=== PATIENT | female | born 1945 | race Caucasian/White ===

== ENCOUNTER → 2016-04-22 | Outpatient (CLI) | payer MEDICARE, OTHER ==
[~2016-04-22] MED LIST: ATR20T PO; BIOT25006 PO; FISH1CAP15 PO; LACT1CAP66 PO; LOSA100T7 PO; LVT.05T PO; NIAC250T17 PO; PNT40TEC PO; SERT100T PO
--- OUTSIDE RECORDS SUMMARY | 2016-04-22 11:01 | XMS REPORT | Continuity of Care Document ---
Author Author [facility] Organization [facility] Address Unknown Phone Unavailable Allergies Active Description Code Type Severity Reaction Onset Reported/Identified Relationship to Patient Clinical Status Yes Sulfa (Sulfonamide Antibiotics) [id number] Drug Allergy Unknown N/A 06/06/2008 Medications Problems Date Dx Coded Attending Type Code Diagnosis Diagnosed By 02/08/2013 MICHOACANO HARRINGTON PEARL TECHNICIAN Ot 327.23 OBSTRUCTIVE SLEEP APNEA (ADULT) ( PEDIATR 05/28/2013 JEIMY KINSEY FACC, MAYA FACP CCDS Ot 244.9 HYPOTHYROIDISM NOS 05/28/2013 JEIMY KINSEY FACC, MAYA FACP CCDS Ot 272.4 HYPERLIPIDEMIA NEC/NOS 05/28/2013 JEIMY KINSEY FACC, ALI FACP CCDS Ot 401.9 HYPERTENSION NOS 05/28/2013 JEIMY KINSEY FACC, ALI FACP CCDS Ot 780.57 UNSPECIFIED SLEEP APNEA 05/28/2013 JEIMY KINSEY FACC, MAYA FACP CCDS Ot 780.79 OTH MALAISE FATIGUE 05/28/2013 JEIMY KINSEY FACC, MAYA FACP CCDS Ot 785.1 PALPITATIONS 05/28/2013 JEIMY KINSEY FACC, MAYA FACP CCDS Ot 786.09 RESPIRATORY ABNORM NEC 05/28/2013 JEIMY KINSEY FACC, MAYA FACP CCDS Ot 786.59 CHEST PAIN NEC 05/28/2013 JEIMY KINSEY FACC, MAYA FACP CCDS Ot V58.69 OTH MED,LT,CURRENT USE 11/14/2014 Ot V76.12 11/14/2014 Ot 729.81 11/14/2014 Ot 396.8 11/14/2014 Ot 397.0 11/14/2014 Ot 429.3 11/14/2014 Ot 786.09 11/14/2014 Ot V17.49 11/14/2014 Ot 786.09 11/14/2014 Ot 786.50 11/14/2014 Ot V58.66 11/14/2014 Ot V58.69 11/14/2014 Ot V76.12 11/14/2014 Ot 786.09 11/14/2014 REYNALDO KINSEY, MAICO Chicas Ot 793.89 11/14/2014 REYNALDO KINSEY, MAICO Chicas Ot V76.12 12/08/2014 MAICO JACOBS MD Ot V76.12 01/21/2015 CHARLEY BERG DO Ot G47.33 01/21/2015 CHARLEY BERG DO Ot R06.09 07/18/2015 Ot 729.81 SWELLING OF LIMB 07/18/2015 Ot 396.8 MITR/AORTIC MULT INVOLV 07/18/2015 Ot 397.0 TRICUSPID VALVE DISEASE 07/18/2015 Ot 429.3 CARDIOMEGALY 07/18/2015 Ot 786.09 RESPIRATORY ABNORM NEC 07/18/2015 Ot V17.49 FAMILY HISTORY OF OTHER CARDIOVASCULAR D 07/18/2015 Ot 786.09 RESPIRATORY ABNORM NEC 07/18/2015 Ot 786.50 CHEST PAIN NOS 07/18/2015 Ot V58.66 LONG-TERM (CURRENT) USE OF ASPIRIN 07/18/2015 Ot V58.69 OTH MED,LT,CURRENT USE 07/18/2015 Ot V76.12 OTH SCREEN MAMMO-MALIGN NEOPLASM OF WOLF 07/18/2015 Ot 786.09 RESPIRATORY ABNORM NEC 07/18/2015 REYNALDO KINSEY, MAICO Chicas Ot 793.89 OTH (ABN) FINDINGS ON RADIOLOGICAL EXAMI 07/18/2015 REYNALDO KINSEY, MAICO Chicas Ot V76.12 OTH SCREEN MAMMO-MALIGN NEOPLASM OF WOLF 07/18/2015 MAICO JACOBS MD Ot V76.12 OTH SCREEN MAMMO-MALIGN NEOPLASM OF WOLF 07/18/2015 CHARLEY BERG DO Ot G47.33 OBSTRUCTIVE SLEEP APNEA (ADULT) (PEDIATR 07/18/2015 CHARLEY BERG DO Ot R06.09 OTHER FORMS OF DYSPNEA 07/21/2015 KAMAR REYNA APRN Ot M19.012 PRIMARY OSTEOARTHRITIS, LEFT SHOULDER 07/21/2015 KAMAR REYNA APRN Ot M25.512 PAIN IN LEFT SHOULDER 07/28/2015 KAMAR REYNA APRN Ot M25.512 PAIN IN LEFT SHOULDER 07/28/2015 KAMAR REYNA APRN Ot M54.9 DORSALGIA, UNSPECIFIED 08/11/2015 AXEL, KAMAR M BANKING OFFICER Ot M19.012 PRIMARY OSTEOARTHRITIS, LEFT SHOULDER 08/11/2015 KAMAR REYNA Bharat BANKING OFFICER Ot M25.512 PAIN IN LEFT SHOULDER 08/14/2015 ISAAC REYNAARA Nicholson BANKING OFFICER Ot M19.012 PRIMARY OSTEOARTHRITIS, LEFT SHOULDER 08/14/2015 ISAAC REYNAARA Nicholson BANKING OFFICER Ot M25.512 PAIN IN LEFT SHOULDER 01/12/2016 KAMAR REYNA BANKING OFFICER Ot Z12.31 ENCNTR SCREEN MAMMOGRAM FOR MALIGNANT NE 01/12/2016 KAMAR REYNA BANKING OFFICER Ot Z12.31 ENCNTR SCREEN MAMMOGRAM FOR MALIGNANT NE 01/13/2016 KAMAR REYNA BANKING OFFICER Ot Z12.31 ENCNTR SCREEN MAMMOGRAM FOR MALIGNANT NE 01/13/2016 KAMAR REYNA BANKING OFFICER Ot Z12.31 ENCNTR SCREEN MAMMOGRAM FOR MALIGNANT NE 02/03/2016 KAMAR REYNA APRN Ot Z12.31 ENCNTR SCREEN MAMMOGRAM FOR MALIGNANT NE Procedures Results Encounters ACCT No. Visit Date/Time Discharge Status Pt. Type Provider Facility Loc./Unit Complaint [id number] 12/29/2014 13:55:00 2014 23:59:59 CLS Outpatient CHARLEY BERG DO [facility] RT [id number] 11/14/2014 13:13:00 2014 23:59:59 CLS Outpatient MAICO JACOBS MD [facility] RAD [id number] 05/28/2013 06:59:00 2013 14:00:00 DIS Outpatient JEIMY KINSEY FACCMAYA FACP CCDS [facility] CATH [id number] 04/25/2013 09:40:00 2013 23:59:59 CLS Outpatient MAICO JACOBS MD [facility] RAD [id number] 02/07/2013 20:55:00 2012 07:10:00 DIS Outpatient MICHOACANO HARRINGTON PEARL TECHNICIAN [facility] SLEEP [id number] 01/12/2016 09:28:00 ACT Outpatient KAMAR REYNA APRN [facility] RAD SCREENING [id number] 07/24/2015 15:05:00 ACT Outpatient KAMAR REYNA APRN [facility] RAD [id number] 07/18/2015 08:24:00 ACT Outpatient KAMAR REYNA APRN [facility] RAD [id number] 11/14/2014 13:12:00 Document Registration [id number] 11/14/2014 13:12:00 Document Registration [id number] 11/14/2014 13:12:00 Document Registration [id number] 11/14/2014 13:12:00 Document Registration [id number] 08/05/2010 08:52:00 Document Registration [id number] 08/10/2009 09:15:00 Document Registration
--- NOTE | 2016-04-22 11:23 | Diagnostic Imaging Report ---
PA and lateral views of the chest. INDICATION: Cough. COMPARISON: 12/29/2014. FINDINGS: There is cardiomegaly with no pulmonary edema. The lungs are hyperinflated. No focal consolidation. No effusion or pneumothorax. The mediastinum and bambi appear unremarkable. IMPRESSION: Cardiomegaly. COPD. Dictated by: Dictated on workstation # [id number]
== END ==
LOC: RAD 10:57
PROVIDERS: ATTEND Nurse Practitioner Family
DX: J45.909 Unspecified asthma, uncomplicated (principal)
CPT/HCPCS: 71020

== ENCOUNTER → 2016-05-18 | Outpatient (CLI) | payer MEDICARE, OTHER ==
[2016-05-18 14:46] LABS: BASOPHILS % (AUTO) 0 % (0-10); EOSINOPHILS # (AUTO) 0.1 10^3/uL (0.0-0.3); EOSINOPHILS % (AUTO) 3 % (0-10); LYMPHOCYTES # (AUTO) 1.2 X 10^3 (1.0-4.0); LYMPHOCYTES % (AUTO) 25 % (12-44); MEAN CORPUSCULAR HEMOGLOBIN 33 PG (25-34); MEAN CORPUSCULAR HGB CONC 34 G/DL (32-36); MEAN CORPUSCULAR VOLUME 97 FL (80-99); MEAN PLATELET VOLUME 10.1 FL (7.4-10.4); MONOCYTES # (AUTO) 0.4 X 10^3 (0.0-1.0); MONOCYTES % (AUTO) 8 % (0-12); NEUTROPHILS # (AUTO) 3.1 X 10^3 (1.8-7.8); NEUTROPHILS % (AUTO) 64 % (42-75); PLATELET COUNT 254 10^3/uL (130-400); RED BLOOD COUNT 4.24 10^6/uL (4.35-5.85); RED CELL DISTRIBUTION WIDTH 13.5 % (10.0-14.5); WHITE BLOOD COUNT 4.9 10^3/uL (4.3-11.0)
[2016-05-18 15:01] LABS: LYMPHOCYTES % (MANUAL) 20 %; NEUTROPHILS % (MANUAL) 64 %
[2016-05-18 15:02] LABS: EOSINOPHILS % (MANUAL) 2 %; REACTIVE LYMPHOCYTES 5 %; STOMATOCYTES SLIGHT
[2016-05-19 02:33] LABS: IGE DETAIL 10.8 IU/mL
[2016-05-19 07:46] LABS: INT IGE See Footnote
[2016-05-19 08:59] LABS: ELM TREE <0.35 kU/L (<0.35); ELM TREE CL CLASS 0; OAK TREE <0.35 kU/L (<0.35); OAK TREE CL CLASS 0; PECAN TR CL CLASS 0
[2016-05-19 09:00] LABS: BERMUDA CL CLASS 0; BERMUDA GRASS RAST <0.35 kU/L (<0.35); CAT DANDER CL CLASS 0; CAT DANDER RAST <0.35 kU/L (<0.35); DOG DANDER CL CLASS 0; DOG DANDER RAST <0.35 kU/L (<0.35); JOHNSON GR CL CLASS 0; JOHNSON GRASS RAST <0.35 kU/L (<0.35); KENT BLUE CL CLASS 0; KENTUCKY BLUE GRASS RAST <0.35 kU/L (<0.35); MARSH ELDER RAST <0.35 kU/L (<0.35); RAGWEED CL CLASS 0; RAGWEED RAST <0.35 kU/L (<0.35); ROUGH MARSH CL CLASS 0
[2016-05-19 09:01] LABS: ALLERGEN INTERP SEE FOOTNOTE; ALT TEN CL CLASS 0; CLADOSPORIUM CL CLASS 0; CLADOSPORIUM MOLD RAST <0.35 kU/L (<0.35); DUST MITE CL CLASS 0; DUST MITE RAST <0.35 kU/L (<0.35)
== END ==
LOC: LAB 13:53
PROVIDERS: ATTEND Nurse Practitioner Family
DX: J45.909 Unspecified asthma, uncomplicated (principal); R06.09 Other forms of dyspnea; G47.33 Obstructive sleep apnea (adult) (pediatric); Z87.891 Personal history of nicotine dependence
CPT/HCPCS: 36415; 82785; 85007; 85027; 86003

== ENCOUNTER → 2017-01-16 | Outpatient (CLI) | payer MEDICARE, OTHER | LOC: CARD 10:16 | PROVIDERS: ATTEND Nurse Practitioner Family | DX: I65.23 Occlusion and stenosis of bilateral carotid arteries (principal); I10 Essential (primary) hypertension; E78.4 Other hyperlipidemia; I34.0 Nonrheumatic mitral (valve) insufficiency; G47.33 Obstructive sleep apnea (adult) (pediatric) | CPT/HCPCS: 93306 ==

== ENCOUNTER → 2017-02-27 | Outpatient (CLI) | payer MEDICARE, OTHER ==
--- NOTE | 2017-02-27 13:35 | Diagnostic Imaging Report ---
INDICATION: Screening. The current study was also evaluated with a Computer Aided Detection (CAD) system. Comparison made with prior examination from 01/12/2016, 11/14/2014, 04/25/13 and 12/28/10. FINDINGS: There are scattered fibroglandular densities bilaterally. There are a few benign type calcifications. There is no dominant mass, spiculated lesion or suspicious calcification identified. Skin, nipples and axilla are unremarkable. IMPRESSION: Category 2 benign. ACR BI-RADS Category 2: Benign findings. Result letter will be mailed to the patient. Note: At least 10% of breast cancer is not imaged by mammography. Dictated by: Dictated on workstation # [id number]
== END ==
LOC: RAD 10:01
PROVIDERS: ATTEND Nurse Practitioner Family
DX: Z12.31 Encounter for screening mammogram for malignant neoplasm of breast (principal)
CPT/HCPCS: 77067

== ENCOUNTER 2017-11-16 05:36 | Outpatient (CLI) | payer MEDICARE, OTHER ==
[~2017-11-16] VITALS: Ht 162.6 cm; Wt 90.7 kg
[2017-11-16] MEDS ORDERED: LEVO75TA6 PO (09:43)
[2017-11-16] MEDS ORDERED: MULT-985 PO (09:43)
[2017-11-16] MEDS ORDERED: MELO7.5T46 PO (09:43)
[2017-11-16] MEDS ORDERED: MONT10TA24 PO (09:43)
[2017-11-16] MEDS ORDERED: ASCO500T5 PO (09:43)
[2017-11-16] MEDS ORDERED: GABA-488 PO (09:43)
[2017-11-16] MEDS ORDERED: ATOR20TA66 PO (09:43)
[2017-11-16] MEDS ORDERED: PANT40TA3 PO (09:43)
[2017-11-16] MEDS ORDERED: LOSA100T8 PO (09:43)
[2017-11-16] MEDS ORDERED: LACT1CAP74 PO (09:43)
[2017-11-16] MEDS ORDERED: SERT100T8 PO (09:43)
[2017-11-17] MEDS ORDERED: HYOS0.1283 SL (11:21)
== END 2017-11-16 09:47 | disposition home or self-care (01) ==
LOC: PREOP 05:36
PROVIDERS: ATTEND Internal Medicine
DX: Z01.818 Encounter for other preprocedural examination (principal)

== ENCOUNTER 2017-11-17 07:56 | Day surgery (SDC) | payer MEDICARE, OTHER ==
--- NOTE | 2017-11-16 19:47 | HISTORY AND PHYSICAL ---
DATE OF SERVICE: COLONOSCOPY HISTORY AND PHYSICAL HISTORY OF PRESENT ILLNESS: The patient is a 72-year-old white female referred by Dr. Sahu for screening colonoscopy. She also reports symptomatic reflux sounding symptoms despite 40 mg of pantoprazole daily, so she will be undergoing diagnostic EGD on 11/17. I last performed colonoscopy on her 10 years ago, at which time no evidence for neoplasia was identified. She does report about a month history of intermittent diarrhea following unknown antibiotic use for an abscessed tooth, thus she underwent root canal and has been off of antibiotics for the past several weeks. She reports 1 to 2 loose stools without evidence for blood and no chills, fever or tenesmus. She has no associated abdominal cramping and is better, but still reports postprandial stool urgency with occasional fecal incontinence. She is still passing a fair amount of gas, much more so than baseline. She denies any associated dysphagia, melena or bright red blood per rectum, but does have significant epigastric and lower precordial burning, worse in the evening. It does not wake her up from sleep. She reports no known past history of EGD evaluation. FAMILY HISTORY: She is not aware of any family history for GI tract malignancy including colon cancer. Father and mother both had history of hypertension. Father also had coronary artery disease, in 70s. SOCIAL HISTORY: She reports no significant past drinking and no smoking history. PAST SURGICAL HISTORY: He has had bilateral cataract extraction, right total knee replacement in March of this year and right hammertoe release. She has had several hand surgeries. PAST MEDICAL HISTORY: Significant for thyroid replacement, depression, reflux, hypertension, hyperlipidemia with no known history of coronary artery disease. She underwent cardiac catheterization in 2013, which revealed no significant disease. Ejection fraction was estimated at 60%. She also has obstructive sleep apnea. Her diarrhea has been significant enough that she has had several episodes of fecal incontinence, the last occurring about 2 weeks ago. There is associated urgency with this. PHYSICAL EXAMINATION: GENERAL: Reveals a pleasant white female who did not appear to be in acute distress. VITAL SIGNS: Weight was up 9 pounds from 10 years ago. Blood pressure 109/80, heart rate 72 and regular. HEENT: Unremarkable. Sclerae nonicteric. NECK: Revealed no JVD, adenopathy or bruits. CHEST: Clear to auscultation. CARDIOVASCULAR: Reveals a regular rate and rhythm without murmur, S3 or S4. ABDOMEN: Soft, supple without mass, organomegaly or tenderness. Bowel sounds are positive. No distention is noted. No bruits are appreciated. EXTREMITIES: Reveal no cyanosis, clubbing or edema. ASSESSMENT AND PLAN: The patient is set up for screening colonoscopy on 11/17 as well as diagnostic EGD for evaluation of reflux symptoms that are refractory to PPI therapy and no reported past history of EGD evaluation. I thank you for the referral of this pleasant lady. Job ID: [id number] DocumentID: [id number] Dictated Date: 11/15/2017 17:08:41 Auto Bench Mechanic Date: 11/15/2017 17:42:36 Dictated By: ELIO NOEL MD [facility]
[~2017-11-17] VITALS: Ht 162.6 cm; Wt 90.7 kg
[~2017-11-17 07:56] MED LIST changes: +ASCO500T5 PO; +ATOR20TA66 PO; +GABA-488 PO; +LACT1CAP74 PO; +LEVO75TA6 PO; +LOSA100T8 PO; +MELO7.5T46 PO; +MONT10TA24 PO; +MULT-985 PO; +PANT40TA3 PO; +SERT100T8 PO
--- OUTSIDE RECORDS SUMMARY | 2017-11-17 08:01 | XMS REPORT | CCD ---
Author Author Michaela Sahu Organization Michaela Sahu MD, [facility] Address [address] [place] [address] Phone Care Team Providers Care Swatch Cutter Name Role Phone PP Unavailable CCM Unavailable Summary Purpose Interface Exchange Insurance Providers Payer name Policy type / Coverage type Covered republican ID Effective Begin Date Effective End Date WPS Medicare Part B [id number] Unknown [employer] [id number] Unknown Family history Mother Diagnosis Age At Onset Arthritis Unknown Osteoporosis Unknown Hypertension Unknown Hyperlipidemia Unknown Father Diagnosis Age At Onset Arthritis Unknown Alcoholism Unknown Hypertension Unknown Anemia Unknown Brother Diagnosis Age At Onset Skin cancer Unknown Arthritis Unknown Hypertension Unknown Hyperlipidemia Unknown Sister Diagnosis Age At Onset Arthritis Unknown Diabetes Unknown Depression Unknown Hyperlipidemia Unknown Breast cancer Unknown Hypertension Unknown Anemia Unknown Osteoporosis Unknown Social History Social History Element Codes Description Effective Dates Number of children Unknown 0 04/23/2013 Living arrangements Unknown House 04/23/[address]: 0721843 Former smoker 04/23/2013 Number of years using tobacco Unknown 20 quit 1998 1 1/2 pack daily 04/23/[address]: 311282 Currently drinks alcohol 10-15 DRINKS WEEKLY 04/23/2013 Has the patient ever used illegal drugs? Unknown Has never used illegal drugs 04/23/2013 Allergies, Adverse Reactions, Alerts Substance Reaction Codes Entered Date Inactivated Date Status Grasses rash, cough Unknown 04/22/2013 No Inactive Date Active Mold cough, rash Unknown 04/22/2013 No Inactive Date Active SULFA (SULFONAMIDES) emesis Unknown 04/22/2013 No Inactive Date Active Past Medical History Illness Codes Condition Status Onset Date Resolved Date Localized edema ICD-9 : 782.3 ICD-10: R60.0 Active 02/09/2017 Unknown Rash and other nonspecific skin eruption ICD-9: 782.1 ICD-10: R21 Active 02/09/2017 Unknown Encounter for screening mammogram for malignant neoplasm of breast ICD-9: V76.12 ICD-10: Z12.31 Active 01/07/2016 Unknown Diseases of lips ICD-9 : 528.5 ICD-10: K13.0 Active 12/03/2015 Unknown Pain in left arm ICD-9 : 729.5 ICD-10: M79.602 Active 07/20/2015 Unknown Pain in left shoulder ICD-9: 719.41 ICD-10: M25.512 Active 07/20/2015 Unknown Pain in thoracic spine ICD-9: 724.1 ICD-10: M54.6 Active 07/20/2015 Unknown Dyspnea ICD-9: 786.09 Active 10/27/2014 Unknown Screening for malignant neoplasm of breast ICD-9: V76.10 Active 10/27/2014 Unknown Smoking history ICD-9 : V15.82 Active 10/27/2014 Unknown Osteoarthritis Unknown Active 06/23/2014 Unknown Osteoarthritis ICD-9: 715.90 Active 06/22/2014 Unknown Shoulder pain ICD-9: 719.41 Active 06/22/2014 Unknown Hyperlipidemia Unknown Active 04/21/2014 Unknown HYPERLIPIDEMIA ICD-9: 272.4 Active 04/21/2014 Unknown Pain, dental ICD-9: 525.9 Active 12/23/2013 Unknown Sinusitis ICD-9: 473.9 Active 12/23/2013 Unknown ESSENTIAL HYPERTENSION ICD-9: 401.9 Active 12/02/2013 Unknown HYPOTHYROIDISM ICD-9: 244.9 Active 12/02/2013 Unknown Asthma Unknown Active 08/01/2013 Unknown Asthma, allergic ICD-9 : 493.90 Active 08/01/2013 Unknown Depression Unknown Active 04/23/2013 Unknown Hypertension Unknown Active 04/23/2013 Unknown Hypothryroidism Unknown Active 04/23/2013 Unknown AA (alcohol abuse) ICD -9: 305.00 Active 04/23/2013 Unknown Dietary counseling ICD -9: V65.3 Active 04/23/2013 Unknown EDEMA ICD-9: 782.3 Active 04/23/2013 Unknown OBESITY ICD-9: 278.00 Active 04/23/2013 Unknown Pes planus ICD-9: 734 Active 04/23/2013 Unknown Psoriasis ICD-9: 696.1 Active 04/23/2013 Unknown Problems Condition Codes Effective Dates Condition Status Localized edema ICD-9 : 782.3 ICD-10: R60.0 02/09/2017 Active Rash and other nonspecific skin eruption ICD-9: 782.1 ICD-10: R21 02/09/2017 Active Encounter for screening mammogram for malignant neoplasm of breast ICD-9: V76.12 ICD-10: Z12.31 01/07/2016 Active Diseases of lips ICD-9 : 528.5 ICD-10: K13.0 12/03/2015 Active Pain in left arm ICD-9 : 729.5 ICD-10: M79.602 07/20/2015 Active Pain in left shoulder ICD-9: 719.41 ICD-10: M25.512 07/20/2015 Active Pain in thoracic spine ICD-9: 724.1 ICD-10: M54.6 07/20/2015 Active Dyspnea ICD-9: 786.09 10/27/2014 Active Screening for malignant neoplasm of breast ICD-9: V76.10 10/27/2014 Active Smoking history ICD-9 : V15.82 10/27/2014 Active Osteoarthritis Unknown 06/23/2014 Active Osteoarthritis ICD-9: 715.90 06/22/2014 Active Shoulder pain ICD-9: 719.41 06/22/2014 Active Hyperlipidemia Unknown 04/21/2014 Active HYPERLIPIDEMIA ICD-9: 272.4 04/21/2014 Active Pain, dental ICD-9: 525.9 12/23/2013 Active Sinusitis ICD-9: 473.9 12/23/2013 Active ESSENTIAL HYPERTENSION ICD-9: 401.9 12/02/2013 Active HYPOTHYROIDISM ICD-9: 244.9 12/02/2013 Active Asthma Unknown 08/01/2013 Active Asthma, allergic ICD-9 : 493.90 08/01/2013 Active Depression Unknown 04/23/2013 Active Hypertension Unknown 04/23/2013 Active Hypothryroidism Unknown 04/23/2013 Active AA (alcohol abuse) ICD -9: 305.00 04/23/2013 Active Dietary counseling ICD -9: V65.3 04/23/2013 Active EDEMA ICD-9: 782.3 04/23/2013 Active OBESITY ICD-9: 278.00 04/23/2013 Active Pes planus ICD-9: 734 04/23/2013 Active Psoriasis ICD-9: 696.1 04/23/2013 Active Medications Medication Codes Instructions Start Date Stop Date Status Fill Instructions betamethasone dipropionate 0.05 % topical cream RxNorm: 581464 1 Application TOP BID 02/09/2017 No Stop Date Active doxycycline hyclate 100 mg capsule RxNorm: 8873125 1 Capsule(s) PO BID 02/09/2017 02/18/2017 Inactive Lasix 20 mg tablet RxNorm: 411203 1 Tablet(s) PO daily 201602/08/2017 Inactive potassium chloride ER 10 mEq tablet,extended release RxNorm: 286803 1 Tablet(s) PO daily take while on the lasix 02/09/2017 02/11/2017 Inactive betamethasone dipropionate 0.05 % topical cream RxNorm: 280090 1 Application TOP BID 02/09/2017 02/08/2017 Inactive potassium chloride ER 10 mEq tablet,extended release RxNorm: 773222 1 Tablet(s) PO daily take while on the lasix 02/09/2017 02/08/2017 Inactive doxycycline hyclate 100 mg capsule RxNorm: 9247338 1 Capsule(s) PO BID 02/09/2017 02/08/2017 Inactive Lasix 20 mg tablet RxNorm: 993247 1 Tablet(s) PO daily 201602/11/2017 Inactive losartan 100 mg tablet RxNorm: 714734 TAKE 1 TABLET EVERY DAY 09/28/2016 09/22/2017 Active sertraline 100 mg tablet RxNorm: 349766 TAKE 1 TABLET EVERY DAY 09/28/2016 09/22/2017 Active pantoprazole 40 mg tablet,delayed release RxNorm: 795680 TAKE 1 TABLET EVERY DAY 09/28/2016 09/22/2017 Active Synthroid 75 mcg tablet RxNorm: 524857 TAKE 1 TABLET EVERY DAY 04/25/2016 04/19/2017 Active pantoprazole 40 mg tablet,delayed release RxNorm: 262556 TAKE 1 TABLET EVERY DAY 12/14/2015 09/27/2016 Inactive sertraline 100 mg tablet RxNorm: 788039 TAKE 1 TABLET EVERY DAY 12/14/2015 09/27/2016 Inactive losartan 100 mg tablet RxNorm: 820640 TAKE 1 TABLET EVERY DAY 12/14/2015 09/27/2016 Inactive Voltaren 1 % topical gel RxNorm: 486137 1 TOP BID 07/21/2015 No Stop Date Active naproxen 500 mg tablet RxNorm: 127249 1 Tablet(s) PO BID 201508/03/2015 Inactive Pennsaid 20 mg/gram/actuation (2 %) topical soln in metered -dose pump RxNorm: 4393343 1 Application TOP BID as needed for pain 07/17/2015 08/15/2015 Inactive cyclobenzaprine 5 mg tablet RxNorm: 058177 1 Tablet(s) PO TID as needed muscle spasms 07/17/2015 07/26/2015 Inactive sertraline 100 mg tablet RxNorm: 449446 1 TABLET(S) PO DAILY 12/13/2015 Inactive sertraline 100 mg tablet RxNorm: 717709 Tablet(s) 1 TABLET(S) PO DAILY 04/08/2015 12/13/2015 Inactive Synthroid 75 mcg tablet RxNorm: 654210 Tablet(s) 1 TABLET(S) PO DAILY 04/08/2015 10/04/2015 Inactive [SAVINGS FOR UNINSURED PATIENTS -- BIN:[id number], PCN: ASPROD1, Group: [id number], ID# [id number], Process claim through [employer], for questions: [phone]. THIS IS NOT INSURANCE.] losartan 100 mg tablet RxNorm: 403733 1 Tablet(s) PO daily 10/04/2015 Inactive Singulair 10 mg tablet RxNorm: 712084 1 TABLET(S) PO DAILY 07/31/2015 Inactive Synthroid 75 mcg tablet RxNorm: 709416 1 TABLET(S) PO DAILY 04/07/2015 Inactive [SAVINGS FOR UNINSURED PATIENTS -- BIN:900133, PCN: ASPROD1, Group: [id number] , ID# [id number], Process claim through [employer], for questions: . THIS IS NOT INSURANCE.] albuterol sulfate HFA 90 mcg/actuation aerosol inhaler RxNorm: 4641443 1 Puff(s) INH QID as needed dyspnea 10/28/201402/24 Inactive Singulair 10 mg tablet RxNorm: 329605 1 Tablet(s) PO daily 09/201402/01/2015 Inactive sertraline 100 mg tablet RxNorm: 696015 1 TABLET(S) PO DAILY 04/07/2015 Inactive losartan 100 mg tablet RxNorm: 929481 1 Tablet(s) PO daily 04/07/2015 Inactive pantoprazole 40 mg tablet,delayed release RxNorm: 771461 1 Tablet(s) PO daily 08/04/2014 07/29/2015 Inactive Zorvolex 35 mg capsule RxNorm: 5133030 1 Capsule(s) PO TID as needed for pain 06/23/2014 07/16/2014 Inactive [SAVINGS FOR NON-COVERED DRUGS -- BIN:411243, PCN: ASPROD1, Group: XXXXX, ID# [id number], Questions: . THIS IS NOT INSURANCE.] clindamycin 300 mg capsule RxNorm: 662235 1 Capsule(s) PO TID 12/23/2013 12/29/2013 Inactive [SAVINGS FOR UNINSURED PATIENTS -- BIN:270399, PCN: ASPROD1, Group: [id number], ID# [id number], Process claim through [employer], for questions: [phone]. THIS IS NOT INSURANCE.] Synthroid 75 mcg tablet RxNorm: 811425 1 Tablet(s) PO daily 04/201312/17/2014 Inactive [SAVINGS FOR UNINSURED PATIENTS -- BIN:809053, PCN: ASPROD1, Group: [id number] , ID# [id number], Process claim through [employer], for questions: . THIS IS NOT INSURANCE.] Nasonex 50 mcg/actuation [place] RxNorm: 107002 1 [place] NASAL BID 08/01/2013 02/26/2014 Inactive Synthroid 50 mcg tablet RxNorm: 897665 1 Tablet(s) PO daily 01/201412/22/2013 Inactive sertraline 100 mg tablet RxNorm: 218409 1 Tablet(s) PO daily 06/20/2014 Inactive Synthroid 50 mcg tablet RxNorm: 263760 1 Tablet(s) PO daily 08/201307/31/2013 Inactive losartan 100 mg tablet RxNorm: 011393 1 Tablet(s) PO daily 08/201306/20/2014 Inactive pantoprazole 40 mg tablet,delayed release RxNorm: 395377 1 Tablet(s) PO daily 06/26/2013 06/20/2014 Inactive levothyroxine 50 mcg tablet RxNorm: 384993 1 Tablet(s) PO daily 06/05/2013 06/25/2013 Inactive clobetasol 0.05 % topical cream RxNorm: 003847 1 Application TOP PRN 04/23/2013 No Stop Date Active put on pt profile, she will call to dash levothyroxine 50 mcg tablet RxNorm: 388562 1 Tablet(s) PO daily 04/23/2013 06/04/2013 Inactive Fish Oil 1,000 mg capsule RxNorm: 2 Capsule(s) PO BID No Start Date Active has 2000 mg take one bid niacin 500 mg tablet RxNorm: 560811 1 Tablet(s) PO QHS No Start Date Active Tylenol 325 mg tablet RxNorm: 313119 Tablet(s) PO BID No Start Date Active atorvastatin 20 mg tablet RxNorm: 659520 1 Tablet(s) PO QHS No Start Date Active losartan 100 mg tablet RxNorm: 589599 1 Tablet(s) PO daily No Start Date 06/25/2013 Inactive levothyroxine 50 mcg tablet RxNorm: 505000 oral No Start Date 04/22/2013 Inactive pantoprazole 40 mg tablet,delayed release RxNorm: 367523 1 Tablet(s) PO daily No Start Date 06/25/2013 Inactive clobetasol 0.05 % topical cream RxNorm: 787069 1 Application TOP PRN No Start Date 04/22/2013 Inactive sertraline 100 mg tablet RxNorm: 000928 1 Tablet(s) PO daily No Start Date 06/25/2013 Inactive Medication Administered No Medication Administered data Immunizations Vaccine Codes Date Status Influenza CVX: 141 01/09/2017 completed Pneumococcal CVX: 133 04/14/2016 completed Influenza CVX: 141 12/03/2012 completed Assessments Condition Codes Effective Dates Localized edema ICD-10: R60.0 ICD-9: 782.3 02/09/2017 Rash and other nonspecific skin eruption ICD-10: R21 ICD-9: 782.1 02/09/2017 Encounter for screening mammogram for malignant neoplasm of breast ICD-10: Z12.31 ICD-9: V76.12 01/08/2016 Diseases of lips ICD-10: K13.0 ICD-9: 528.5 12/04/2015 Pain in left arm ICD-10: M79.602 ICD-9: 729.5 07/21/2015 Pain in left shoulder ICD-10: M25.512 ICD-9: 719.41 07/21/2015 Pain in thoracic spine ICD-10: M54.6 ICD-9: 724.1 07/21/2015 Screening for malignant neoplasm of breast ICD-9: V76.10 10/28/2014 Dyspnea ICD-9: 786.09 10/28/2014 Smoking history ICD-9: V15.82 10/28/2014 ESSENTIAL HYPERTENSION ICD-9: 401.9 10/28 Shoulder pain ICD-9: 719.41 06/23/2014 Osteoarthritis ICD-9: 715.90 06/23/2014 HYPOTHYROIDISM ICD-9: 244.9 04/21/2014 HYPERLIPIDEMIA ICD-9: 272.4 04/21/2014 Sinusitis ICD-9: 473.9 12/23/2013 HYPOPOTASSEMIA ICD-9: 276.8 12/23/2013 Pain, dental ICD-9: 525.9 12/23/2013 Asthma, allergic ICD-9: 493.90 2013 OBESITY ICD-9: 278.00 04/23/2013 Pes planus ICD-9: 734 04/23/2013 Psoriasis ICD-9: 696.1 04/23/2013 Dietary counseling ICD-9: V65.3 2013 AA (alcohol abuse) ICD-9: 305.00 2013 EDEMA ICD-9: 782.3 04/23/2013 Reason For Visit Reason For Visit Effective Dates Notes rash 02/09/2017 oral pain 12/04/2015 shoulder pain 07/21/2015 shoulder pain 07/17/2015 hypertension 10/28/2014 hip pain 06/23/2014 rt hypertension 04/21/2014 hypertension 12/23/2013 hypertension 12/02/2013 hypertension 08/01/2013 hair loss 04/23/2013 Results Observation Observation Code Item Item Code Result Date Free T4 Agw312 FREE T4 1.00 ng/dL 10/28/2014 Metabolic Ord15 NA 137 mEq/L 10/28/2014 Metabolic Ord15 K 4.5 mEq/L 10/28/2014 Metabolic Ord15 CL 103 mEq/L 10/28/2014 Metabolic Ord15 CO2 26.0 mEq/L 10/28/2014 Metabolic Ord15 GLUCOSE 108 mg/dL 10/28/2014 Metabolic Ord15 BUN 24 mg/dL 10/28/2014 Metabolic Ord15 Creat 1.1 mg/dL 10/28/2014 Metabolic Ord15 B/C Ratio 21.4 Ratio 10/28/2014 Metabolic Ord15 eGFR 51 ml/min/1.73m2 10/28/2014 Metabolic Ord15 Osmo 278 mOsmo 10/28/2014 Metabolic Ord15 ANION GAP 13 10/28/2014 Metabolic Ord15 CALCIUM 9.8 mg/dL 10/28/2014 Tsh Ord6 hTSH II 1.26 uIU/mL 10/28/2014 FREE T4 1354583 FREE T4 1.22 NG/DL 12/02/2013 TSH 0383662 TSH 2.064 uIU/ML 12/02/2013 GFR CALC 2601073 GFR AA 57.0L ML/MIN 12/02/2013 GFR CALC 0644711 GFR NON-AA 47.0L ML/MIN 12/02/2013 CHEM 14 1809030 AST 20 U/L 12/02/2013 CHEM 14 2353208 ALT 20 IU/L 12/02/2013 CHEM 14 3794339 BUN 21 MG/DL 12/02/2013 CHEM 14 7216825 ALBUMIN 4.4 GM/DL 12/02/2013 CHEM 14 1388977 CHLORIDE 104 MMOL/L 12/02/2013 CHEM 14 2965664 BILI TOT 0.3 MG/DL 12/02/2013 CHEM 14 3803519 ALK PHOS 80 U/L 12/02/2013 CHEM 14 7606917 SODIUM 139 MMOL/L 12/02/2013 CHEM 14 7104560 CREATININE 1.15 MG/DL 12/02/2013 CHEM 14 6569175 CALCIUM 9.7 MG/DL 12/02/2013 CHEM 14 0415837 POTASSIUM 4.5 MMOL/L 12/02/2013 CHEM 14 9265456 PROT TOT 6.7 GM/DL 12/02/2013 CHEM 14 8881823 GLUCOSE 102 MG/DL 12/02/2013 CHEM 14 2891495 BICARB 29 MMOL/L 12/02/2013 CHEM 14 3864327 ANION GAP 6 MEQ/L 12/02/2013 Review of Systems System Result Effective Dates Constitutional No recent illness 2016 Constitutional No chills 02/09/2017 Constitutional No diaphoresis 02/09/2017 Constitutional No fever 02/09/2017 Eyes No eye erythema 02/09/2017 Ears/Nose/Throat/Neck No nasal discharge 02/09/2017 Cardiovascular No chest pain/pressure Cardiovascular No dyspnea 02/09/2017 Respiratory No cough 02/09/2017 Respiratory No chest congestion 2016 Gastrointestinal No abdominal pain 2016 Musculoskeletal No joint complaint 2016 Dermatologic rash 02/09/2017 Neurologic No alteration of consciousness 02/09/2017 Neurologic No mental status change 2016 Constitutional No recent illness 2015 Constitutional No chills 12/04/2015 Constitutional No diaphoresis 12/04/2015 Constitutional No fever 12/04/2015 Eyes No eye erythema 12/04/2015 Ears/Nose/Throat/Neck oral lesion 2015 Ears/Nose/Throat/Neck oral pain 2015 Cardiovascular No dyspnea 12/04/2015 Cardiovascular No chest pain/pressure Respiratory No cough 12/04/2015 Respiratory No dyspnea 12/04/2015 Dermatologic sores 12/04/2015 Neurologic No alteration of consciousness 12/04/2015 Neurologic No mental status change 2015 Constitutional No recent illness 2015 Constitutional No fever 07/21/2015 Eyes No eye erythema 07/21/2015 Eyes No vision change 07/21/2015 Ears/Nose/Throat/Neck No nasal allergies 07/21/2015 Ears/Nose/Throat/Neck No nasal discharge 07/21/2015 Ears/Nose/Throat/Neck No sinus congestion 07/21/2015 Cardiovascular No chest pain/pressure Respiratory No chest congestion 2015 Respiratory No cough 07/21/2015 Respiratory No dyspnea 07/21/2015 Musculoskeletal stiffness 07/21/2015 Musculoskeletal No swelling 07/21/2015 Musculoskeletal arthralgia(s) 07/21/2015 Musculoskeletal joint complaint 2015 Musculoskeletal muscle weakness 2015 Musculoskeletal No myalgias 07/21/2015 Neurologic No alteration of consciousness 07/21/2015 Neurologic No mental status change 2015 Constitutional No recent illness 2015 Constitutional No chills 07/17/2015 Constitutional fatigue 07/17/2015 Constitutional No fever 07/17/2015 Constitutional No insomnia 07/17/2015 Constitutional obesity 07/17/2015 Eyes No eye erythema 07/17/2015 Eyes No vision change 07/17/2015 Ears/Nose/Throat/Neck No sinus congestion 07/17/2015 Cardiovascular No chest pain/pressure Respiratory No dyspnea 07/17/2015 Gastrointestinal No constipation 2015 Gastrointestinal No diarrhea 07/17/2015 Genitourinary/Nephrology No dysuria 07/16 Musculoskeletal stiffness 07/17/2015 Musculoskeletal No swelling 07/17/2015 Musculoskeletal arthralgia(s) 07/17/2015 Musculoskeletal muscle weakness 2015 Musculoskeletal No myalgias 07/17/2015 Ears/Nose/Throat/Neck No nasal allergies 07/17/2015 Ears/Nose/Throat/Neck No nasal discharge 07/17/2015 Respiratory No chest congestion 2015 Respiratory No cough 07/17/2015 Musculoskeletal joint complaint 2015 Neurologic No alteration of consciousness 07/17/2015 Neurologic No mental status change 2015 Constitutional No recent illness 2014 Constitutional No chills 10/28/2014 Constitutional fatigue 10/28/2014 Constitutional No fever 10/28/2014 Constitutional No insomnia 10/28/2014 Constitutional obesity 10/28/2014 Eyes No blindness 10/28/2014 Eyes No vision change 10/28/2014 Ears/Nose/Throat/Neck No dental pain 09/2014 Ears/Nose/Throat/Neck No dizziness 2014 Ears/Nose/Throat/Neck No dysphagia 2014 Ears/Nose/Throat/Neck No headache 2014 Ears/Nose/Throat/Neck No hearing loss 09/2014 Ears/Nose/Throat/Neck No nasal allergies 10/28/2014 Ears/Nose/Throat/Neck No sore throat 09/2014 Ears/Nose/Throat/Neck No postnasal drip 10/28/2014 Ears/Nose/Throat/Neck No sinus congestion 10/28/2014 Cardiovascular No chest pain/pressure 09/2014 Cardiovascular dyspnea 10/28/2014 Cardiovascular No edema 10/28/2014 Cardiovascular exercise intolerance 10/28 Cardiovascular hypertension 10/28/2014 Cardiovascular No near-syncope/dizziness 10/28/2014 Cardiovascular No palpitations 2014 Respiratory chest congestion 10/28/2014 Respiratory chest tightness 10/28/2014 Respiratory No cigarette smoking 2014 Respiratory cough 10/28/2014 Respiratory No dyspnea 10/28/2014 Respiratory No pedal edema 10/28/2014 Respiratory No snoring 10/28/2014 Respiratory No wheezing 10/28/2014 Gastrointestinal No hemorrhoids 2014 Gastrointestinal No abdominal pain 2014 Gastrointestinal No constipation 2014 Gastrointestinal No diarrhea 10/28/2014 Gastrointestinal gastroesophageal reflux 10/28/2014 Gastrointestinal No melena 10/28/2014 Gastrointestinal No nausea 10/28/2014 Gastrointestinal No vomiting 10/28/2014 Genitourinary/Nephrology No dysuria 10/28 Genitourinary/Nephrology No nocturia 09/2014 Genitourinary/Nephrology No urinary incontinence 10/28/2014 Genitourinary/Nephrology urinary retention/hesitancy 10/28/2014 Musculoskeletal stiffness 10/28/2014 Musculoskeletal No swelling 10/28/2014 Musculoskeletal arthralgia(s) 10/28/2014 Musculoskeletal muscle weakness 2014 Musculoskeletal No myalgias 10/28/2014 Dermatologic rash 10/28/2014 Neurologic No ataxia 10/28/2014 Neurologic No dizziness 10/28/2014 Psychiatric No anxiety 10/28/2014 Psychiatric depression 10/28/2014 Constitutional No recent illness 2014 Constitutional No chills 06/23/2014 Constitutional fatigue 06/23/2014 Constitutional No fever 06/23/2014 Constitutional No insomnia 06/23/2014 Constitutional obesity 06/23/2014 Eyes No blindness 06/23/2014 Eyes No vision change 06/23/2014 Ears/Nose/Throat/Neck No dental pain 05/2014 Ears/Nose/Throat/Neck No dizziness 2014 Ears/Nose/Throat/Neck No dysphagia 2014 Ears/Nose/Throat/Neck No headache 2014 Ears/Nose/Throat/Neck No hearing loss 05/2014 Ears/Nose/Throat/Neck No nasal allergies 06/23/2014 Ears/Nose/Throat/Neck No sore throat 05/2014 Ears/Nose/Throat/Neck No postnasal drip 06/23/2014 Ears/Nose/Throat/Neck No sinus congestion 06/23/2014 Cardiovascular No chest pain/pressure 05/2014 Cardiovascular dyspnea 06/23/2014 Cardiovascular No edema 06/23/2014 Cardiovascular exercise intolerance 06/23 Cardiovascular hypertension 06/23/2014 Cardiovascular No near-syncope/dizziness 06/23/2014 Cardiovascular No palpitations 2014 Respiratory chest congestion 06/23/2014 Respiratory chest tightness 06/23/2014 Respiratory No cigarette smoking 2014 Respiratory cough 06/23/2014 Respiratory No dyspnea 06/23/2014 Respiratory No pedal edema 06/23/2014 Respiratory No snoring 06/23/2014 Respiratory No wheezing 06/23/2014 Gastrointestinal No hemorrhoids 2014 Gastrointestinal No abdominal pain 2014 Gastrointestinal No constipation 2014 Gastrointestinal No diarrhea 06/23/2014 Gastrointestinal gastroesophageal reflux 06/23/2014 Gastrointestinal No melena 06/23/2014 Gastrointestinal No nausea 06/23/2014 Gastrointestinal No vomiting 06/23/2014 Genitourinary/Nephrology No dysuria 06/23 Genitourinary/Nephrology No nocturia 05/2014 Genitourinary/Nephrology No urinary incontinence 06/23/2014 Genitourinary/Nephrology urinary retention/hesitancy 06/23/2014 Musculoskeletal stiffness 06/23/2014 Musculoskeletal No swelling 06/23/2014 Musculoskeletal arthralgia(s) 06/23/2014 Musculoskeletal muscle weakness 2014 Musculoskeletal No myalgias 06/23/2014 Dermatologic rash 06/23/2014 Neurologic No ataxia 06/23/2014 Neurologic No dizziness 06/23/2014 Psychiatric No anxiety 06/23/2014 Psychiatric depression 06/23/2014 Musculoskeletal neck pain 06/23/2014 Musculoskeletal back pain 06/23/2014 Constitutional No recent illness 2014 Constitutional No chills 04/21/2014 Constitutional fatigue 04/21/2014 Constitutional No fever 04/21/2014 Constitutional No insomnia 04/21/2014 Constitutional obesity 04/21/2014 Eyes No blindness 04/21/2014 Eyes No vision change 04/21/2014 Ears/Nose/Throat/Neck No dental pain 03/2014 Ears/Nose/Throat/Neck No dizziness 2014 Ears/Nose/Throat/Neck No dysphagia 2014 Ears/Nose/Throat/Neck No headache 2014 Ears/Nose/Throat/Neck No hearing loss 03/2014 Ears/Nose/Throat/Neck No nasal allergies 04/21/2014 Ears/Nose/Throat/Neck No sore throat 03/2014 Ears/Nose/Throat/Neck No postnasal drip 04/21/2014 Ears/Nose/Throat/Neck No sinus congestion 04/21/2014 Cardiovascular No chest pain/pressure 03/2014 Cardiovascular dyspnea 04/21/2014 Cardiovascular No edema 04/21/2014 Cardiovascular exercise intolerance 04/21 Cardiovascular hypertension 04/21/2014 Cardiovascular No near-syncope/dizziness 04/21/2014 Cardiovascular No palpitations 2014 Respiratory chest congestion 04/21/2014 Respiratory chest tightness 04/21/2014 Respiratory No cigarette smoking 2014 Respiratory cough 04/21/2014 Respiratory No dyspnea 04/21/2014 Respiratory No pedal edema 04/21/2014 Respiratory No snoring 04/21/2014 Respiratory No wheezing 04/21/2014 Gastrointestinal No hemorrhoids 2014 Gastrointestinal No abdominal pain 2014 Gastrointestinal No constipation 2014 Gastrointestinal No diarrhea 04/21/2014 Gastrointestinal gastroesophageal reflux 04/21/2014 Gastrointestinal No melena 04/21/2014 Gastrointestinal No nausea 04/21/2014 Gastrointestinal No vomiting 04/21/2014 Genitourinary/Nephrology No dysuria 04/21 Genitourinary/Nephrology No nocturia 03/2014 Genitourinary/Nephrology No urinary incontinence 04/21/2014 Genitourinary/Nephrology urinary retention/hesitancy 04/21/2014 Musculoskeletal stiffness 04/21/2014 Musculoskeletal No swelling 04/21/2014 Musculoskeletal arthralgia(s) 04/21/2014 Musculoskeletal muscle weakness 2014 Musculoskeletal No myalgias 04/21/2014 Dermatologic rash 04/21/2014 Neurologic No ataxia 04/21/2014 Neurologic No dizziness 04/21/2014 Psychiatric No anxiety 04/21/2014 Psychiatric depression 04/21/2014 Constitutional recent illness 12/23/2013 Constitutional fatigue 12/23/2013 Psychiatric No anxiety 12/23/2013 Psychiatric No depression 12/23/2013 Constitutional No chills 12/23/2013 Constitutional No fever 12/23/2013 Constitutional No insomnia 12/23/2013 Constitutional obesity 12/23/2013 Eyes No blindness 12/23/2013 Eyes No vision change 12/23/2013 Ears/Nose/Throat/Neck dental pain 2013 Ears/Nose/Throat/Neck No dizziness 2013 Ears/Nose/Throat/Neck No dysphagia 2013 Ears/Nose/Throat/Neck No headache 2013 Ears/Nose/Throat/Neck No hearing loss 04/2013 Ears/Nose/Throat/Neck No nasal allergies 12/23/2013 Ears/Nose/Throat/Neck No sore throat 04/2013 Ears/Nose/Throat/Neck No postnasal drip 12/23/2013 Ears/Nose/Throat/Neck No sinus congestion 12/23/2013 Cardiovascular No chest pain/pressure 04/2013 Cardiovascular dyspnea 12/23/2013 Cardiovascular No edema 12/23/2013 Cardiovascular exercise intolerance 12/23 Cardiovascular hypertension 12/23/2013 Cardiovascular No near-syncope/dizziness 12/23/2013 Cardiovascular No palpitations 2013 Respiratory chest congestion 12/23/2013 Respiratory chest tightness 12/23/2013 Respiratory No cigarette smoking 2013 Respiratory cough 12/23/2013 Respiratory No dyspnea 12/23/2013 Respiratory No pedal edema 12/23/2013 Respiratory No snoring 12/23/2013 Respiratory No wheezing 12/23/2013 Gastrointestinal No abdominal pain 2013 Gastrointestinal No constipation 2013 Gastrointestinal No diarrhea 12/23/2013 Gastrointestinal gastroesophageal reflux 12/23/2013 Genitourinary/Nephrology No dysuria 12/23 Genitourinary/Nephrology No nocturia 04/2013 Genitourinary/Nephrology No urinary incontinence 12/23/2013 Genitourinary/Nephrology urinary retention/hesitancy 12/23/2013 Musculoskeletal stiffness 12/23/2013 Musculoskeletal No swelling 12/23/2013 Musculoskeletal arthralgia(s) 12/23/2013 Musculoskeletal muscle weakness 2013 Musculoskeletal No myalgias 12/23/2013 Dermatologic rash 12/23/2013 Constitutional fatigue 12/02/2013 Constitutional No insomnia 12/02/2013 Cardiovascular No chest pain/pressure Gastrointestinal No constipation 2013 Genitourinary/Nephrology urinary retention/hesitancy 12/02/2013 Respiratory cough 12/02/2013 Respiratory chest congestion 12/02/2013 Constitutional No recent illness 2013 Constitutional No chills 12/02/2013 Constitutional No fever 12/02/2013 Constitutional obesity 12/02/2013 Eyes No blindness 12/02/2013 Eyes No vision change 12/02/2013 Ears/Nose/Throat/Neck No dental pain Ears/Nose/Throat/Neck No dizziness 2013 Ears/Nose/Throat/Neck No dysphagia 2013 Ears/Nose/Throat/Neck No headache 2013 Ears/Nose/Throat/Neck No hearing loss Ears/Nose/Throat/Neck No nasal allergies 12/02/2013 Ears/Nose/Throat/Neck No sore throat Ears/Nose/Throat/Neck No postnasal drip 12/02/2013 Ears/Nose/Throat/Neck No sinus congestion 12/02/2013 Cardiovascular dyspnea 12/02/2013 Cardiovascular No edema 12/02/2013 Cardiovascular exercise intolerance 12/02 Cardiovascular hypertension 12/02/2013 Cardiovascular No near-syncope/dizziness 12/02/2013 Cardiovascular No palpitations 2013 Respiratory chest tightness 12/02/2013 Respiratory No cigarette smoking 2013 Respiratory No dyspnea 12/02/2013 Respiratory No pedal edema 12/02/2013 Respiratory No snoring 12/02/2013 Respiratory No wheezing 12/02/2013 Gastrointestinal No hemorrhoids 2013 Gastrointestinal No abdominal pain 2013 Gastrointestinal No diarrhea 12/02/2013 Gastrointestinal gastroesophageal reflux 12/02/2013 Gastrointestinal No melena 12/02/2013 Gastrointestinal No nausea 12/02/2013 Gastrointestinal No vomiting 12/02/2013 Genitourinary/Nephrology No dysuria 12/02 Genitourinary/Nephrology No nocturia Genitourinary/Nephrology No urinary incontinence 12/02/2013 Musculoskeletal stiffness 12/02/2013 Musculoskeletal No swelling 12/02/2013 Musculoskeletal arthralgia(s) 12/02/2013 Musculoskeletal muscle weakness 2013 Musculoskeletal No myalgias 12/02/2013 Dermatologic rash 12/02/2013 Neurologic No ataxia 12/02/2013 Neurologic No dizziness 12/02/2013 Psychiatric No anxiety 12/02/2013 Psychiatric depression 12/02/2013 Constitutional No recent illness 2013 Constitutional No chills 08/01/2013 Constitutional No fatigue 08/01/2013 Constitutional No fever 08/01/2013 Constitutional No insomnia 08/01/2013 Constitutional weight gain 08/01/2013 Constitutional obesity 08/01/2013 Eyes No blindness 08/01/2013 Eyes No vision change 08/01/2013 Ears/Nose/Throat/Neck No dental pain 01/2014 Ears/Nose/Throat/Neck No dizziness 2013 Ears/Nose/Throat/Neck No dysphagia 2013 Ears/Nose/Throat/Neck No headache 2013 Ears/Nose/Throat/Neck No hearing loss 01/2014 Ears/Nose/Throat/Neck No nasal allergies 08/01/2013 Ears/Nose/Throat/Neck No sore throat 01/2014 Ears/Nose/Throat/Neck No postnasal drip 08/01/2013 Ears/Nose/Throat/Neck No sinus congestion 08/01/2013 Cardiovascular dyspnea 08/01/2013 Cardiovascular No edema 08/01/2013 Cardiovascular exercise intolerance 08/01 Cardiovascular fatigue 08/01/2013 Cardiovascular hypertension 08/01/2013 Cardiovascular No near-syncope/dizziness 08/01/2013 Cardiovascular No palpitations 2013 Respiratory chest tightness 08/01/2013 Respiratory No cigarette smoking 2013 Respiratory No cough 08/01/2013 Respiratory No dyspnea 08/01/2013 Respiratory No pedal edema 08/01/2013 Respiratory No snoring 08/01/2013 Respiratory No wheezing 08/01/2013 Gastrointestinal No hemorrhoids 2013 Gastrointestinal No abdominal pain 2013 Gastrointestinal No constipation 2013 Gastrointestinal No diarrhea 08/01/2013 Gastrointestinal gastroesophageal reflux 08/01/2013 Gastrointestinal No melena 08/01/2013 Gastrointestinal No nausea 08/01/2013 Gastrointestinal No vomiting 08/01/2013 Genitourinary/Nephrology No dysuria 08/01 Genitourinary/Nephrology No nocturia 01/2014 Genitourinary/Nephrology No urinary incontinence 08/01/2013 Musculoskeletal stiffness 08/01/2013 Musculoskeletal No swelling 08/01/2013 Musculoskeletal arthralgia(s) 08/01/2013 Musculoskeletal muscle weakness 2013 Musculoskeletal No myalgias 08/01/2013 Dermatologic rash 08/01/2013 Neurologic No ataxia 08/01/2013 Neurologic No dizziness 08/01/2013 Psychiatric No anxiety 08/01/2013 Psychiatric depression 08/01/2013 Constitutional No recent illness 2013 Constitutional No chills 04/23/2013 Constitutional No fatigue 04/23/2013 Constitutional No fever 04/23/2013 Constitutional No insomnia 04/23/2013 Constitutional malaise 04/23/2013 Constitutional weight gain 04/23/2013 Constitutional obesity 04/23/2013 Eyes No blindness 04/23/2013 Eyes No vision change 04/23/2013 Ears/Nose/Throat/Neck No dental pain 05/2013 Ears/Nose/Throat/Neck No dizziness 2013 Ears/Nose/Throat/Neck No dysphagia 2013 Ears/Nose/Throat/Neck No headache 2013 Ears/Nose/Throat/Neck No hearing loss 05/2013 Ears/Nose/Throat/Neck No nasal allergies 04/23/2013 Ears/Nose/Throat/Neck No sore throat 05/2013 Ears/Nose/Throat/Neck No postnasal drip 04/23/2013 Ears/Nose/Throat/Neck No sinus congestion 04/23/2013 Cardiovascular chest pain/pressure 2013 Cardiovascular dyspnea 04/23/2013 Cardiovascular No edema 04/23/2013 Cardiovascular exercise intolerance 04/23 Cardiovascular fatigue 04/23/2013 Cardiovascular No near-syncope/dizziness 04/23/2013 Cardiovascular hypertension 04/23/2013 Cardiovascular No palpitations 2013 Respiratory chest tightness 04/23/2013 Respiratory No cigarette smoking 2013 Respiratory No cough 04/23/2013 Respiratory No dyspnea 04/23/2013 Respiratory No pedal edema 04/23/2013 Respiratory No snoring 04/23/2013 Respiratory No wheezing 04/23/2013 Gastrointestinal No hemorrhoids 2013 Gastrointestinal No abdominal pain 2013 Gastrointestinal No constipation 2013 Gastrointestinal No diarrhea 04/23/2013 Gastrointestinal No melena 04/23/2013 Gastrointestinal No nausea 04/23/2013 Gastrointestinal No vomiting 04/23/2013 Genitourinary/Nephrology No dysuria 04/23 Genitourinary/Nephrology No nocturia 05/2013 Genitourinary/Nephrology No urinary incontinence 04/23/2013 Musculoskeletal stiffness 04/23/2013 Musculoskeletal No swelling 04/23/2013 Musculoskeletal muscle weakness 2013 Musculoskeletal No myalgias 04/23/2013 Musculoskeletal arthralgia(s) 04/23/2013 Dermatologic rash 04/23/2013 Psychiatric No anxiety 04/23/2013 Psychiatric depression 04/23/2013 Neurologic No ataxia 04/23/2013 Neurologic No dizziness 04/23/2013 Gastrointestinal gastroesophageal reflux 04/23/2013 Physical Exam Exam Name System Name Item Name Status Result Effective Dates Notes Full Exam - Dermatology Constitutional general appearance Overall: well nourished 02/09/2017 None Full Exam - Dermatology Constitutional general appearance Overall: well developed 02/09/2017 None Full Exam - Dermatology Constitutional general appearance Overall: in no acute distress 02/09/2017 None Full Exam - Dermatology Eyes conjunctiva/ eyelids Overall: clear conjunctiva bilaterally 02/09/2017 None Full Exam - Dermatology Eyes conjunctiva/ eyelids Overall: clear corneas 02/09/2017 None Full Exam - Dermatology Eyes conjunctiva/ eyelids Overall: normal eyelids 02/09/2017 None Full Exam - Dermatology Ears/Nose/Throat lips/teeth/gingiva Overall: benign lips 02/09/2017 None Full Exam - Dermatology Ears/Nose/Throat oropharynx Overall: clear oral mucosa 02/09/2017 None Full Exam - Dermatology Respiratory respiratory effort/rhythm Overall: normal rate 02/09/2017 None Full Exam - Dermatology Respiratory respiratory effort/rhythm Overall: no retractions 02/09/2017 None Full Exam - Dermatology Respiratory auscultation Overall: breath sounds clear bilaterally 02/09/2017 None Full Exam - Dermatology Musculoskeletal head and neck Overall: head atraumatic 02/09/2017 None Full Exam - Dermatology Integument insp & palp - right lower extremity Lesion: patch 02/09/2017 None Full Exam - Dermatology Integument insp & palp - right lower extremity Location: on the ankle 02/09/2017 None Full Exam - Dermatology Integument insp & palp - right lower extremity Location: on the sánchez 02/09/2017 None Full Exam - Dermatology Integument insp & palp - right lower extremity Color: erythematous 02/09/2017 None Full Exam - Dermatology Psychiatric orientation Overall: oriented to person, place and time 02/09/2017 None Full Exam - Dermatology Psychiatric mood and affect Overall: normal mood and affect 02/09/2017 None Full Exam - Dermatology Cardiovascular peripheral vascular system Edema present: pitting 02/09/2017 None Full Exam - Dermatology Cardiovascular peripheral vascular system Edema present: of severity 1+ - 4+: 2-3+ 02/09/2017 None Full Exam - Dermatology Cardiovascular peripheral vascular system Edema present: bilateral 02/09/2017 None Full Exam - Dermatology Cardiovascular peripheral vascular system Edema present: to leg 02/09/2017 None Full Exam - ENT Constitutional general appearance Overall: well nourished 12/04/2015 None Full Exam - ENT Constitutional general appearance Overall: well developed 12/04/2015 None Full Exam - ENT Constitutional general appearance Overall: in no acute distress 12/04/2015 None Full Exam - ENT Ears/Nose/Throat lips/ teeth/gingiva Lips: erythema 12/04/2015 None Full Exam - ENT Ears/Nose/Throat lips/ teeth/gingiva Lips: chancre 12/04/2015 None Full Exam - ENT Ears/Nose/Throat oropharynx Overall: oral mucosa clear 12/04/2015 None Full Exam - ENT Respiratory inspection Overall: no retractions 12/04/2015 None Full Exam - ENT Respiratory inspection Overall: normal rate None Full Exam - ENT Neurologic mood and affect Overall: normal mood 12/04/2015 None Full Exam - ENT Neurologic mood and affect Overall: normal affect 12/04/2015 None Full Exam - ENT Neurologic orientation Overall: oriented to person, place and time 12/04/2015 None Full Exam - General 1994 Constitutional general appearance Development: well developed 07/21/2015 None Full Exam - General 1994 Constitutional general appearance Development: appears stated age 0507/21/2015 None Full Exam - General 1994 Constitutional general appearance Hygiene/Attention to Grooming: good hygiene 07/21/2015 None Full Exam - General 1994 Eyes conjunctiva /eyelids Overall: conjunctiva clear 07/21/2015 None Full Exam - General 1994 Eyes conjunctiva /eyelids Overall: cornea clear 07/21/2015 None Full Exam - General 1994 Eyes conjunctiva /eyelids Overall: eyelids normal 07/21/2015 None Full Exam - General 1994 Eyes pupils and irises Overall: pupils equal, round, reactive to light and accomodation 07/21/2015 None Full Exam - General 1994 Ears/Nose/Throat lips/teeth/gingiva Overall: benign lips 07/21/2015 None Full Exam - General 1994 Ears/Nose/Throat lips/teeth/gingiva Overall: normal dentition 07/21/2015 None Full Exam - General 1994 Ears/Nose/Throat oral cavity/pharynx/larynx Overall: oral mucosa clear 07/21/2015 None Full Exam - General 1994 Respiratory respiratory effort/rhythm Overall: no retractions 07/21/2015 None Full Exam - General 1994 Respiratory respiratory effort/rhythm Overall: normal rate 07/21/2015 None Full Exam - General 1994 Musculoskeletal upper extremity Palpation - shoulder: acromioclavicular joint tenderness 07/21/2015 None Full Exam - General 1994 Musculoskeletal spine, ribs and pelvis Spine: tender @ thoracic spine 07/21/2015 None Full Exam - General 1994 Musculoskeletal head and neck Overall: head atraumatic 07/21/2015 None Full Exam - General 1994 Neurologic cranial nerves Overall: crainial nerves 2 - 12 grossly intact 07/21/2015 None Full Exam - General 1994 Psychiatric orientation/consciousness Overall: oriented to person, place and time 07/21/2015 None Full Exam - General 1994 Psychiatric mood and affect Overall: normal mood and affect 07/21/2015 None Full Exam - General 1994 Musculoskeletal upper extremity Palpation - shoulder: glenohumeral joint tenderness 07/21/2015 None Full Exam - General 1994 Constitutional general appearance Development: well developed 07/17/2015 None Full Exam - General 1994 Constitutional general appearance Development: appears stated age 0507/17/2015 None Full Exam - General 1994 Constitutional general appearance Hygiene/Attention to Grooming: good hygiene 07/17/2015 None Full Exam - General 1994 Eyes conjunctiva /eyelids Overall: conjunctiva clear 07/17/2015 None Full Exam - General 1994 Eyes conjunctiva /eyelids Overall: cornea clear 07/17/2015 None Full Exam - General 1994 Eyes conjunctiva /eyelids Overall: eyelids normal 07/17/2015 None Full Exam - General 1994 Eyes pupils and irises Overall: pupils equal, round, reactive to light and accomodation 07/17/2015 None Full Exam - General 1994 Ears/Nose/Throat lips/teeth/gingiva Overall: benign lips 07/17/2015 None Full Exam - General 1994 Ears/Nose/Throat lips/teeth/gingiva Overall: normal dentition 07/17/2015 None Full Exam - General 1994 Respiratory respiratory effort/rhythm Overall: no retractions 07/17/2015 None Full Exam - General 1994 Respiratory respiratory effort/rhythm Overall: normal rate 07/17/2015 None Full Exam - General 1994 Musculoskeletal head and neck Overall: head atraumatic 07/17/2015 None Full Exam - General 1994 Neurologic cranial nerves Overall: crainial nerves 2 - 12 grossly intact 07/17/2015 None Full Exam - General 1994 Psychiatric orientation/consciousness Overall: oriented to person, place and time 07/17/2015 None Full Exam - General 1994 Psychiatric mood and affect Overall: normal mood and affect 07/17/2015 None Full Exam - General 1994 Ears/Nose/Throat oral cavity/pharynx/larynx Overall: oral mucosa clear 07/17/2015 None Full Exam - General 1994 Musculoskeletal upper extremity Palpation - shoulder: acromioclavicular joint tenderness 07/17/2015 None Full Exam - General 1994 Musculoskeletal spine, ribs and pelvis Spine: tender @ thoracic spine 07/17/2015 None Full Exam - General 1994 Constitutional general appearance Development: well developed 10/28/2014 None Full Exam - General 1994 Constitutional general appearance Development: appears stated age 0910/28/2014 None Full Exam - General 1994 Constitutional general appearance Hygiene/Attention to Grooming: good hygiene 10/28/2014 None Full Exam - General 1994 Eyes conjunctiva /eyelids Overall: conjunctiva clear 10/28/2014 None Full Exam - General 1994 Eyes conjunctiva /eyelids Overall: cornea clear 10/28/2014 None Full Exam - General 1994 Eyes conjunctiva /eyelids Overall: eyelids normal 10/28/2014 None Full Exam - General 1994 Eyes pupils and irises Overall: pupils equal, round, reactive to light and accomodation 10/28/2014 None Full Exam - General 1994 Ears/Nose/Throat lips/teeth/gingiva Overall: benign lips 10/28/2014 None Full Exam - General 1994 Ears/Nose/Throat lips/teeth/gingiva Overall: normal dentition 10/28/2014 None Full Exam - General 1994 Ears/Nose/Throat oral cavity/pharynx/larynx Overall: oral mucosa clear 10/28/2014 None Full Exam - General 1994 Ears/Nose/Throat oral cavity/pharynx/larynx Overall: oropharyngeal mucosa clear 10/28/2014 None Full Exam - General 1994 Ears/Nose/Throat oral cavity/pharynx/larynx Overall: hypopharynx benign 10/28/2014 None Full Exam - General 1994 Ears/Nose/Throat oral cavity/pharynx/larynx Overall: no masses 10/28/2014 None Full Exam - General 1994 Respiratory auscultation Overall: breath sounds clear bilaterally 10/28/2014 None Full Exam - General 1994 Respiratory respiratory effort/rhythm Overall: no retractions 10/28/2014 None Full Exam - General 1994 Respiratory respiratory effort/rhythm Overall: normal rate 10/28/2014 None Full Exam - General 1994 Cardiovascular extremities Overall: no clubbing 10/28/2014 None Full Exam - General 1994 Cardiovascular auscultation of heart Overall: regular rate 10/28/2014 None Full Exam - General 1994 Cardiovascular auscultation of heart Overall: normal heart sounds 10/28/2014 None Full Exam - General 1994 Cardiovascular auscultation of heart Systolic murmur: medium pitch 10/28/2014 None Full Exam - General 1994 Cardiovascular auscultation of heart Systolic murmur grade: III/ 10/28/2014 None Full Exam - General 1994 Lymphatic neck nodes Overall: anterior cervical chain benign 10/28/2014 None Full Exam - General 1994 Lymphatic neck nodes Overall: posterior cervical chain benign 10/28/2014 None Full Exam - General 1994 Musculoskeletal spine, ribs and pelvis Posture: kyphosis 10/28/2014 None Full Exam - General 1994 Musculoskeletal head and neck Overall: head atraumatic 10/28/2014 None Full Exam - General 1994 Musculoskeletal head and neck Overall: cervical spine benign 10/28/2014 None Full Exam - General 1994 Neurologic deep tendon reflexes Overall: deep tendon reflexes intact 10/28/2014 None Full Exam - General 1994 Neurologic cranial nerves Overall: crainial nerves 2 - 12 grossly intact 10/28/2014 None Full Exam - General 1994 Psychiatric orientation/consciousness Overall: oriented to person, place and time 10/28/2014 None Full Exam - General 1994 Psychiatric mood and affect Overall: normal mood and affect 10/28/2014 None Full Exam - General 1994 Constitutional general appearance Development: well developed 06/23/2014 None Full Exam - General 1994 Constitutional general appearance Development: appears stated age 0506/23/2014 None Full Exam - General 1994 Constitutional general appearance Hygiene/Attention to Grooming: good hygiene 06/23/2014 None Full Exam - General 1994 Eyes conjunctiva /eyelids Overall: conjunctiva clear 06/23/2014 None Full Exam - General 1994 Eyes conjunctiva /eyelids Overall: cornea clear 06/23/2014 None Full Exam - General 1994 Eyes conjunctiva /eyelids Overall: eyelids normal 06/23/2014 None Full Exam - General 1994 Eyes pupils and irises Overall: pupils equal, round, reactive to light and accomodation 06/23/2014 None Full Exam - General 1994 Ears/Nose/Throat lips/teeth/gingiva Overall: benign lips 06/23/2014 None Full Exam - General 1994 Ears/Nose/Throat lips/teeth/gingiva Overall: normal dentition 06/23/2014 None Full Exam - General 1994 Ears/Nose/Throat oral cavity/pharynx/larynx Overall: oral mucosa clear 06/23/2014 None Full Exam - General 1994 Ears/Nose/Throat oral cavity/pharynx/larynx Overall: oropharyngeal mucosa clear 06/23/2014 None Full Exam - General 1994 Ears/Nose/Throat oral cavity/pharynx/larynx Overall: hypopharynx benign 06/23/2014 None Full Exam - General 1994 Ears/Nose/Throat oral cavity/pharynx/larynx Overall: no masses 06/23/2014 None Full Exam - General 1994 Respiratory auscultation Overall: breath sounds clear bilaterally 06/23/2014 None Full Exam - General 1994 Respiratory respiratory effort/rhythm Overall: no retractions 06/23/2014 None Full Exam - General 1994 Respiratory respiratory effort/rhythm Overall: normal rate 06/23/2014 None Full Exam - General 1994 Cardiovascular extremities Overall: no clubbing 06/23/2014 None Full Exam - General 1994 Cardiovascular auscultation of heart Overall: regular rate 06/23/2014 None Full Exam - General 1994 Cardiovascular auscultation of heart Overall: normal heart sounds 06/23/2014 None Full Exam - General 1994 Cardiovascular auscultation of heart Systolic murmur: medium pitch 06/23/2014 None Full Exam - General 1994 Cardiovascular auscultation of heart Systolic murmur grade: III/ 06/23/2014 None Full Exam - General 1994 Lymphatic neck nodes Overall: anterior cervical chain benign 06/23/2014 None Full Exam - General 1994 Lymphatic neck nodes Overall: posterior cervical chain benign 06/23/2014 None Full Exam - General 1994 Musculoskeletal spine, ribs and pelvis Posture: kyphosis 06/23/2014 None Full Exam - General 1994 Musculoskeletal head and neck Overall: head atraumatic 06/23/2014 None Full Exam - General 1994 Musculoskeletal head and neck Overall: cervical spine benign 06/23/2014 None Full Exam - General 1994 Neurologic deep tendon reflexes Overall: deep tendon reflexes intact 06/23/2014 None Full Exam - General 1994 Neurologic cranial nerves Overall: crainial nerves 2 - 12 grossly intact 06/23/2014 None Full Exam - General 1994 Psychiatric orientation/consciousness Overall: oriented to person, place and time 06/23/2014 None Full Exam - General 1994 Psychiatric mood and affect Overall: normal mood and affect 06/23/2014 None Full Exam - General 1994 Musculoskeletal upper extremity Palpation - shoulder: tenderness @ bicipital groove 06/23/2014 None Full Exam - General 1994 Abdomen abdominal exam Overall: no tenderness 06/23/2014 None Full Exam - General 1994 Abdomen abdominal exam Overall: normal bowel sounds 06/23/2014 None Full Exam - General 1994 Constitutional general appearance Development: well developed 04/21/2014 None Full Exam - General 1994 Constitutional general appearance Development: appears stated age 0304/21/2014 None Full Exam - General 1994 Constitutional general appearance Hygiene/Attention to Grooming: good hygiene 04/21/2014 None Full Exam - General 1994 Eyes conjunctiva /eyelids Overall: conjunctiva clear 04/21/2014 None Full Exam - General 1994 Eyes conjunctiva /eyelids Overall: cornea clear 04/21/2014 None Full Exam - General 1994 Eyes conjunctiva /eyelids Overall: eyelids normal 04/21/2014 None Full Exam - General 1994 Eyes pupils and irises Overall: pupils equal, round, reactive to light and accomodation 04/21/2014 None Full Exam - General 1994 Ears/Nose/Throat lips/teeth/gingiva Overall: benign lips 04/21/2014 None Full Exam - General 1994 Ears/Nose/Throat lips/teeth/gingiva Overall: normal dentition 04/21/2014 None Full Exam - General 1994 Ears/Nose/Throat oral cavity/pharynx/larynx Overall: oral mucosa clear 04/21/2014 None Full Exam - General 1994 Ears/Nose/Throat oral cavity/pharynx/larynx Overall: oropharyngeal mucosa clear 04/21/2014 None Full Exam - General 1994 Ears/Nose/Throat oral cavity/pharynx/larynx Overall: hypopharynx benign 04/21/2014 None Full Exam - General 1994 Ears/Nose/Throat oral cavity/pharynx/larynx Overall: no masses 04/21/2014 None Full Exam - General 1994 Respiratory auscultation Overall: breath sounds clear bilaterally 04/21/2014 None Full Exam - General 1994 Respiratory respiratory effort/rhythm Overall: no retractions 04/21/2014 None Full Exam - General 1994 Respiratory respiratory effort/rhythm Overall: normal rate 04/21/2014 None Full Exam - General 1994 Cardiovascular extremities Overall: no clubbing 04/21/2014 None Full Exam - General 1994 Cardiovascular auscultation of heart Overall: regular rate 04/21/2014 None Full Exam - General 1994 Cardiovascular auscultation of heart Overall: normal heart sounds 04/21/2014 None Full Exam - General 1995 Cardiovascular auscultation of heart Systolic murmur: medium pitch 04/21/2014 None Full Exam - General 1994 Cardiovascular auscultation of heart Systolic murmur grade: III/ 04/21/2014 None Full Exam - General 1995 Lymphatic neck nodes Overall: anterior cervical chain benign 04/21/2014 None Full Exam - General 1995 Lymphatic neck nodes Overall: posterior cervical chain benign 04/21/2014 None Full Exam - General 1994 Musculoskeletal spine, ribs and pelvis Posture: kyphosis 04/21/2014 None Full Exam - General 1995 Musculoskeletal head and neck Overall: head atraumatic 04/21/2014 None Full Exam - General 1995 Musculoskeletal head and neck Overall: cervical spine benign 04/21/2014 None Full Exam - General 1994 Neurologic deep tendon reflexes Overall: deep tendon reflexes intact 04/21/2014 None Full Exam - General 1994 Neurologic cranial nerves Overall: crainial nerves 2 - 12 grossly intact 04/21/2014 None Full Exam - General 1994 Psychiatric orientation/consciousness Overall: oriented to person, place and time 04/21/2014 None Full Exam - General 1994 Psychiatric mood and affect Overall: normal mood and affect 04/21/2014 None Full Exam - General 1994 Constitutional general appearance Development: well developed 12/23/2013 None Full Exam - General 1994 Constitutional general appearance Development: appears stated age 1112/23/2013 None Full Exam - General 1994 Constitutional general appearance Hygiene/Attention to Grooming: good hygiene 12/23/2013 None Full Exam - General 1994 Eyes conjunctiva /eyelids Overall: conjunctiva clear 12/23/2013 None Full Exam - General 1994 Eyes conjunctiva /eyelids Overall: cornea clear 12/23/2013 None Full Exam - General 1994 Eyes conjunctiva /eyelids Overall: eyelids normal 12/23/2013 None Full Exam - General 1994 Eyes pupils and irises Overall: pupils equal, round, reactive to light and accomodation 12/23/2013 None Full Exam - General 1994 Ears/Nose/Throat lips/teeth/gingiva Overall: benign lips 12/23/2013 None Full Exam - General 1994 Ears/Nose/Throat lips/teeth/gingiva Overall: normal dentition 12/23/2013 None Full Exam - General 1994 Ears/Nose/Throat oral cavity/pharynx/larynx Overall: oral mucosa clear 12/23/2013 None Full Exam - General 1994 Ears/Nose/Throat oral cavity/pharynx/larynx Overall: oropharyngeal mucosa clear 12/23/2013 None Full Exam - General 1994 Ears/Nose/Throat oral cavity/pharynx/larynx Overall: hypopharynx benign 12/23/2013 None Full Exam - General 1995 Ears/Nose/Throat oral cavity/pharynx/larynx Overall: no masses 12/23/2013 None Full Exam - General 1994 Respiratory auscultation Overall: breath sounds clear bilaterally 12/23/2013 None Full Exam - General 1994 Respiratory respiratory effort/rhythm Overall: no retractions 12/23/2013 None Full Exam - General 1994 Respiratory respiratory effort/rhythm Overall: normal rate 12/23/2013 None Full Exam - General 1994 Cardiovascular extremities Overall: no clubbing 12/23/2013 None Full Exam - General 1994 Cardiovascular auscultation of heart Overall: regular rate 12/23/2013 None Full Exam - General 1994 Cardiovascular auscultation of heart Overall: normal heart sounds 12/23/2013 None Full Exam - General 1994 Cardiovascular auscultation of heart Systolic murmur: medium pitch 12/23/2013 None Full Exam - General 1994 Cardiovascular auscultation of heart Systolic murmur grade: III/ 12/23/2013 None Full Exam - General 1994 Lymphatic neck nodes Overall: anterior cervical chain benign 12/23/2013 None Full Exam - General 1994 Lymphatic neck nodes Overall: posterior cervical chain benign 12/23/2013 None Full Exam - General 1994 Musculoskeletal spine, ribs and pelvis Posture: kyphosis 12/23/2013 None Full Exam - General 1994 Musculoskeletal head and neck Overall: head atraumatic 12/23/2013 None Full Exam - General 1994 Musculoskeletal head and neck Overall: cervical spine benign 12/23/2013 None Full Exam - General 1994 Neurologic deep tendon reflexes Overall: deep tendon reflexes intact 12/23/2013 None Full Exam - General 1994 Neurologic cranial nerves Overall: crainial nerves 2 - 12 grossly intact 12/23/2013 None Full Exam - General 1994 Psychiatric orientation/consciousness Overall: oriented to person, place and time 12/23/2013 None Full Exam - General 1994 Psychiatric mood and affect Overall: normal mood and affect 12/23/2013 None Full Exam - General 1994 Constitutional general appearance Development: well developed 12/02/2013 None Full Exam - General 1994 Constitutional general appearance Development: appears stated age 1012/02/2013 None Full Exam - General 1994 Constitutional general appearance Hygiene/Attention to Grooming: good hygiene 12/02/2013 None Full Exam - General 1995 Eyes conjunctiva /eyelids Overall: conjunctiva clear 12/02/2013 None Full Exam - General 1994 Eyes conjunctiva /eyelids Overall: cornea clear 12/02/2013 None Full Exam - General 1994 Eyes conjunctiva /eyelids Overall: eyelids normal 12/02/2013 None Full Exam - General 1994 Eyes pupils and irises Overall: pupils equal, round, reactive to light and accomodation 12/02/2013 None Full Exam - General 1995 Ears/Nose/Throat lips/teeth/gingiva Overall: benign lips 12/02/2013 None Full Exam - General 1995 Ears/Nose/Throat lips/teeth/gingiva Overall: normal dentition 12/02/2013 None Full Exam - General 1995 Ears/Nose/Throat oral cavity/pharynx/larynx Overall: oral mucosa clear 12/02/2013 None Full Exam - General 1995 Ears/Nose/Throat oral cavity/pharynx/larynx Overall: oropharyngeal mucosa clear 12/02/2013 None Full Exam - General 1994 Ears/Nose/Throat oral cavity/pharynx/larynx Overall: hypopharynx benign 12/02/2013 None Full Exam - General 1995 Ears/Nose/Throat oral cavity/pharynx/larynx Overall: no masses 12/02/2013 None Full Exam - General 1994 Respiratory auscultation Overall: breath sounds clear bilaterally 12/02/2013 None Full Exam - General 1994 Respiratory respiratory effort/rhythm Overall: no retractions 12/02/2013 None Full Exam - General 1994 Respiratory respiratory effort/rhythm Overall: normal rate 12/02/2013 None Full Exam - General 1994 Cardiovascular extremities Overall: no clubbing 12/02/2013 None Full Exam - General 1994 Cardiovascular auscultation of heart Overall: regular rate 12/02/2013 None Full Exam - General 1994 Cardiovascular auscultation of heart Overall: normal heart sounds 12/02/2013 None Full Exam - General 1994 Cardiovascular auscultation of heart Systolic murmur: medium pitch 12/02/2013 None Full Exam - General 1994 Cardiovascular auscultation of heart Systolic murmur grade: III/ 12/02/2013 None Full Exam - General 1994 Lymphatic neck nodes Overall: anterior cervical chain benign 12/02/2013 None Full Exam - General 1994 Lymphatic neck nodes Overall: posterior cervical chain benign 12/02/2013 None Full Exam - General 1994 Musculoskeletal spine, ribs and pelvis Posture: kyphosis 12/02/2013 None Full Exam - General 1994 Musculoskeletal head and neck Overall: head atraumatic 12/02/2013 None Full Exam - General 1994 Musculoskeletal head and neck Overall: cervical spine benign 12/02/2013 None Full Exam - General 1994 Neurologic deep tendon reflexes Overall: deep tendon reflexes intact 12/02/2013 None Full Exam - General 1994 Neurologic cranial nerves Overall: crainial nerves 2 - 12 grossly intact 12/02/2013 None Full Exam - General 1994 Psychiatric orientation/consciousness Overall: oriented to person, place and time 12/02/2013 None Full Exam - General 1994 Psychiatric mood and affect Overall: normal mood and affect 12/02/2013 None Full Exam - General 1994 Constitutional general appearance Development: well developed 08/01/2013 None Full Exam - General 1994 Constitutional general appearance Development: appears stated age 0608/01/2013 None Full Exam - General 1994 Constitutional general appearance Hygiene/Attention to Grooming: good hygiene 08/01/2013 None Full Exam - General 1994 Eyes conjunctiva /eyelids Overall: conjunctiva clear 08/01/2013 None Full Exam - General 1994 Eyes conjunctiva /eyelids Overall: cornea clear 08/01/2013 None Full Exam - General 1994 Eyes conjunctiva /eyelids Overall: eyelids normal 08/01/2013 None Full Exam - General 1994 Eyes pupils and irises Overall: pupils equal, round, reactive to light and accomodation 08/01/2013 None Full Exam - General 1994 Ears/Nose/Throat otoscopic exam Overall: external auditory canals clear 08/01/2013 None Full Exam - General 1994 Ears/Nose/Throat otoscopic exam Overall: tympanic membranes clear 08/01/2013 None Full Exam - General 1994 Ears/Nose/Throat lips/teeth/gingiva Overall: benign lips 08/01/2013 None Full Exam - General 1994 Ears/Nose/Throat lips/teeth/gingiva Overall: normal dentition 08/01/2013 None Full Exam - General 1994 Ears/Nose/Throat oral cavity/pharynx/larynx Overall: oral mucosa clear 08/01/2013 None Full Exam - General 1994 Ears/Nose/Throat oral cavity/pharynx/larynx Overall: oropharyngeal mucosa clear 08/01/2013 None Full Exam - General 1994 Ears/Nose/Throat oral cavity/pharynx/larynx Overall: hypopharynx benign 08/01/2013 None Full Exam - General 1994 Ears/Nose/Throat oral cavity/pharynx/larynx Overall: no masses 08/01/2013 None Full Exam - General 1994 Respiratory auscultation Overall: breath sounds clear bilaterally 08/01/2013 None Full Exam - General 1994 Respiratory respiratory effort/rhythm Overall: no retractions 08/01/2013 None Full Exam - General 1994 Respiratory respiratory effort/rhythm Overall: normal rate 08/01/2013 None Full Exam - General 1994 Cardiovascular extremities Overall: no clubbing 08/01/2013 None Full Exam - General 1994 Cardiovascular auscultation of heart Overall: regular rate 08/01/2013 None Full Exam - General 1994 Cardiovascular auscultation of heart Overall: normal heart sounds 08/01/2013 None Full Exam - General 1994 Cardiovascular auscultation of heart Systolic murmur: medium pitch 08/01/2013 None Full Exam - General 1994 Cardiovascular auscultation of heart Systolic murmur grade: III/ 08/01/2013 None Full Exam - General 1994 Abdomen abdominal exam Overall: no tenderness 08/01/2013 None Full Exam - General 1994 Abdomen abdominal exam Overall: normal bowel sounds 08/01/2013 None Full Exam - General 1994 Lymphatic neck nodes Overall: anterior cervical chain benign 08/01/2013 None Full Exam - General 1994 Lymphatic neck nodes Overall: posterior cervical chain benign 08/01/2013 None Full Exam - General 1994 Musculoskeletal lower extremity Inspection - foot: pes planus 08/01/2013 None Full Exam - General 1994 Musculoskeletal lower extremity Inspection - foot: claw toes 08/01/2013 None Full Exam - General 1994 Musculoskeletal spine, ribs and pelvis Posture: kyphosis 08/01/2013 None Full Exam - General 1994 Musculoskeletal head and neck Overall: head atraumatic 08/01/2013 None Full Exam - General 1994 Musculoskeletal head and neck Overall: cervical spine benign 08/01/2013 None Full Exam - General 1994 Integument inspection of skin Pigmentation: hemosideran pigment changes 08/01/2013 right lower leg greater than right lower legs Full Exam - General 1994 Neurologic deep tendon reflexes Overall: deep tendon reflexes intact 08/01/2013 None Full Exam - General 1994 Neurologic cranial nerves Overall: crainial nerves 2 - 12 grossly intact 08/01/2013 None Full Exam - General 1994 Psychiatric orientation/consciousness Overall: oriented to person, place and time 08/01/2013 None Full Exam - General 1994 Psychiatric mood and affect Overall: normal mood and affect 08/01/2013 None Full Exam - General 1994 Constitutional general appearance Development: appears stated age 0304/23/2013 None Full Exam - General 1994 Constitutional general appearance Development: well developed 04/23/2013 None Full Exam - General 1994 Constitutional general appearance Hygiene/Attention to Grooming: good hygiene 04/23/2013 None Full Exam - General 1994 Eyes conjunctiva /eyelids Overall: conjunctiva clear 04/23/2013 None Full Exam - General 1994 Eyes conjunctiva /eyelids Overall: cornea clear 04/23/2013 None Full Exam - General 1994 Eyes conjunctiva /eyelids Overall: eyelids normal 04/23/2013 None Full Exam - General 1994 Eyes pupils and irises Overall: pupils equal, round, reactive to light and accomodation 04/23/2013 None Full Exam - General 1994 Ears/Nose/Throat otoscopic exam Overall: external auditory canals clear 04/23/2013 None Full Exam - General 1994 Ears/Nose/Throat otoscopic exam Overall: tympanic membranes clear 04/23/2013 None Full Exam - General 1994 Ears/Nose/Throat lips/teeth/gingiva Overall: benign lips 04/23/2013 None Full Exam - General 1995 Ears/Nose/Throat lips/teeth/gingiva Overall: normal dentition 04/23/2013 None Full Exam - General 1994 Ears/Nose/Throat oral cavity/pharynx/larynx Overall: hypopharynx benign 04/23/2013 None Full Exam - General 1994 Ears/Nose/Throat oral cavity/pharynx/larynx Overall: no masses 04/23/2013 None Full Exam - General 1994 Ears/Nose/Throat oral cavity/pharynx/larynx Overall: oral mucosa clear 04/23/2013 None Full Exam - General 1995 Ears/Nose/Throat oral cavity/pharynx/larynx Overall: oropharyngeal mucosa clear 04/23/2013 None Full Exam - General 1994 Respiratory auscultation Overall: breath sounds clear bilaterally 04/23/2013 None Full Exam - General 1994 Respiratory respiratory effort/rhythm Overall: no retractions 04/23/2013 None Full Exam - General 1994 Respiratory respiratory effort/rhythm Overall: normal rate 04/23/2013 None Full Exam - General 1994 Cardiovascular extremities Overall: no clubbing 04/23/2013 None Full Exam - General 1994 Cardiovascular auscultation of heart Overall: normal heart sounds 04/23/2013 None Full Exam - General 1994 Cardiovascular auscultation of heart Overall: regular rate 04/23/2013 None Full Exam - General 1994 Abdomen abdominal exam Overall: no tenderness 04/23/2013 None Full Exam - General 1994 Abdomen abdominal exam Overall: normal bowel sounds 04/23/2013 None Full Exam - General 1994 Neurologic deep tendon reflexes Overall: deep tendon reflexes intact 04/23/2013 None Full Exam - General 1994 Neurologic cranial nerves Overall: crainial nerves 2 - 12 grossly intact 04/23/2013 None Full Exam - General 1994 Psychiatric orientation/consciousness Overall: oriented to person, place and time 04/23/2013 None Full Exam - General 1994 Psychiatric mood and affect Overall: normal mood and affect 04/23/2013 None Full Exam - General 1994 Lymphatic neck nodes Overall: anterior cervical chain benign 04/23/2013 None Full Exam - General 1994 Lymphatic neck nodes Overall: posterior cervical chain benign 04/23/2013 None Full Exam - General 1994 Cardiovascular auscultation of heart Systolic murmur: medium pitch 04/23/2013 None Full Exam - General 1994 Cardiovascular auscultation of heart Systolic murmur grade: III/ 04/23/2013 None Full Exam - General 1994 Musculoskeletal head and neck Overall: cervical spine benign 04/23/2013 None Full Exam - General 1994 Musculoskeletal head and neck Overall: head atraumatic 04/23/2013 None Full Exam - General 1994 Musculoskeletal spine, ribs and pelvis Posture: mild kyphosis 04/23/2013 None Full Exam - General 1994 Musculoskeletal lower extremity Inspection - foot: claw toes 04/23/2013 None Full Exam - General 1994 Musculoskeletal lower extremity Inspection - foot: pes planus 04/23/2013 None Full Exam - General 1994 Integument inspection of skin Pigmentation: hemosideran pigment changes 04/23/2013 right lower leg greater than right lower legs Procedures Procedure Codes Date ROUTINE VENIPUNCTURE CPT-4: 78421 12/02/2013 Vital Signs Date Vital 02/09/2017 Blood Pressure 1: 148/78 Code : 8480-6 BMI: 32.6 Code : 18748-7 Heart Rate 1 : 70 bpm Height: 5'6" SpO2: 98% Weight: 202 lbs 12/04/2015 Blood Pressure 1: 150/86 Code : 8480-6 BMI: 32.6 Code : 57919-9 Heart Rate 1 : 61 bpm Height: 5'6" SpO2: 94% Weight: 202 lbs 07/21/2015 Blood Pressure 1: 150/88 Code : 8480-6 BMI: 32.0 Code : 33838-0 Heart Rate 1 : 72 bpm Height: 5'6" SpO2: 94% Weight: 198 lbs 07/17/2015 Blood Pressure 1: 178/88 Code : 8480-6 Blood Pressure 1: 142/80 Code: 8480-6 BMI: 32.0 Code: 23189-6 Heart Rate 1: 58 bpm Height: 5'6" SpO2: 97% Weight: 198 lbs 10/28/2014 Blood Pressure 1: 126/70 Code : 8480-6 BMI: 30.5 Code : 87277-4 Heart Rate 1 : 58 bpm Height: 5'6" SpO2: 95% Weight: 189 lbs 06/23/2014 Blood Pressure 1: 136/88 Code : 8480-6 BMI: 30.9 Code : 78819-7 Heart Rate 1 : 80 bpm Height: 5'4" Weight: 180 lbs 04/21/2014 Blood Pressure 1: 130/70 Code : 8480-6 BMI: 31.6 Code : 40851-6 Heart Rate 1 : 60 bpm Height: 5'4" Weight: 184 lbs 12/23/2013 Blood Pressure 1: 140/72 Code : 8480-6 BMI: 34.0 Code : 52746-4 Heart Rate 1 : 56 bpm Height: 5'4" Weight: 198 lbs 12/02/2013 Blood Pressure 1: 158/90 Code : 8480-6 BMI: 33.8 Code : 16776-3 Heart Rate 1 : 61 bpm Height: 5'4" SpO2: 95% Weight: 197 lbs 08/01/2013 Blood Pressure 1: 180/92 Code : 8480-6 BMI: 34.0 Code : 90739-5 Heart Rate 1 : 52 bpm Height: 5'4" Weight: 198 lbs 04/23/2013 Blood Pressure 1: 104/70 Code : 8480-6 BMI: 33.6 Code : 17427-1 Heart Rate 1 : 84 bpm Height: 5'4" Weight: 196 lbs Functional Status No Functional Status data History of Present Illness Symptom Name Status Result Effective Date Notes rash Location-Extremities on the left ankle 02/09/2017 None rash Location-Extremities on the right ankle 02/09/2017 None rash Quality acute None rash Quality new 02/09 None rash Color erythematous 02/09/2017 None rash Pertinent Findings itching 02/09/2017 None rash Pertinent Findings Denies fever 02/09/2017 None oral pain Location on the lower lip 12/04/2015 None oral pain Quality aching 12/04/2015 None oral pain Quality constant 12/04/2015 None oral pain Quality burning 12/04/2015 None oral pain Quality throbbing 12/04/2015 None oral pain Onset and Resolution sudden in onset 12/04/2015 None oral pain Onset of Symptom 1 weeks ago 12/04/2015 None oral pain Frequency of Episodes daily 12/04/2015 None shoulder pain Location on the left shoulder 07/21/2015 None shoulder pain Location scapular border, left shoulder 07/21/2015 None shoulder pain Quality aching 07/21/2015 None shoulder pain Quality constant 07/21/2015 None shoulder pain Quality stabbing 07/21/2015 None shoulder pain Quality throbbing 07/21/2015 None shoulder pain Onset and Resolution sudden in onset 07/21/2015 None shoulder pain Frequency of Episodes daily 07/21/2015 None shoulder pain Location on the left shoulder 07/17/2015 None shoulder pain Location scapular border, left shoulder 07/17/2015 None shoulder pain Quality aching 07/17/2015 None shoulder pain Quality stabbing 07/17/2015 None shoulder pain Quality throbbing 07/17/2015 None shoulder pain Quality constant 07/17/2015 None shoulder pain Onset and Resolution sudden in onset 07/17/2015 None shoulder pain Onset of Symptom 4 days ago 07/17/2015 None shoulder pain Frequency of Episodes daily 07/17/2015 None hypertension Quality chronic 10/28/2014 None hypertension Onset and Resolution ongoing 10/28/[address] perry who did a heart cath. was told it was fine. but trig was high and was started on a statin hypertension Onset of Symptom during adulthood 10/28/2014 None hypertension Blood Pressure Values not checking blood pressure at home 10/28/2014 None hypertension Severity mild 10/28/2014 None hypertension Triggers no known associated factors 10/28/2014 None hypertension Alleviating Factors medication 10/28/2014 None hypertension Pertinent Findings decreased energy 10/28/2014 always hypertension Pertinent Findings Denies dizziness 10/28/2014 None hypertension Pertinent Findings dyspnea 10/28/2014 None hypertension Pertinent Findings Denies edema 10/28/2014 None hypertension Pertinent Findings vomiting 10/28/2014 this am after cold water shortness of breath Quality chronic 10/28/2014 None shortness of breath Onset of Symptom during adulthood 10/28/2014 None shortness of breath Alleviating Factors inhalers / nebulizer 10/28/2014 None hip pain Location on the right 06/23/2014 None hip pain Onset of Symptom 2 months ago 06/23/2014 None hip pain Quality constant 06/23/2014 burning sensation back pain Location in the left middle back area 06/23/2014 None back pain Location in the right middle back area 06/23/2014 None back pain Quality aching 06/23/2014 None back pain Onset of Symptom 2 weeks ago 06/23/2014 None back pain Frequency of Episodes constant 06/23/2014 None shoulder pain Location on the left shoulder 06/23/2014 None shoulder pain Onset of Symptom 2 years ago 06/23/2014 fell shoulder pain Frequency of Episodes increasing 06/23/2014 None shoulder pain Pertinent Findings Denies limited range of motion 06/23/2014 None hand pain Location in the thumb 06/23/2014 None hand pain Location on the left 06/23/2014 None hand pain Onset of Symptom _ months ago 06/23/2014 None hypertension Quality chronic 04/21/2014 None hypertension Onset and Resolution ongoing 04/21/2014 None hypertension Onset of Symptom during adulthood 04/21/2014 None hypertension Blood Pressure Values not checking blood pressure at home 04/21/2014 None hypertension Severity mild 04/21/2014 None hypertension Triggers no known associated factors 04/21/2014 None hypertension Alleviating Factors medication 04/21/2014 None hypertension Pertinent Findings decreased energy 04/21/2014 always hypertension Pertinent Findings Denies dizziness 04/21/2014 None hypertension Pertinent Findings dyspnea 04/21/2014 None hypertension Pertinent Findings Denies edema 04/21/2014 None hypertension Pertinent Findings vomiting 04/21/2014 this am after cold water hypertension Quality chronic 12/23/2013 None hypertension Onset and Resolution ongoing 12/23/2013 None hypertension Onset of Symptom during adulthood 12/23/2013 None hypertension Blood Pressure Values not checking blood pressure at home 12/23/2013 None hypertension Severity mild 12/23/2013 None hypertension Triggers no known associated factors 12/23/2013 None hypertension Alleviating Factors medication 12/23/2013 None hypertension Pertinent Findings decreased energy 12/23/2013 always hypertension Pertinent Findings Denies dizziness 12/23/2013 None hypertension Pertinent Findings dyspnea 12/23/2013 None hypertension Pertinent Findings Denies edema 12/23/2013 None hypertension Pertinent Findings vomiting 12/23/2013 this am after cold water shortness of breath Quality chronic 12/23/2013 None shortness of breath Onset and Resolution ongoing 12/23/2013 None shortness of breath Onset of Symptom during adulthood 12/23/2013 None shortness of breath Alleviating Factors inhalers / nebulizer 12/23/2013 None cough Onset of Symptom 2 days ago 12/23/2013 None cough Pertinent Findings dyspnea 12/23/2013 None hypertension Quality chronic 12/02/2013 None hypertension Onset and Resolution ongoing 12/02/[address] perry who did a heart cath. was told it was fine. but trig was high and was started on a statin hypertension Onset of Symptom during adulthood 12/02/2013 None hypertension Severity mild 12/02/2013 None hypertension Triggers no known associated factors 12/02/2013 None hypertension Alleviating Factors medication 12/02/2013 None shortness of breath Quality chronic 12/02/2013 None shortness of breath Onset and Resolution ongoing 12/02/2013 states she feels better when the sun comes out shortness of breath Onset of Symptom during adulthood 12/02/2013 None shortness of breath Alleviating Factors inhalers / nebulizer 12/02/2013 None hypertension Blood Pressure Values not checking blood pressure at home 12/02/2013 None hypertension Pertinent Findings Denies dizziness 12/02/2013 None hypertension Pertinent Findings dyspnea 12/02/2013 None hypertension Pertinent Findings Denies edema 12/02/2013 None hypertension Pertinent Findings decreased energy 12/02/2013 always hypertension Pertinent Findings vomiting 12/02/2013 this am after cold water hypertension Quality chronic 08/01/2013 None hypertension Onset and Resolution ongoing 08/01/[address] perry who did a heart cath. was told it was fine. but trig was high and was started on a statin shortness of breath Onset and Resolution ongoing 08/01/2013 states she feels better when the sun comes out hypertension Onset of Symptom during adulthood 08/01/2013 None hypertension Severity mild 08/01/2013 None shortness of breath Quality chronic 08/01/2013 None hypertension Triggers no known associated factors 08/01/2013 None hypertension Alleviating Factors medication 08/01/2013 None shortness of breath Onset of Symptom during adulthood 08/01/2013 None shortness of breath Alleviating Factors inhalers / nebulizer 08/01/2013 None weight gain/obesity Location in the truncal area 04/23/2013 None weight gain/obesity Quality acute 04/23/2013 None weight gain/obesity Onset and Resolution gradual in onset 04/23/2013 None weight gain/obesity Weight Status has gained _ pounds in _weeks 04/23/2013 gained 15 pounds in past year rash Location-Major on the legs 04/23/2013 None rash Quality chronic 04/23/2013 None rash Pertinent Findings tenderness 04/23/2013 None rash Pertinent Findings itching 04/23/2013 None hair loss Quality chronic 04/23/2013 None hair loss Severity moderate 04/23/2013 None hair loss Onset of Symptom 6 months ago 04/23/2013 None hair loss Onset and Resolution gradual in onset 04/23/2013 with worsening hair loss - now having eyelash and eyebrow loss, as well as globally she has noticed some thinning of hair in axilla, and pubic hair. rash Color erythematous 04/23/2013 None rash Onset and Resolution ongoing 04/23/2013 None rash Severity moderate 04/23/2013 None rash Prior Treatments previously treated 04/23/2013 None Advance Directives No Advance Directive data Encounters Encounter Performer Location Codes Date EST. PATIENT, LEVEL III Diagnosis: Rash and other nonspecific skin eruption[ICD10: R21] Diagnosis: Localized edema[ICD10: R60.0] Christin Sahu MD, [facility] CPT-4 : 60163 02/09/2017 [id number] EST. PATIENT, LEVEL III Diagnosis: Diseases of lips[ICD10: K13.0] Christin Sahu MD, [facility] CPT-4 : 16048 12/04/2015 03928 EST. PATIENT, LEVEL IV Diagnosis: Pain in thoracic spine[ICD10: M54.6] Diagnosis: Pain in left arm[ICD10: M79.602] Diagnosis: Pain in left shoulder[ICD10: M25.512] Christin Sahu MD, [facility] CPT-4: 34889 07/21/2015 73524 EST. PATIENT, LEVEL IV Diagnosis: Pain in left shoulder[ICD10: M25.512] Christin Sahu MD, [facility] CPT-4: 34474 07/17/2015 ([id number]) 47782 EST. PATIENT, LEVEL IV Diagnosis: ESSENTIAL HYPERTENSION[ICD9: 401.9] Diagnosis: Screening for malignant neoplasm of breast[ICD9: V76.10] Diagnosis: Smoking history[ICD9: V15.82] Diagnosis: Dyspnea[ICD9: 786.09] Michaela Sahu MD, [facility] CPT-4: 64246 10/28/2014 ([id number]) 52220 EST. PATIENT, LEVEL III Diagnosis: Shoulder pain[ICD9: 719.41] Diagnosis: Osteoarthritis[ICD9: 715.90] Michaela Sahu MD, [facility] CPT- 4: 86511 06/23/2014 ([id number]) 35547 EST. PATIENT, LEVEL IV Diagnosis: HYPERLIPIDEMIA[ICD9: 272.4] Diagnosis: HYPOTHYROIDISM[ICD9: 244.9] Michaela Sahu MD, [facility] CPT- 4: 00304 04/21/2014 ([id number]) 40506 EST. PATIENT, LEVEL IV Diagnosis: Sinusitis[ICD9: 473.9] Diagnosis: Pain, dental[ICD9: 525.9] Diagnosis: HYPOTHYROIDISM[ICD9: 244.9] Diagnosis: HYPOPOTASSEMIA[ICD9: 276.8] Michaela Sahu MD, [facility] CPT- 4: 22969 12/23/2013 ([id number]) 69287 EST. PATIENT, LEVEL IV Diagnosis: ESSENTIAL HYPERTENSION[ICD9: 401.9] Diagnosis: HYPOTHYROIDISM[ICD9: 244.9] Michaela Sahu MD, [facility] CPT- 4: 69599 12/02/2013 ([id number]) 57570 EST. PATIENT, LEVEL IV Diagnosis: ESSENTIAL HYPERTENSION[SNOMED: 63823550] Diagnosis: HYPOTHYROIDISM[ICD9: 244.9] Diagnosis: Asthma, allergic[ICD9: 493.90] Michaela Sahu MD, [facility] CPT- 4: 61262 08/01/2013 ([id number]) OFFICE/OUTPATIENT VISIT NEW Diagnosis: ESSENTIAL HYPERTENSION[SNOMED: 70429178] Diagnosis: EDEMA[ICD9: 782.3] Diagnosis: Psoriasis[ICD9: 696.1] Diagnosis: Pes planus[ICD9: 734] Diagnosis: HYPOTHYROIDISM[ICD9: 244.9] Diagnosis: OBESITY[ICD9: 278.00] Diagnosis: AA (alcohol abuse)[ICD9: 305.00] Diagnosis: Dietary counseling[ICD9: V65.3] [facility] CPT- 4: 51584 04/23/2013 Plan of Care Planned Activity Notes Codes Status Date Visit Plan: Rash - bilateral legs - The patient was instructed in appropriate wound care. The patient was instructed to use the antibiotic ointment as per RX. The patient is to call for any change in symptoms , increase in size of the lesion, increase in pain, worsening redness, warmth, discharge. Edema - pt has been advised to elevate legs to prevent dependent edema, compression has been recommended to help to naturally decrease peripheral edema. Diuretic use has been discussed and pt has been instructed in appropriate use of such medication as necessary to further attempt to reduce peripheral edema. 02/09/2017 Appointment: [facility] [phone] [phone] (15 min) Moderate 02/09/2017 Patient Education: Patient Medication Summary Completed 02/09/2017 Patient Education: Patient Medication Summary Completed 01/08/2016 Visit Plan: Sore on lip - Pt was instructed to keep the area clean, wash with antibacterial soap, call if redness, pustular drainage, any change in symptoms, increase in size of the lesion, or increase in pain. 12/04/2015 Patient Education: Patient Medication Summary Completed 12/04/2015 Patient Education: Obesity Completed 12/04/2015 Visit Plan: left shoulder pain - anti-inflammatories directed to be taken per RX instructions and pt to call if symptoms are not improved. Continued symptoms - Will order MRI - pending results will refer to PT or Ortho 07/21/2015 Appointment: Alej[facility] [phone] [phone] (15 min) Moderate 07/21/2015 Patient Education: Patient Medication Summary Completed 07/21/2015 Patient Education: Obesity Completed 07/21/2015 Care Plan: MRI JOINT UPR EXTREM W/O DYE LOINC : 17769-6 Pending 07/21/2015 Care Plan: MRI CHEST SPINE W/O DYE LOINC : 52493-1 Pending 07/21/2015 Visit Plan: left shoulder pain - anti-inflammatories directed to be taken per RX instructions and pt to call if symptoms are not improved. If symptoms do not improve will get shoulder X-Ray 07/17/2015 Appointment: Alejandra Huang WPtel: [phone] (30 min) Complex 07/17/2015 Patient Education: Patient Medication Summary Completed 07/17/2015 Patient Education: Obesity Completed 07/17/2015 Visit Plan: Hypertension - well controlled - continue with current medications, continue with no added salt diet. Pt has been encouraged to exercise daily. The pt has been advised to call the office if there are any acute concerns about change in blood pressure readings at home. Asthma with dyspnea - chronic problem for this patient. We have reviewed chronic treatment strategy, symptom control, and plans for acute exacerbations. No changes today to the current treatment plan as the patient is stable, monitor for acute changes. 10/28/2014 Appointment: Michaela Sahu WPtel: [address] [place], [place] [phone] Follow up 10/28/2014 Patient Education: Patient Medication Summary Completed 10/28/2014 Patient Education: Hypertension Completed 10/28/2014 Visit Plan: Biceps tendinitis - pt to do exercises as directed, ant-inflammatories directed to be taken per RX instructions and pt to call if symptoms are not improved. Arthritis - Pt to take anti-inflammatories - continue with plans for therapy. 06/23/2014 Appointment: Michaela Sahu WPtel: [address] [place], [place] [phone] Follow up 06/23/2014 Patient Education: Patient Medication Summary Completed 06/23/2014 Visit Plan: Hypertension - well controlled - continue with current medications, continue with no added salt diet. Pt has been encouraged to exercise daily. The pt has been advised to call the office if there are any acute concerns about change in blood pressure readings at home. Hypothyroidism - pt with chronic hypothyroidism, continue with current medication, will monitor pt to signs or symptoms of lack of adequate supplementation. Pt is to continue with current dose of medication unless directed otherwise. Check labs at regular intervals wither q 3 months or q 6 months based on previous levels of control. 04/21/2014 Appointment: Michaela aShu WPtel: [facility] Follow [facility] 04/21/2014 Patient Education: Patient Medication Summary Completed 04/21/2014 Visit Plan: Hypothyroidism - pt with chronic hypothyroidism , continue with current medication, will monitor pt to signs or symptoms of lack of adequate supplementation. Pt is to continue with current dose of medication unless directed otherwise. Check labs at regular intervals wither q 3 months or q 6 months based on previous levels of control. Pt feeling better on higher dose of the synthroid. Continue with current dose of synthroid. Sinusitis - Pt has acute infection - pain in face, maxillary region, Pt informed to use decongestant, RX given to patient, sinus rinses also recommended. Call if symptoms do not show improvement. Dental pain/sinusitis - pt to be on clindamycin. 12/23/2013 Visit Plan: Hypothyroidism - pt with chronic hypothyroidism , continue with current medication, will monitor pt to signs or symptoms of lack of adequate supplementation. Pt is to continue with current dose of medication unless directed otherwise. Check labs at regular intervals wither q 3 months or q 6 months based on previous levels of control. Pt feeling better on higher dose of the synthroid. Continue with current dose of synthroid. Sinusitis - Pt has acute infection - pain in face, maxillary region, Pt informed to use decongestant, RX given to patient, sinus rinses also recommended. Call if symptoms do not show improvement. Dental pain/sinusitis - pt to be on clindamycin. 12/23/2013 Patient Education: Patient Medication Summary Completed 12/23/2013 Visit Plan: Hypertension - uncontrolled -however pt is going out of town, and I don't want to change her medications prior to her planned vacation. The patient has been counseled to cut back on salt in diet for a no added salt diet, low fat diet, start an exercise program with low weight bearing exercises and higher aerobic activity for heart health. The patient is to check blood pressure readings as an outpatient and either fax, call, or email the readings to the office next week for practitioner to review. The pt is to call for acute concerns. Hypothyroidism - pt with chronic hypothyroidism, continue with current medication, will monitor pt to signs or symptoms of lack of adequate supplementation. Pt is to continue with current dose of medication unless directed otherwise. Check labs at regular intervals wither q 3 months or q 6 months based on previous levels of control. 12/02/2013 Appointment: [facility]el[facility] [phone] [phone] [facility] 12/02/2013 Patient Education: Patient Medication Summary Completed 12/02/2013 Patient Education: Hypertension Completed 12/02/2013 Visit Plan: Hypertension - well controlled - continue with current medications, continue with no added salt diet. Pt has been encouraged to exercise daily. The pt has been advised to call the office if there are any acute concerns about change in blood pressure readings at home. Euthyroid Hypothyroidism - pt feeling much improved on the synthroid. Hx of Allergy induced Asthma - will give RX for nasonex and samples of Advair. Pt to continue with OTC julio c. 08/01/2013 Appointment: [facility]ahu [facility]el[facility] [phone] [phone] [facility] 08/01/2013 Patient Education: Patient Medication Summary Completed 08/01/2013 Patient Education: Hypertension Completed 08/01/2013 Visit Plan: Hypertension - well controlled - continue with current medications, continue with no added salt diet. Pt has been encouraged to exercise daily. The pt has been advised to call the office if there are any acute concerns about change in blood pressure readings at home. Hypothyroidism - pt with chronic hypothyroidism, - but with new and worsening symptoms - pt has family history of thyroid cancer, - recommended a fasting lab check as well as thyroid check with ultrasound. Meanwhile, pt is to continue with current dose of medication. Check labs at regular intervals wither q 3 months or q 6 months based on previous levels of control. Obesity - chronic issue with this patient. The pt has been counseled about diet changes, calorie restriction, and need to exercise. Pt will RTC in one month for weight check. Pes Planus - recommended for the patient to get more supportive shoes - she is wearing 'flip- flops and house shoes" most of the time, and does not wear supportive shoes when she gets out of the house. Rash - continue with current steroid topical treatments. GERD - continue with pantoprazole, avoid spicy foods, and fatty foods. Depression - controlled - chronically on sertraline, recommended pt to get more hobbies, get out of the house. Alcohol abuse - pt has been drinking 10- 15 alcoholic drinks a week - pt has been relying on the alcohol to help treat her boredom. I have recommended gradually decreasing the drinks down to 3/week and try not to use the alcohol for "entertainment" purposes. 04/23/2013 Appointment: Michaela Sahu WPtel[facility] [phone] [phone] [place] New Patient 04/23/2013 Patient Education: Patient Medication Summary Completed 04/23/2013 Patient Education: Hypertension Completed 04/23/2013 Patient Education: .Amazing charts Diabetic meal planning guide Completed 04/23 Instructions Comment Start lasix and potassium if swelling worsens, or with a weight gain of 2-3lbs in a day Start doxycycline antibiotic Start betamethasone cream Let me know if it is not getting any better . Rash - bilateral legs - The patient was instructed in appropriate wound care. The patient was instructed to use the antibiotic ointment as per RX. The patient is to call for any change in symptoms, increase in size of the lesion, increase in pain, worsening redness, warmth, discharge. Edema - pt has been advised to elevate legs to prevent dependent edema, compression has been recommended to help to naturally decrease peripheral edema. Diuretic use has been discussed and pt has been instructed in appropriate use of such medication as necessary to further attempt to reduce peripheral edema. . left shoulder pain - anti-inflammatories directed to be taken per RX instructions and pt to call if symptoms are not improved. If symptoms do not improve will get shoulder X-Ray . Hypertension - well controlled - continue with current medications, continue with no added salt diet. Pt has been encouraged to exercise daily. The pt has been advised to call the office if there are any acute concerns about change in blood pressure readings at home. Euthyroid Hypothyroidism - pt feeling much improved on the synthroid. Hx of Allergy induced Asthma - will give RX for nasonex and samples of Advair. Pt to continue with OTC julio c. . left shoulder pain - anti-inflammatories directed to be taken per RX instructions and pt to call if symptoms are not improved. Continued symptoms - Will order MRI - pending results will refer to PT or Ortho . Biceps tendinitis - pt to do exercises as directed, ant-inflammatories directed to be taken per RX instructions and pt to call if symptoms are not improved. Arthritis - Pt to take anti-inflammatories - continue with plans for therapy. start on a probiotic - like culturelle or [employer] - take three times daily while on antibiotic . Hypothyroidism - pt with chronic hypothyroidism, continue with current medication, will monitor pt to signs or symptoms of lack of adequate supplementation. Pt is to continue with current dose of medication unless directed otherwise. Check labs at regular intervals wither q 3 months or q 6 months based on previous levels of control. Pt feeling better on higher dose of the synthroid. Continue with current dose of synthroid. Sinusitis - Pt has acute infection - pain in face, maxillary region, Pt informed to use decongestant, RX given to patient, sinus rinses also recommended. Call if symptoms do not show improvement. Dental pain/sinusitis - pt to be on clindamycin. start on a probiotic - like culturelle or [employer] colon health - take three times daily while on antibiotic . Hypothyroidism - pt with chronic hypothyroidism, continue with current medication, will monitor pt to signs or symptoms of lack of adequate supplementation. Pt is to continue with current dose of medication unless directed otherwise. Check labs at regular intervals wither q 3 months or q 6 months based on previous levels of control. Pt feeling better on higher dose of the synthroid. Continue with current dose of synthroid. Sinusitis - Pt has acute infection - pain in face, maxillary region, Pt informed to use decongestant, RX given to patient, sinus rinses also recommended. Call if symptoms do not show improvement. Dental pain/sinusitis - pt to be on clindamycin. . Hypertension - uncontrolled -however pt is going out of town, and I don't want to change her medications prior to her planned vacation. The patient has been counseled to cut back on salt in diet for a no added salt diet, low fat diet, start an exercise program with low weight bearing exercises and higher aerobic activity for heart health. The patient is to check blood pressure readings as an outpatient and either fax , call, or email the readings to the office next week for practitioner to review. The pt is to call for acute concerns. Hypothyroidism - pt with chronic hypothyroidism, continue with current medication, will monitor pt to signs or symptoms of lack of adequate supplementation. Pt is to continue with current dose of medication unless directed otherwise. Check labs at regular intervals wither q 3 months or q 6 months based on previous levels of control. . Hypertension - well controlled - continue with current medications, continue with no added salt diet. Pt has been encouraged to exercise daily. The pt has been advised to call the office if there are any acute concerns about change in blood pressure readings at home. Asthma with dyspnea - chronic problem for this patient. We have reviewed chronic treatment strategy, symptom control, and plans for acute exacerbations. No changes today to the current treatment plan as the patient is stable, monitor for acute changes. . Hypertension - well controlled - continue with current medications, continue with no added salt diet. Pt has been encouraged to exercise daily. The pt has been advised to call the office if there are any acute concerns about change in blood pressure readings at home. Hypothyroidism - pt with chronic hypothyroidism, - but with new and worsening symptoms - pt has family history of thyroid cancer, - recommended a fasting lab check as well as thyroid check with ultrasound. Meanwhile, pt is to continue with current dose of medication. Check labs at regular intervals wither q 3 months or q 6 months based on previous levels of control. Obesity - chronic issue with this patient. The pt has been counseled about diet changes, calorie restriction, and need to exercise. Pt will RTC in one month for weight check. Pes Planus - recommended for the patient to get more supportive shoes - she is wearing 'flip-flops and house shoes" most of the time, and does not wear supportive shoes when she gets out of the house. Rash - continue with current steroid topical treatments. GERD - continue with pantoprazole, avoid spicy foods, and fatty foods. Depression - controlled - chronically on sertraline, recommended pt to get more hobbies, get out of the house. Alcohol abuse - pt has been drinking 10-15 alcoholic drinks a week - pt has been relying on the alcohol to help treat her boredom. I have recommended gradually decreasing the drinks down to 3/week and try not to use the alcohol for "entertainment" purposes. . Hypertension - well controlled - continue with current medications, continue with no added salt diet. Pt has been encouraged to exercise daily. The pt has been advised to call the office if there are any acute concerns about change in blood pressure readings at home. Hypothyroidism - pt with chronic hypothyroidism, continue with current medication, will monitor pt to signs or symptoms of lack of adequate supplementation. Pt is to continue with current dose of medication unless directed otherwise. Check labs at regular intervals wither q 3 months or q 6 months based on previous levels of control. . Sore on lip - Pt was instructed to keep the area clean, wash with antibacterial soap, call if redness, pustular drainage, any change in symptoms, increase in size of the lesion, or increase in pain.
--- OUTSIDE RECORDS SUMMARY | 2017-11-17 08:03 | XMS REPORT | CCD ---
Author Author Michaela Sahu Organization Michaela Sahu MD, [facility] Address [address] [place] [address] Phone Care Team Providers Care Marine Cargo Inspector Name Role Phone PP Unavailable CCM Unavailable Summary Purpose Interface Exchange Insurance Providers Payer name Policy type / Coverage type Covered alliance party ID Effective Begin Date Effective End Date WPS Medicare Part B [id number] Unknown [employer] [id number] Unknown Family history Mother Diagnosis Age At [...] Unknown House 04/23/[address]: 1787332 Former smoker 04/23/2013 Number of years using tobacco Unknown 20 quit 1998 1 1/2 pack daily 04/23/[address]: 734734 Currently drinks alcohol 10-15 DRINKS WEEKLY 04/23/2013 [...] betamethasone dipropionate 0.05 % topical cream RxNorm: 557231 1 Application TOP BID 02/09/2017 No Stop Date Active doxycycline hyclate 100 mg capsule RxNorm: 3963923 1 Capsule(s) PO BID 02/09/2017 02/18/2017 Inactive Lasix 20 mg tablet RxNorm: 271151 1 Tablet(s) PO daily 201602/08/2017 Inactive potassium chloride ER 10 mEq tablet,extended release RxNorm: 693037 1 Tablet(s) PO daily take while on the lasix 02/09/2017 02/11/2017 Inactive betamethasone dipropionate 0.05 % topical cream RxNorm: 287049 1 Application TOP BID 02/09/2017 02/08/2017 Inactive potassium chloride ER 10 mEq tablet,extended release RxNorm: 687287 1 Tablet(s) PO daily take while on the lasix 02/09/2017 02/08/2017 Inactive doxycycline hyclate 100 mg capsule RxNorm: 2131645 1 Capsule(s) PO BID 02/09/2017 02/08/2017 Inactive Lasix 20 mg tablet RxNorm: 545671 1 Tablet(s) PO daily 201602/11/2017 Inactive losartan 100 mg tablet RxNorm: 460629 TAKE 1 TABLET EVERY DAY 09/28/2016 09/22/2017 Active sertraline 100 mg tablet RxNorm: 738709 TAKE 1 TABLET EVERY DAY 09/28/2016 09/22/2017 Active pantoprazole 40 mg tablet,delayed release RxNorm: 347411 TAKE 1 TABLET EVERY DAY 09/28/2016 09/22/2017 Active Synthroid 75 mcg tablet RxNorm: 027991 TAKE 1 TABLET EVERY DAY 04/25/2016 04/19/2017 Active pantoprazole 40 mg tablet,delayed release RxNorm: 881380 TAKE 1 TABLET EVERY DAY 12/14/2015 09/27/2016 Inactive sertraline 100 mg tablet RxNorm: 140323 TAKE 1 TABLET EVERY DAY 12/14/2015 09/27/2016 Inactive losartan 100 mg tablet RxNorm: 274526 TAKE 1 TABLET EVERY DAY 12/14/2015 09/27/2016 Inactive Voltaren 1 % topical gel RxNorm: 635911 1 TOP BID 07/21/2015 No Stop Date Active naproxen 500 mg tablet RxNorm: 664058 1 Tablet(s) PO BID 201508/03/2015 Inactive Pennsaid 20 mg/gram/actuation (2 %) topical soln in metered -dose pump RxNorm: 7055087 1 Application TOP BID as needed for pain 07/17/2015 08/15/2015 Inactive cyclobenzaprine 5 mg tablet RxNorm: 126582 1 Tablet(s) PO TID as needed muscle spasms 07/17/2015 07/26/2015 Inactive sertraline 100 mg tablet RxNorm: 691800 1 TABLET(S) PO DAILY 12/13/2015 Inactive sertraline 100 mg tablet RxNorm: 633956 Tablet(s) 1 TABLET(S) PO DAILY 04/08/2015 12/13/2015 Inactive Synthroid 75 mcg tablet RxNorm: 473001 Tablet(s) 1 TABLET(S) PO DAILY 04/08/2015 10/04/2015 Inactive [SAVINGS FOR UNINSURED PATIENTS -- BIN:179412, PCN: ASPROD1, Group: [id number], ID# [id number], Process claim through [employer], for questions: [phone]. THIS IS NOT INSURANCE.] losartan 100 mg tablet RxNorm: 043459 1 Tablet(s) PO daily 10/04/2015 Inactive Singulair 10 mg tablet RxNorm: 654552 1 TABLET(S) PO DAILY 07/31/2015 Inactive Synthroid 75 mcg tablet RxNorm: 453319 1 TABLET(S) PO DAILY 04/07/2015 Inactive [SAVINGS FOR UNINSURED PATIENTS -- BIN:567937, PCN: ASPROD1, Group: [id number] , ID# [id number], Process claim through [employer], for questions: . THIS IS NOT INSURANCE.] albuterol sulfate HFA 90 mcg/actuation aerosol inhaler RxNorm: 0861319 1 Puff(s) INH QID as needed dyspnea 10/28/201402/24 Inactive Singulair 10 mg tablet RxNorm: 289736 1 Tablet(s) PO daily 09/201402/01/2015 Inactive sertraline 100 mg tablet RxNorm: 754425 1 TABLET(S) PO DAILY 04/07/2015 Inactive losartan 100 mg tablet RxNorm: 772507 1 Tablet(s) PO daily 04/07/2015 Inactive pantoprazole 40 mg tablet,delayed release RxNorm: 295439 1 Tablet(s) PO daily 08/04/2014 07/29/2015 Inactive Zorvolex 35 mg capsule RxNorm: 9504114 1 Capsule(s) PO TID as needed for pain 06/23/2014 07/16/2014 Inactive [SAVINGS FOR NON-COVERED DRUGS -- BIN:188495, PCN: ASPROD1, Group: XXXXX, ID# [id number], Questions: . THIS IS NOT INSURANCE.] clindamycin 300 mg capsule RxNorm: 999832 1 Capsule(s) PO TID 12/23/2013 12/29/2013 Inactive [SAVINGS FOR UNINSURED PATIENTS -- BIN:156141, PCN: ASPROD1, Group: [id number], ID# [id number], Process claim through [employer], for questions: [phone]. THIS IS NOT INSURANCE.] Synthroid 75 mcg tablet RxNorm: 087328 1 Tablet(s) PO daily 04/201312/17/2014 Inactive [SAVINGS FOR UNINSURED PATIENTS -- BIN:585277, PCN: ASPROD1, Group: [id number] , ID# [id number], Process claim through [employer], for questions: . THIS IS NOT INSURANCE.] Nasonex 50 mcg/actuation [place] RxNorm: 835708 1 [place] NASAL BID 08/01/2013 02/26/2014 Inactive Synthroid 50 mcg tablet RxNorm: 741095 1 Tablet(s) PO daily 01/201412/22/2013 Inactive sertraline 100 mg tablet RxNorm: 269800 1 Tablet(s) PO daily 06/20/2014 Inactive Synthroid 50 mcg tablet RxNorm: 957919 1 Tablet(s) PO daily 08/201307/31/2013 Inactive losartan 100 mg tablet RxNorm: 873166 1 Tablet(s) PO daily 08/201306/20/2014 Inactive pantoprazole 40 mg tablet,delayed release RxNorm: 118827 1 Tablet(s) PO daily 06/26/2013 06/20/2014 Inactive levothyroxine 50 mcg tablet RxNorm: 187560 1 Tablet(s) PO daily 06/05/2013 06/25/2013 Inactive clobetasol 0.05 % topical cream RxNorm: 780910 1 Application TOP PRN 04/23/2013 No Stop Date Active put on pt profile, she will call to dash levothyroxine 50 mcg tablet RxNorm: 772199 1 Tablet(s) PO daily 04/23/2013 06/04/2013 Inactive Fish Oil 1,000 mg capsule RxNorm: 2 Capsule(s) PO BID No Start Date Active has 2000 mg take one bid niacin 500 mg tablet RxNorm: 476057 1 Tablet(s) PO QHS No Start Date Active Tylenol 325 mg tablet RxNorm: 717972 Tablet(s) PO BID No Start Date Active atorvastatin 20 mg tablet RxNorm: 519542 1 Tablet(s) PO QHS No Start Date Active losartan 100 mg tablet RxNorm: 439681 1 Tablet(s) PO daily No Start Date 06/25/2013 Inactive levothyroxine 50 mcg tablet RxNorm: 121324 oral No Start Date 04/22/2013 Inactive pantoprazole 40 mg tablet,delayed release RxNorm: 541283 1 Tablet(s) PO daily No Start Date 06/25/2013 Inactive clobetasol 0.05 % topical cream RxNorm: 423883 1 Application TOP PRN No Start Date 04/22/2013 Inactive sertraline 100 mg tablet RxNorm: 706991 1 Tablet(s) PO daily No Start Date [...] Item Item Code Result Date Free T4 [id number] FREE T4 1.00 ng/dL 10/28/2014 Metabolic Ord15 [...] hTSH II 1.26 uIU/mL 10/28/2014 FREE T4 0057544 FREE T4 1.22 NG/DL 12/02/2013 TSH 9625727 TSH 2.064 uIU/ML 12/02/2013 GFR CALC 3321219 GFR AA 57.0L ML/MIN 12/02/2013 GFR CALC 1512115 GFR NON-AA 47.0L ML/MIN 12/02/2013 CHEM 14 3335611 AST 20 U/L 12/02/2013 CHEM 14 1579210 ALT 20 IU/L 12/02/2013 CHEM 14 1271499 BUN 21 MG/DL 12/02/2013 CHEM 14 9401352 ALBUMIN 4.4 GM/DL 12/02/2013 CHEM 14 5018819 CHLORIDE 104 MMOL/L 12/02/2013 CHEM 14 8943109 BILI TOT 0.3 MG/DL 12/02/2013 CHEM 14 6397107 ALK PHOS 80 U/L 12/02/2013 CHEM 14 4670202 SODIUM 139 MMOL/L 12/02/2013 CHEM 14 0218417 CREATININE 1.15 MG/DL 12/02/2013 CHEM 14 0205975 CALCIUM 9.7 MG/DL 12/02/2013 CHEM 14 3237988 POTASSIUM 4.5 MMOL/L 12/02/2013 CHEM 14 5284773 PROT TOT 6.7 GM/DL 12/02/2013 CHEM 14 4258873 GLUCOSE 102 MG/DL 12/02/2013 CHEM 14 1217107 BICARB 29 MMOL/L 12/02/2013 CHEM 14 9438378 ANION GAP 6 MEQ/L 12/02/2013 Review of [...] Procedures Procedure Codes Date ROUTINE VENIPUNCTURE CPT-4: 08349 12/02/2013 Vital Signs Date Vital 02/09/2017 Blood Pressure 1: 148/78 Code : 8480-6 BMI: 32.6 Code : 19831-3 Heart Rate 1 : 70 bpm Height: 5'6" SpO2: 98% Weight: 202 lbs 12/04/2015 Blood Pressure 1: 150/86 Code : 8480-6 BMI: 32.6 Code : 62459-4 Heart Rate 1 : 61 bpm Height: 5'6" SpO2: 94% Weight: 202 lbs 07/21/2015 Blood Pressure 1: 150/88 Code : 8480-6 BMI: 32.0 Code : 46529-7 Heart Rate 1 : 72 bpm Height: 5'6" SpO2: 94% Weight: 198 lbs 07/17/2015 Blood Pressure 1: 178/88 Code : 8480-6 Blood Pressure 1: 142/80 Code: 8480-6 BMI: 32.0 Code: 03369-7 Heart Rate 1: 58 bpm Height: 5'6" SpO2: 97% Weight: 198 lbs 10/28/2014 Blood Pressure 1: 126/70 Code : 8480-6 BMI: 30.5 Code : 39425-2 Heart Rate 1 : 58 bpm Height: 5'6" SpO2: 95% Weight: 189 lbs 06/23/2014 Blood Pressure 1: 136/88 Code : 8480-6 BMI: 30.9 Code : 41421-3 Heart Rate 1 : 80 bpm Height: 5'4" Weight: 180 lbs 04/21/2014 Blood Pressure 1: 130/70 Code : 8480-6 BMI: 31.6 Code : 55594-9 Heart Rate 1 : 60 bpm Height: 5'4" Weight: 184 lbs 12/23/2013 Blood Pressure 1: 140/72 Code : 8480-6 BMI: 34.0 Code : 53787-2 Heart Rate 1 : 56 bpm Height: 5'4" Weight: 198 lbs 12/02/2013 Blood Pressure 1: 158/90 Code : 8480-6 BMI: 33.8 Code : 36317-5 Heart Rate 1 : 61 bpm Height: 5'4" SpO2: 95% Weight: 197 lbs 08/01/2013 Blood Pressure 1: 180/92 Code : 8480-6 BMI: 34.0 Code : 87027-6 Heart Rate 1 : 52 bpm Height: 5'4" Weight: 198 lbs 04/23/2013 Blood Pressure 1: 104/70 Code : 8480-6 BMI: 33.6 Code : 61528-4 Heart Rate 1 : 84 bpm Height: [...] Diagnosis: Localized edema[ICD10: R60.0] Christin Sahu MD, [facility] CPT-4 : 54288 02/09/2017 00410 EST. PATIENT, LEVEL III Diagnosis: Diseases of lips[ICD10: K13.0] Christin Sahu MD, [facility] CPT-4 : 23385 12/04/2015 [id number] EST. PATIENT, LEVEL IV Diagnosis: Pain in thoracic spine[ICD10: M54.6] Diagnosis: Pain in left arm[ICD10: M79.602] Diagnosis: Pain in left shoulder[ICD10: M25.512] Christin Sahu MD, [facility] CPT-4: 53060 07/21/2015 [id number] EST. PATIENT, LEVEL IV Diagnosis: Pain in left shoulder[ICD10: M25.512] Christin Sahu MD, [facility] CPT-4: 93957 07/17/2015 ([id number]) 01130 EST. PATIENT, LEVEL IV Diagnosis: ESSENTIAL HYPERTENSION[ICD9: 401.9] Diagnosis: Screening for malignant neoplasm of breast[ICD9: V76.10] Diagnosis: Smoking history[ICD9: V15.82] Diagnosis: Dyspnea[ICD9: 786.09] Michaela Sahu MD, [facility] CPT-4: 38546 10/28/2014 ([id number]) 36808 EST. PATIENT, LEVEL III Diagnosis: Shoulder pain[ICD9: 719.41] Diagnosis: Osteoarthritis[ICD9: 715.90] Michaela Sahu MD, [facility] CPT- 4: 33125 06/23/2014 ([id number]) 12949 EST. PATIENT, LEVEL IV Diagnosis: HYPERLIPIDEMIA[ICD9: 272.4] Diagnosis: HYPOTHYROIDISM[ICD9: 244.9] Michaela Sahu MD, [facility] CPT- 4: 48117 04/21/2014 ([id number]) 48574 EST. PATIENT, LEVEL IV Diagnosis: Sinusitis[ICD9: 473.9] Diagnosis: Pain, dental[ICD9: 525.9] Diagnosis: HYPOTHYROIDISM[ICD9: 244.9] Diagnosis: HYPOPOTASSEMIA[ICD9: 276.8] Michaela Sahu MD, [facility] CPT- 4: 56658 12/23/2013 ([id number]) 86467 EST. PATIENT, LEVEL IV Diagnosis: ESSENTIAL HYPERTENSION[ICD9: 401.9] Diagnosis: HYPOTHYROIDISM[ICD9: 244.9] Michaela Sahu MD, [facility] CPT- 4: 05412 12/02/2013 ([id number]) 31774 EST. PATIENT, LEVEL IV Diagnosis: ESSENTIAL HYPERTENSION[SNOMED: 28828459] Diagnosis: HYPOTHYROIDISM[ICD9: 244.9] Diagnosis: Asthma, allergic[ICD9: 493.90] Michaela Sahu MD, [facility] CPT- 4: 87690 08/01/2013 ([id number]) OFFICE/OUTPATIENT VISIT NEW Diagnosis: ESSENTIAL HYPERTENSION[SNOMED: 78587505] Diagnosis: EDEMA[ICD9: 782.3] Diagnosis: Psoriasis[ICD9: 696.1] Diagnosis: Pes planus[ICD9: 734] Diagnosis: HYPOTHYROIDISM[ICD9: 244.9] Diagnosis: OBESITY[ICD9: 278.00] Diagnosis: AA (alcohol abuse)[ICD9: 305.00] Diagnosis: Dietary counseling[ICD9: V65.3] [facility] CPT- 4: 91914 04/23/2013 Plan of Care Planned Activity Notes [...] edema. 02/09/2017 App[facility]ment[facility] [phone] [facility] (15 min) Moderate 02/09/2017 Patient Education: Patient [...] or Ortho 07/21/2015 Appointment: Alejandra Huang [facility]el[facility] [phone] [phone] (15 min) Moderate 07/21/2015 Patient Education: Patient Medication Summary Completed 07/21/2015 Patient Education: Obesity Completed 07/21/2015 Care Plan: MRI JOINT UPR EXTREM W/O DYE LOINC : 35578-7 Pending 07/21/2015 Care Plan: MRI CHEST SPINE W/O DYE LOINC : 66249-1 Pending 07/21/2015 Visit Plan: left shoulder pain - anti-inflammatories directed to be taken per RX instructions and pt to call if symptoms are not improved. If symptoms do not improve will get shoulder X-Ray 07/17/2015 Appointment: Alejandra Huang WPtel: [phone] (30 min) Complex 07/17/2015 Patient Education: Patient [...] acute changes. 10/28/2014 Appointment: Michaela Sahu WPtel: [address] [place], [place] [phone] Follow up 10/28/2014 Patient Education: Patient Medication Summary Completed 10/28/2014 Patient Education: Hypertension Completed 10/28/2014 Visit Plan: Biceps tendinitis - pt to do exercises as directed, ant-inflammatories directed to be taken per RX instructions and pt to call if symptoms are not improved. Arthritis - Pt to take anti-inflammatories - continue with plans for therapy. 06/23/2014 Appointment: Michaela Sahu WPtel: [address] [place], [place] [phone] Follow up 06/23/2014 Patient Education: Patient Medication [...] previous levels of control. 04/21/2014 Appointment: Michael[facility]ahu WPtel[facility] Follow up 04/21/2014 Patient Education: Patient Medication [...] control. 12/02/2013 Appointment: [facility] [phone] [facility] Follow up 12/02/2013 Patient Education: Patient Medication [...] julio c. 08/01/2013 Appointment: [facility]el[facility] [phone] [facility] Follow up 08/01/2013 Patient Education: Patient Medication [...] "entertainment" purposes. 04/23/2013 Appointment: [facility]ahu [facility]el[facility] [phone] [facility] [place] New Patient 04/23/2013 Patient Education: Patient [...] on a probiotic - like culturelle or [employer] health - take three times daily while [...] on a probiotic - like culturelle or [employer] colon health - take three times daily [...]
--- OUTSIDE RECORDS SUMMARY | 2017-11-17 08:05 | XMS REPORT | Continuity of Care Document ---
Author Author [facility] Organization [facility] Address Unknown Phone Unavailable Allergies Active Description Code Type Severity Reaction Onset Reported/Identified Relationship to Patient Clinical Status Yes Sulfa (Sulfonamide Antibiotics) [id number] Drug Allergy Unknown N/A 2008 Medications There is no data. Problems Date Dx Coded Attending Type Code Diagnosis Diagnosed By 02/08/2013 MICHOACANO HARRINGTON POUAKO KURA KAUPAPA MAORI Ot 327.23 OBSTRUCTIVE SLEEP APNEA (ADULT) (PEDIATR 05/28/2013 JEIMY KINSEY FACC, MAYA FACP CCDS Ot 244.9 HYPOTHYROIDISM NOS 05/28/2013 JEIMY KINSEY FACC, MAYA FACP CCDS Ot 272.4 HYPERLIPIDEMIA NEC/NOS 05/28/2013 JEIMY KINSEY FACC, MAYA FACP CCDS Ot 401.9 HYPERTENSION NOS 05/28/2013 JEIMY KINSEY FACC, MAYA FACP CCDS Ot 780.57 UNSPECIFIED SLEEP APNEA [...] CHEST PAIN NOS 07/18/2015 Ot V58.66 LONG-TERM ( CURRENT) USE OF ASPIRIN 07/18/2015 Ot V58.69 OTH MED,LT, CURRENT USE 07/18/2015 Ot V76.12 OTH SCREEN MAMMO-MALIGN [...] M54.9 DORSALGIA, UNSPECIFIED 08/11/2015 AXEL, KAMAR M FRENCH FOLDER Ot M19.012 PRIMARY OSTEOARTHRITIS, LEFT SHOULDER 08/11/2015 KAMAR REYNA FRENCH FOLDER Ot M25.512 PAIN IN LEFT SHOULDER 08/14/2015 KAMAR REYNA FRENCH FOLDER Ot M19.012 PRIMARY OSTEOARTHRITIS, LEFT SHOULDER 08/14/2015 KAMAR REYNA FRENCH FOLDER Ot M25.512 PAIN IN LEFT SHOULDER 01/12/2016 AXEL KAMAR Nicholson FRENCH FOLDER Ot Z12.31 ENCNTR SCREEN MAMMOGRAM FOR MALIGNANT NE 01/12/2016 AXEL KAMAR Nicholson FRENCH FOLDER Ot Z12.31 ENCNTR SCREEN MAMMOGRAM FOR MALIGNANT NE 01/13/2016 ISAAC REYNAARA Nicholson FRENCH FOLDER Ot Z12.31 ENCNTR SCREEN MAMMOGRAM FOR MALIGNANT NE 01/13/2016 AXEL KAMAR Nicholson FRENCH FOLDER Ot Z12.31 ENCNTR SCREEN MAMMOGRAM FOR MALIGNANT NE 02/03/2016 AXELKAMAR FRENCH FOLDER Ot Z12.31 ENCNTR SCREEN MAMMOGRAM FOR MALIGNANT NE 04/24/2016 EVGENY AKBAR FRENCH FOLDER Ot J45.909 UNSPECIFIED ASTHMA, UNCOMPLICATED 04/25/2016 EVGENY AKBAR FRENCH FOLDER Ot J45.909 UNSPECIFIED ASTHMA, UNCOMPLICATED 04/28/2016 NAOMIEEVGENY LU FRENCH FOLDER Ot J45.909 UNSPECIFIED ASTHMA, UNCOMPLICATED 05/16/2016 EVGENY AKBAR FRENCH FOLDER Ot J45.909 UNSPECIFIED ASTHMA, UNCOMPLICATED 05/18/2016 EVGENY AKBAR FRENCH FOLDER Ot J45.909 UNSPECIFIED ASTHMA, UNCOMPLICATED 05/18/2016 EVGENY AKBAR FRENCH FOLDER Ot J45.909 UNSPECIFIED ASTHMA, UNCOMPLICATED 07/06/2016 EVGENY AKBAR FRENCH FOLDER Ot G47.33 OBSTRUCTIVE SLEEP APNEA (ADULT) (PEDIATR 07/06/2016 EVGENY AKBAR FRENCH FOLDER Ot J45.909 UNSPECIFIED ASTHMA, UNCOMPLICATED 07/06/2016 EVGENY AKBAR FRENCH FOLDER Ot R06.09 OTHER FORMS OF DYSPNEA 07/06/2016 EVGENY AKBAR FRENCH FOLDER Ot Z87.891 PERSONAL HISTORY OF NICOTINE DEPENDENCE 01/09/2017 Ot 786.09 RESPIRATORY ABNORM NEC 01/09/2017 MAICO JACOBS MD Ot 793.89 OTH (ABN) FINDINGS ON RADIOLOGICAL EXAMI 01/09/2017 MAICO JACOBS MD Ot V76.12 OTH SCREEN MAMMO-MALIGN NEOPLASM OF WOLF 01/09/2017 REYNALDO KINSEY, MAICO Chicas Ot V76.12 OTH SCREEN MAMMO-MALIGN NEOPLASM OF WOLF 01/09/2017 CHARLEY BERG DO Ot G47.33 OBSTRUCTIVE SLEEP APNEA (ADULT) (PEDIATR 01/09/2017 CHARLEY BERG DO Ot R06.09 OTHER FORMS OF DYSPNEA 01/09/2017 KAMAR REYNA FRENCH FOLDER Ot M19.012 PRIMARY OSTEOARTHRITIS, LEFT SHOULDER 01/09/2017 KAMAR REYNA FRENCH FOLDER Ot M25.512 PAIN IN LEFT SHOULDER 01/09/2017 KAMAR REYNA FRENCH FOLDER Ot M25.512 PAIN IN LEFT SHOULDER 01/09/2017 KAMAR REYNA FRENCH FOLDER Ot M54.9 DORSALGIA, UNSPECIFIED 01/09/2017 KAMAR REYNA FRENCH FOLDER Ot Z12.31 ENCNTR SCREEN MAMMOGRAM FOR MALIGNANT NE 01/09/2017 EVGENY AKBAR FRENCH FOLDER Ot J45.909 UNSPECIFIED ASTHMA, UNCOMPLICATED 01/09/2017 EVGENY AKBAR FRENCH FOLDER Ot G47.33 OBSTRUCTIVE SLEEP APNEA (ADULT) (PEDIATR 01/09/2017 EVGENY AKBAR FRENCH FOLDER Ot J45.909 UNSPECIFIED ASTHMA, UNCOMPLICATED 01/09/2017 EVGENY AKBAR FRENCH FOLDER Ot R06.09 OTHER FORMS OF DYSPNEA 01/09/2017 EVGENY AKBAR FRENCH FOLDER Ot Z87.891 PERSONAL HISTORY OF NICOTINE DEPENDENCE 01/17/2017 VANESSA HIGGINSHER L OCCUPATIONAL SAFETY AND HEALTH MANAGER Ot E78.4 OTHER HYPERLIPIDEMIA 01/17/2017 VANESSA HIGGINSHER L OCCUPATIONAL SAFETY AND HEALTH MANAGER Ot G47.33 OBSTRUCTIVE SLEEP APNEA (ADULT) (PEDIATR 01/17/2017 BAIMA JESSICA L OCCUPATIONAL SAFETY AND HEALTH MANAGER Ot I10 ESSENTIAL (PRIMARY) HYPERTENSION 01/17/2017 GISELA JESSICA L OCCUPATIONAL SAFETY AND HEALTH MANAGER Ot I34.0 NONRHEUMATIC MITRAL (VALVE) INSUFFICIENC 01/17/2017 TRINAMA JESSICA L OCCUPATIONAL SAFETY AND HEALTH MANAGER Ot I65.23 OCCLUSION AND STENOSIS OF BILATERAL BRAVO 02/07/2017 BAIMA, JESSICA L OCCUPATIONAL SAFETY AND HEALTH MANAGER Ot E78.4 OTHER HYPERLIPIDEMIA 02/07/2017 BAINAKUL, JESSICA L OCCUPATIONAL SAFETY AND HEALTH MANAGER Ot G47.33 OBSTRUCTIVE SLEEP APNEA (ADULT) (PEDIATR 02/07/2017 BAIMA JESSICA L OCCUPATIONAL SAFETY AND HEALTH MANAGER Ot I10 ESSENTIAL (PRIMARY) HYPERTENSION 02/07/2017 BAIMAJESSICA OCCUPATIONAL SAFETY AND HEALTH MANAGER Ot I34.0 NONRHEUMATIC MITRAL (VALVE) INSUFFICIENC 02/07/2017 JESSICA HIGGINS L OCCUPATIONAL SAFETY AND HEALTH MANAGER Ot I65.23 OCCLUSION AND STENOSIS OF BILATERAL BRAVO 02/14/2017 BAIJESSICA MOTA OCCUPATIONAL SAFETY AND HEALTH MANAGER Ot E78.4 OTHER HYPERLIPIDEMIA 02/14/2017 BAIMA, JESSICA L OCCUPATIONAL SAFETY AND HEALTH MANAGER Ot G47.33 OBSTRUCTIVE SLEEP APNEA (ADULT) (PEDIATR 02/14/2017 BAIMAJESSICA L OCCUPATIONAL SAFETY AND HEALTH MANAGER Ot I10 ESSENTIAL (PRIMARY) HYPERTENSION 02/14/2017 BAIJESSICA MOTA OCCUPATIONAL SAFETY AND HEALTH MANAGER Ot I34.0 NONRHEUMATIC MITRAL (VALVE) INSUFFICIENC 02/14/2017 BAIJESSICA MOTA OCCUPATIONAL SAFETY AND HEALTH MANAGER Ot I65.23 OCCLUSION AND STENOSIS OF BILATERAL BRAVO 02/27/2017 KAMAR REYNA APRN Ot Z12.31 ENCNTR SCREEN MAMMOGRAM FOR MALIGNANT NE 02/27/2017 Ot 786.09 RESPIRATORY ABNORM NEC 02/27/2017 REYNALDO KINSEY, MAICO Chicas Ot 793.89 OTH (ABN) FINDINGS ON RADIOLOGICAL EXAMI 02/27/2017 REYNALDO KINSEY, MAICO Chicas Ot V76.12 OTH SCREEN MAMMO-MALIGN NEOPLASM OF WOLF 02/27/2017 MAICO JACOBS MD Ot V76.12 OTH SCREEN MAMMO-MALIGN NEOPLASM OF WOLF 02/27/2017 CHARLEY BERG DO Ot G47.33 OBSTRUCTIVE SLEEP APNEA (ADULT) (PEDIATR 02/27/2017 CHARLEY BERG DO Ot R06.09 OTHER FORMS OF DYSPNEA 02/27/2017 KAMAR REYNA APRN Ot M19.012 PRIMARY OSTEOARTHRITIS, LEFT SHOULDER 02/27/2017 KAMAR REYNA APRN Ot M25.512 PAIN IN LEFT SHOULDER 02/27/2017 KAMAR REYNA APRN Ot M25.512 PAIN IN LEFT SHOULDER 02/27/2017 KAMAR REYNA APRN Ot M54.9 DORSALGIA, UNSPECIFIED 02/27/2017 KAMAR REYNA APRN Ot Z12.31 ENCNTR SCREEN MAMMOGRAM FOR MALIGNANT NE 02/27/2017 EVGENY AKBAR APRN Ot J45.909 UNSPECIFIED ASTHMA, UNCOMPLICATED 02/27/2017 NAOMIE, EVGENY E FRENCH FOLDER Ot G47.33 OBSTRUCTIVE SLEEP APNEA (ADULT) (PEDIATR 02/27/2017 EVGENY AKBAR APRN Ot J45.909 UNSPECIFIED ASTHMA, UNCOMPLICATED 02/27/2017 EVGENY AKBAR APRN Ot R06.09 OTHER FORMS OF DYSPNEA 02/27/2017 EVGENY AKBAR APRN Ot Z87.891 PERSONAL HISTORY OF NICOTINE DEPENDENCE 02/27/2017 JESSICA HIGGINS OCCUPATIONAL SAFETY AND HEALTH MANAGER Ot E78.4 OTHER HYPERLIPIDEMIA 02/27/2017 JESSICA HIGGINS L OCCUPATIONAL SAFETY AND HEALTH MANAGER Ot G47.33 OBSTRUCTIVE SLEEP APNEA (ADULT) (PEDIATR 02/27/2017 BAIJESSICA MOTA L OCCUPATIONAL SAFETY AND HEALTH MANAGER Ot I10 ESSENTIAL (PRIMARY) HYPERTENSION 02/27/2017 JESSICA HIGGINS L OCCUPATIONAL SAFETY AND HEALTH MANAGER Ot I34.0 NONRHEUMATIC MITRAL (VALVE) INSUFFICIENC 02/27/2017 JESSICA HIGGINS L OCCUPATIONAL SAFETY AND HEALTH MANAGER Ot I65.23 OCCLUSION AND STENOSIS OF BILATERAL BRAVO 02/27/2017 KAMAR REYNA APRN Ot Z12.31 ENCNTR SCREEN MAMMOGRAM FOR MALIGNANT NE 03/21/2017 KAMAR REYNA APRN Ot Z12.31 ENCNTR SCREEN MAMMOGRAM FOR MALIGNANT NE Procedures There is no data. Results There is no data. Encounters ACCT No. Visit Date/Time Discharge Status Pt. Type Provider Facility Loc./Unit Complaint [id number] 02/27/2017 10:01:00 02/27/2017 23:59:59 CLS Outpatient KAMAR REYNA APRN [facility] RAD SCREENING [id number] 01/16/2017 10:16:00 01/16/2017 23:59:59 CLS Outpatient JESSICA HIGGINS [facility] CARD HTN I10 [id number] 05/18/2016 13:53:00 05/18/2016 23:59:59 CLS Outpatient EVGENY AKBAR APRN [facility] LAB ASTHMA [id number] 04/22/2016 10:57:00 04/22/2016 23:59:59 CLS Outpatient EVGENY AKBAR APRN [facility] RAD BRONCHITIS,ASTHMA [id number] 01/12/2016 09:28:00 01/12/2016 23:59:59 CLS Outpatient KAMAR REYNA APRN [facility] RAD SCREENING [id number] 07/24/2015 15:05:00 07/24/2015 23:59:59 CLS Outpatient AXELKAMAR FRENCH FOLDER [facility] RAD LE SHOULDER PAIN, BACK PAIN [id number] 07/18/2015 08:24:00 07/18/2015 23:59:59 CLS Outpatient AXELKAMAR FRENCH FOLDER [facility] RAD L SHOULDER PAIN [id number] 12/29/2014 13:55:00 12/29/2014 23:59:59 CLS Outpatient CHARLEY BERG DO [facility] RT APNEA [id number] 11/14/2014 13:13:00 11/14/2014 23:59:59 CLS Outpatient MAICO JACOBS MD [facility] RAD SCREENING [id number] 05/28/2013 06:59:00 05/28/2013 14:00:00 DIS Outpatient JEIMY KINSEY FACCMAYA FACVernon CCDS [facility] CATH FATIGUE,SOB, ANGINA [id number] 04/25/2013 09:40:00 04/25/2013 23:59:59 CLS Outpatient MAICO JACOBS MD [facility] RAD SCREENING [id number] 02/07/2013 20:55:00 02/08/2013 07:10:00 DIS Outpatient MICHOACANO H[place] POU[place]O KURA KAUPAPA MAORI [facility] SLEEP XENIA [id number] 11/14/2014 13:12:00 Document Registration [id number] 11/14/2014 13:12:00 Document Registration [id number] 11/14/2014 13:12:00 Document Registration [id number] 11/14/2014 13:12:00 Document Registration [id number] 08/05/2010 08:52:00 Document Registration [id number] 08/10/2009 09:15:00 Document Registration [email or web address] 11/14/2014 13:13:41 ACT Document Registration
[2017-11-17] MEDS ORDERED: LACTATED RINGERS 1,000 ML IV STA (08:21)
[2017-11-17] MEDS ORDERED: LACTATED RINGERS 1,000 ML IV ONE (08:27)
[2017-11-17] MEDS ORDERED: LIDOCAINE JELLY 2% 6 ML SYRINGE MM PRN (08:30)
[2017-11-17] MEDS ORDERED: HURRICAINE EXT TUBE (BENZOCAINE) XX PRN (08:30)
[2017-11-17 08:35] VITALS: BP 143/70
--- NOTE | 2017-11-17 08:44 | Pre-Op Note & Conscious Sedat ---
Pre-Operative Progress Note H&P Reviewed The H&P was reviewed, patient examined and no changes noted. Date H&P Reviewed: Nov 17, 2017 Time H&P Reviewed: 08:43 Conscious Sedation Pre-Proced ASA Score 2 For ASA 3 and 4: Consider anesthesia and medical clearance. Also, for patients with a history of failed moderate sedation consider anesthesia. Airway Lungs Heart ASA score ASA 1: a normal healthy patient ASA 2: a patient with a mild systemic disease (mid diabetes, controlled hypertension, obesity ASA 3: a patient with a severe systemic disease that limits activity (angina , COPD, prior Myocardial infarction) ASA 4: a patient with an incapacitating disease that is a constant threat to life (CHF, renal failure) ASA 5: a moribund patient not expected to survive 24 hrs. (ruptured aneurysm) ASA 6: a declared brain patient whose organs are being harvested. For emergent operations, add the letter E after the classification Mallampati Classification Grade 2 Sedation Plan Analgesia, Amnesia, Plan communicated to team members, Discussed options with patient/fam, Discussed risks with patient/fam The patient is an appropriate candidate to undergo the planned procedure, sedation, and anesthesia. The patient immediately re-assessed prior to indication. ELIO NOEL MD Nov 17, 2017 08:44
[2017-11-17] MEDS ORDERED: PROPOFOL INJECTION 50 ML IV ONE (08:53)
[2017-11-17] MEDS ORDERED: HURRICAINE EXT TUBE (BENZOCAINE) ONE (09:29)
[2017-11-17] MEDS ORDERED: LIDOCAINE JELLY 2% 6 ML SYRINGE ONE (09:29)
[2017-11-17 10:30] VITALS: BP 171/96
[2017-11-17 11:00] VITALS: BP 159/85
[2017-11-17 11:01] VITALS: BP 159/85
[2017-11-17] MEDS ORDERED: HYOS0.1283 SL (11:21)
--- NOTE | 2017-11-17 13:55 | Anesthesia-General Post-Op ---
MAC Patient Condition Mental Status/LOC: Same as Preop Cardiovascular: Satisfactory Nausea/Vomiting: Absent Respiratory: Satisfactory Pain: Controlled Complications: Absent Post Op Complications Complications None Follow Up Care/Instructions Patient Instructions None needed. Anesthesiology Discharge Order Discharge Order Patient is doing well, no complaints, stable vital signs, no apparent adverse anesthesia problems. No complications reported per nursing. ROCIO PASCUAL CRNA Nov 17, 2017 13:55
--- NOTE | 2017-11-17 17:02 | OPERATIVE REPORT ---
DATE OF SERVICE: 11/17/2017 PANENDOSCOPY SUMMARY Colonoscopy was performed for screening purposes. EGD was performed for reflux sounding symptoms, refractory to proton pump inhibitor therapy. The patient was placed in the left lateral decubitus position. Prior to doing colonoscopy, digital rectal evaluation was performed. Anal sphincter tone was normal and the perianal reflex was intact. No abnormalities were noted on digital inspection of the anal canal or distal rectal vault other than a small anterior rectocele. The colonoscope was then inserted into the rectum. Under direct visualization, advanced to the cecum. The cecum was identified by identification of the ileocecal valve and cecal strap. Photographic documentation was obtained. Careful inspection was made as the colonoscope was withdrawn. The distal several centimeters of terminal ileum were inspected as well and unremarkable. FINDINGS: There was no evidence for internal or external hemorrhoids. Present in the distal rectum was a diminutive hyperplastic appearing polyp. It was photographed and biopsied and ablated with minimal blood loss. A biopsy was obtained from the rectum and submitted for evaluation for microscopic colitis as the patient had noted new onset diarrhea following antibiotic therapy. There was no evidence to suggest pseudomembranous colitis and no colonic inflammation to gross inspection was noted. The sigmoid colon, descending colon, splenic flexure, transverse colon, hepatic flexure, ascending colon, cecum and distal several centimeters of terminal ileum were unremarkable to visual inspection. No diverticulum was identified. ASSESSMENT: 1. There was no evidence for inflammatory change to visual inspection and no evidence to suggest pseudomembranous colitis today. A biopsy was obtained from the rectum and submitted for evaluation for microscopic colitis. The patient just recently started probiotic therapy, is advised that she continue. 2. One diminutive hyperplastic appearing polyp was removed from the distal rectum as long as there are no surprises on histopathology report as long as there is no family history for colon cancer would not advocate future screening colonoscopy considering age and medical comorbidities. Further recommendations for treatment of this patient's diarrhea will be pending histopathology report of rectal biopsy. We then proceeded with EGD evaluation. The upper endoscope was inserted in the oral cavity and under direct visualization, the esophagus was intubated. The endoscope was passed down the esophagus through the stomach and second portion of the duodenum. Careful inspection was made as the endoscope was withdrawn. The patient tolerated the procedure well. FINDINGS: The posterior hypopharynx, true and false vocal folds and arytenoid aperture were unremarkable to visual inspection. The proximal, mid and distal esophagus were unremarkable as well. The Z-line was distinct and noted at 38 cm from the incisoral orifice and no evidence for hiatal hernia formation was noted. The cardia, fundus and antrum of the stomach were unremarkable as well. There was no evidence for retained food or fluid. Peristalsis appears to be normal. The pylorus, the pyloric channel, the duodenal bulb and second portion of the duodenum were unremarkable as well. Photographic documentation was obtained. ASSESSMENT: Normal EGD. There was a fair chance that acid related reflux is not contributing to this patient's symptoms. She was reassured. I did advise she continue her proton pump inhibitor therapy for now. History consistent with aggravated gastrocolic reflex due to recent dental abscess and or antibiotic therapy. Pt. given Levsin SL .125mg to try AC and told to continue probiotics as they may take a month to help. I thank you for the referral of this pleasant lady. Sincerely, Job ID: [id number] DocumentID: [id number] Dictated Date: 11/17/2017 10:30:48 Software Product Specialist Date: 11/17/2017 17:01:37 Dictated By: ELIO NOEL MD [facility]
== END 2017-11-17 11:05 | disposition home or self-care (01) ==
LOC: ENDO 07:56
PROVIDERS: ATTEND Internal Medicine
DX: Z12.11 Encounter for screening for malignant neoplasm of colon (principal); K62.1 Rectal polyp; K21.9 Gastro-esophageal reflux disease without esophagitis; N81.6 Rectocele; Z96.651 Presence of right artificial knee joint; F32.9 Major depressive disorder, single episode, unspecified; I10 Essential (primary) hypertension; E78.5 Hyperlipidemia, unspecified; G47.33 Obstructive sleep apnea (adult) (pediatric); M06.9 Rheumatoid arthritis, unspecified; Z87.891 Personal history of nicotine dependence; Z79.899 Other long term (current) drug therapy; J45.909 Unspecified asthma, uncomplicated

== ENCOUNTER → 2018-01-29 | Outpatient (CLI) | payer MEDICARE, OTHER ==
[~2018-01-29] MED LIST changes: +HYOS0.1283 SL
== END ==
LOC: CARD 09:54
PROVIDERS: ATTEND Nurse Practitioner Family
DX: I11.9 Hypertensive heart disease without heart failure (principal); I08.3 Combined rheumatic disorders of mitral, aortic and tricuspid valves
CPT/HCPCS: 93306

== ENCOUNTER → 2018-03-06 | Outpatient (CLI) | payer MEDICARE, OTHER ==
[~2018-03-06] MED LIST changes: +CATHETER FLUSH 10 ML SYR IV PRN; +REGADENOSON 0.4 MG/5 ML SYR (LEXISCAN) IV ONE
[2018-03-06 09:51] VITALS: BP 151/77
--- NOTE | 2018-03-07 13:47 | STRESS TEST ---
DATE OF SERVICE: 03/06/2018 RESTING AND POST REGADENOSON TECHNETIUM-99M TETROFOSMIN SPECT CT IMAGING ORDERING PHYSICIAN: PRECIOUS Read PRIMARY CARE PHYSICIAN: Dr. Sahu. CLINICAL DIAGNOSES: Hypertensive cardiovascular disease, shortness of breath, bradycardia. Baseline images were carried out after injection of 10.55 mCi of technetium-99m Tetrofosmin. This was followed by 0.4 mg of regadenoson and 30.2 mCi of technetium-99m Tetrofosmin for stress imaging. The electrocardiogram showed sinus rhythm at baseline. It did not change significantly with the regadenoson infusion. The patient tolerated the procedure well. Review of images at rest and following stress does not indicate any significant perfusion defects consistent with significant myocardial ischemia or infarction. Gated images show normal global left ventricular systolic function with normal regional wall motion. Left ventricular ejection fraction is calculated to be 76%. Left ventricular end diastolic volume is 43 mL. TID is absent (0.81). CONCLUSIONS: 1. No evidence of any significant myocardial ischemia or infarction on this study. 2. Normal regional wall motion. 3. Normal global left ventricular systolic function with a calculated ejection fraction of 76%. Job ID: [id number] DocumentID: [id number] Dictated Date: 03/07/2018 13:14:30 Soil Technologist Date: 03/07/2018 13:46:52 Dictated By: MAYA MUNSON MD, MA, FACP, FACC,
== END ==
LOC: CARD 08:22
PROVIDERS: ATTEND Nurse Practitioner Family
DX: I11.9 Hypertensive heart disease without heart failure (principal); R00.1 Bradycardia, unspecified; R06.09 Other forms of dyspnea
CPT/HCPCS: 78452; 93017

== ENCOUNTER → 2018-06-21 | Outpatient (CLI) | payer MEDICARE, OTHER ==
[~2018-06-21] MED LIST changes: -CATHETER FLUSH 10 ML SYR IV PRN; +LOSA100T57 PO; -LOSA100T8 PO; -REGADENOSON 0.4 MG/5 ML SYR (LEXISCAN) IV ONE
--- NOTE | 2018-06-22 19:19 | Diagnostic Imaging Report ---
INDICATION: Screening. Digital mammogram bilateral screening with 3D tomosynthesis. The current study was also evaluated with a Computer Aided Detection (CAD) system. This study was compared to the prior exams of 02/27/2017, 01/12/2016, and 11/14/2014. At this time, there are no current complaints. FINDINGS: There are scattered fibroglandular densities in both breasts which could obscure a lesion. When compared to the prior study, there has been no significant change. There is no primary or secondary sign of malignancy noted. The 3D tomographic views also fail to show any sign of malignancy. IMPRESSION: There is no evidence of malignancy. ACR BI-RADS Category 1: Negative. Result letter will be mailed to the patient. Note: At least 10% of breast cancer is not imaged by mammography. Dictated on workstation # [id number]
== END ==
LOC: RAD 14:43
PROVIDERS: ATTEND Family Medicine
DX: Z12.31 Encounter for screening mammogram for malignant neoplasm of breast (principal); Z80.3 Family history of malignant neoplasm of breast
CPT/HCPCS: 77067

== ENCOUNTER → 2018-09-14 | Outpatient (CLI) | payer MEDICARE, OTHER ==
--- NOTE | 2018-09-14 17:12 | Diagnostic Imaging Report ---
INDICATION: Asthma, congestion, difficulty breathing. TECHNIQUE: Two view chest 10:34 a.m. CORRELATION STUDY: 04/22/2016 FINDINGS: Heart size is enlarged, stable given difference in technique. Vasculature within normal limits. There has been development of asymmetric eventration and elevation of the anterior right diaphragm. Resultant right basilar lung volume loss. Advanced degenerative change of the thoracic spine with eccentric thoracic kyphosis with mildly compressed lower thoracic vertebral bodies. IMPRESSION: 1. Cardiac enlargement without failure. 2. Development of asymmetric elevated eventrated anterior right diaphragm. Etiology or significance is indeterminate. This results in some asymmetric right lung volume loss. Given no identifiable reason, consideration might be given to CT imaging for followup assessment. Dictated by: Dictated on workstation # [id number]
== END ==
LOC: RAD 10:22
PROVIDERS: ATTEND Nurse Practitioner Family
DX: J45.909 Unspecified asthma, uncomplicated (principal); J98.6 Disorders of diaphragm; I51.7 Cardiomegaly
CPT/HCPCS: 71046

== ENCOUNTER → 2018-10-24 | Outpatient (CLI) | payer MEDICARE, OTHER ==
[~2018-10-24] MED LIST changes: +HOLD METFORMIN - RECEIVED CONTRAST 20 ML VIAL IV SCH; +IOHEXOL 350 MG/ML 100 ML (OMNIPAQUE 350) VIAL IV ONE; +NS 100 ML (IVPB) BAG IV ONE
[2018-10-24 10:33] LABS: CREATININE SERUM 1.11 MG/DL (0.60-1.30)
--- NOTE | 2018-10-24 11:48 | Diagnostic Imaging Report ---
PROCEDURE: CT chest with contrast only. TECHNIQUE: Multiple contiguous axial images were obtained through the chest after administration of intravenous contrast. Auto Exposure Controls were utilized during the CT exam to meet ALARA standards for radiation dose reduction. INDICATION: Asthma and dyspnea on exertion. COMPARISON: No prior CT chest studies are available for comparison. FINDINGS: No axillary lymphadenopathy is detected. No definite hilar or mediastinal lymphadenopathy is detected. No pericardial or pleural fluid is identified. Diffuse ectasia of the thoracic aorta is noted. No dissection is seen. The heart is enlarged. Dependent atelectasis is noted in both lower lobes. No parenchymal mass or infiltrate is identified. Upper abdomen demonstrates hepatic steatosis. Small rounded low densities within the spleen are seen, largest 10 mm in size. These are nonspecific and may represent a small cyst. There is a low-density lesion in the right kidney measuring 2.7 mm suggestive of a cyst. IMPRESSION: 1. Cardiomegaly and thoracic aortic ectasia. 2. No evidence of thoracic lymphadenopathy, mass or infiltrate. 3. Hepatic steatosis. 4. Probable right renal and splenic cysts. Dictated by: Dictated on workstation # [id number]
== END ==
LOC: RAD 09:42
PROVIDERS: ATTEND Nurse Practitioner Family
DX: I51.7 Cardiomegaly (principal); I77.810 Thoracic aortic ectasia; K76.0 Fatty (change of) liver, not elsewhere classified; J45.909 Unspecified asthma, uncomplicated; R91.8 Other nonspecific abnormal finding of lung field
CPT/HCPCS: 36415; 71260; 82565; 84520

== ENCOUNTER → 2018-10-25 | Outpatient (CLI) | payer MEDICARE, OTHER ==
[~2018-10-25] MED LIST changes: -HOLD METFORMIN - RECEIVED CONTRAST 20 ML VIAL IV SCH; -IOHEXOL 350 MG/ML 100 ML (OMNIPAQUE 350) VIAL IV ONE; -NS 100 ML (IVPB) BAG IV ONE; +RT-ALBUTEROL SULF 2.5 MG/3 ML PRE-MIX VIAL INH ONE
== END ==
LOC: RT 10:35
PROVIDERS: ATTEND Nurse Practitioner Family
DX: J45.909 Unspecified asthma, uncomplicated (principal); G47.33 Obstructive sleep apnea (adult) (pediatric)
CPT/HCPCS: 94060; 94640; 94726; 94729

== ENCOUNTER → 2018-12-25 | Outpatient (CLI) | payer MEDICARE, OTHER ==
[~2018-12-25] MED LIST changes: -RT-ALBUTEROL SULF 2.5 MG/3 ML PRE-MIX VIAL INH ONE
[2018-12-25 14:46] LABS: BASOPHILS % (AUTO) 0 % (0-10); EOSINOPHILS # (AUTO) 0.2 10^3/uL (0.0-0.3); EOSINOPHILS % (AUTO) 3 % (0-10); HEMATOCRIT 41 % (35-52); HEMOGLOBIN 13.5 G/DL (11.5-16.0); LYMPHOCYTES # (AUTO) 1.3 X 10^3 (1.0-4.0); LYMPHOCYTES % (AUTO) 19 % (12-44); MEAN CORPUSCULAR HEMOGLOBIN 32 PG (25-34); MEAN CORPUSCULAR HGB CONC 33 G/DL (32-36); MEAN CORPUSCULAR VOLUME 98 FL (80-99); MEAN PLATELET VOLUME 9.8 FL (7.4-10.4); MONOCYTES # (AUTO) 0.7 X 10^3 (0.0-1.0); MONOCYTES % (AUTO) 10 % (0-12); NEUTROPHILS # (AUTO) 4.7 X 10^3 (1.8-7.8); NEUTROPHILS % (AUTO) 68 % (42-75); PLATELET COUNT 243 10^3/uL (130-400); RED CELL DISTRIBUTION WIDTH 13.6 % (10.0-14.5)
--- NOTE | 2018-12-25 15:28 | Diagnostic Imaging Report ---
INDICATION: Feels like something is stuck in throat. Prolonged use of steroids without improvement. TECHNIQUE: Two view chest at 2:52 PM. CORRELATION STUDY: 09/14/2018. FINDINGS: The heart size remains enlarged, stable. The vasculature is within normal limits. There is a tortuous course of the thoracic aorta. Unchanged elevation of the right diaphragm. There is some right lung volume loss. No infiltrate. There is degenerative change of both shoulders with joint space narrowing and osteophyte formation. IMPRESSION: Stable cardiac enlargement without failure. Dictated by: Dictated on workstation # [id number]
== END ==
LOC: LAB 14:30
PROVIDERS: ATTEND Internal Medicine Critical Care Medicine
DX: J98.4 Other disorders of lung (principal); J45.909 Unspecified asthma, uncomplicated; I51.7 Cardiomegaly; G47.33 Obstructive sleep apnea (adult) (pediatric); G47.34 Idiopathic sleep related nonobstructive alveolar hypoventilation; J20.9 Acute bronchitis, unspecified
CPT/HCPCS: 36415; 71046; 83880; 85025

== ENCOUNTER → 2019-01-02 | Outpatient (CLI) | payer MEDICARE, OTHER | LOC: ONC 09:53 | PROVIDERS: ATTEND Nurse Practitioner Adult Health | DX: J45.909 Unspecified asthma, uncomplicated (principal); I10 Essential (primary) hypertension; E03.9 Hypothyroidism, unspecified; Z80.3 Family history of malignant neoplasm of breast; Z84.81 Family history of carrier of genetic disease; Z80.8 Family history of malignant neoplasm of other organs or systems | CPT/HCPCS: 99213 ==

== ENCOUNTER → 2019-01-29 | Outpatient (RCR) | payer MEDICARE, OTHER ==
[2018-10-31 15:43] VITALS: BP 142/60
[2018-11-27 14:30] VITALS: BP 120/60
[2018-11-27 15:39] VITALS: BP 115/60
[2018-11-29 14:22] VITALS: BP 142/75
[2018-11-29 15:28] VITALS: BP 106/80
[2018-12-04 14:42] VITALS: BP 120/60
[2018-12-04 15:18] VITALS: BP 120/82
[2018-12-06 14:28] VITALS: BP 140/72
[2018-12-06 15:27] VITALS: BP 120/70
[2018-12-11 14:35] VITALS: BP 150/60
[2018-12-11 15:27] VITALS: BP 130/68
[2018-12-18 14:25] VITALS: BP_SYST 120; BP_SYST 137; BP_DIAS 60; BP_DIAS 88
[2018-12-18 15:35] VITALS: BP 140/87
[2018-12-20 14:00] VITALS: BP 142/80
[2018-12-20 15:08] VITALS: BP 152/72
[2018-12-25 14:30] VITALS: BP 140/50
[2018-12-25 15:59] VITALS: BP 120/82
[2018-12-27 14:50] VITALS: BP 151/60
[2018-12-27 16:03] VITALS: BP 130/70
[2019-01-01 14:15] VITALS: BP 165/90
[2019-01-01 15:30] VITALS: BP 118/58
[2019-01-08 14:30] VITALS: BP 115/68
[2019-01-08 15:25] VITALS: BP 140/84
[2019-01-10 14:43] VITALS: BP 150/60
[2019-01-10 15:30] VITALS: BP 150/90
[2019-01-15 14:35] VITALS: BP 140/80
[2019-01-15 15:48] VITALS: BP 116/80
[2019-01-22 14:25] VITALS: BP 142/82
[2019-01-22 15:20] VITALS: BP 137/90
[2019-01-24 14:40] VITALS: BP 140/90
[2019-01-24 15:30] VITALS: BP 130/60
[~2019-01-29] VITALS: Ht 161.3 cm; Wt 88.7 kg
[2019-01-29 14:30] VITALS: BP 136/70
[2019-01-29 15:28] VITALS: BP 120/60
[2019-01-31 14:30] VITALS: BP 125/85
[2019-01-31 16:00] VITALS: BP 120/50
== END | disposition home or self-care (01) ==
LOC: PULM 10-31 15:30
PROVIDERS: ATTEND Nurse Practitioner Family
DX: J45.909 Unspecified asthma, uncomplicated (principal); G47.33 Obstructive sleep apnea (adult) (pediatric)
CPT/HCPCS: 99211

== ENCOUNTER 2019-03-07 14:30 | Outpatient (RCR) | payer MEDICARE, OTHER ==
[2019-02-26 14:30] VITALS: BP 140/52
[2019-02-26 15:30] VITALS: BP 130/60
[2019-02-28 14:35] VITALS: BP 150/76
[2019-02-28 15:25] VITALS: BP 130/60
[2019-03-07 14:30] VITALS: BP 150/60
[~2019-03-07 14:30] MED LIST changes: +ASCO-413 PO; -ASCO500T5 PO; -MONT10TA24 PO; +MONT10TA26 PO
[2019-03-07 15:49] VITALS: BP 150/60
--- NOTE | 2019-05-07 09:15 | NUR ---
Pt is a member of pulmonary rehabilitation maintenance group; looked up file to get contact information to inform pt of available exercise hours.
== END 2019-05-08 | disposition home or self-care (01) ==
LOC: PULM 14:30
PROVIDERS: ATTEND Internal Medicine Critical Care Medicine
DX: J45.909 Unspecified asthma, uncomplicated (principal); J98.4 Other disorders of lung; R91.8 Other nonspecific abnormal finding of lung field

== ENCOUNTER → 2020-01-02 | Outpatient (CLI) | payer MEDICARE, OTHER ==
[~2020-01-02] MED LIST changes: -ASCO-413 PO; +ASCO500T71 PO; -PANT40TA3 PO; +PANT40TA52 PO
[2020-01-02 12:11] LABS: HEMOGLOBIN 13.1 g/dL (11.5-16.0); MEAN PLATELET VOLUME 9.9 fL (9.0-12.2); WHITE BLOOD COUNT 7.6 10^3/uL (4.3-11.0)
--- NOTE | 2020-01-02 12:28 | Diagnostic Imaging Report ---
PA and lateral chest at 1159 hours. INDICATION: Respiratory distress. FINDINGS: The cardiomegaly noted on the prior exam of 12/25/2018 is again evident and no different. The central pulmonary vascularity is somewhat prominent but not significantly changed when compared to the prior exam. However, there is a suggestion of faint patchy alveolar/interstitial infiltrates in both lungs. This appearance does suggest pneumonia/atelectasis and may be related to the patient's diagnosis of Covid-19. There is no significant pleural effusion identified. The mediastinum is not widened. The osseous structures are intact. IMPRESSION: The appearance of the chest has worsened since the prior study as a faint patchy alveolar/interstitial infiltrates have developed in both lungs. These findings are most likely due to pneumonia/atelectasis and may well be related to the patient's diagnosis of Covid-19. A followup study would be recommended for continued evaluation. Dictated by: Dictated on workstation # [id number]
[2020-01-02 12:39] LABS: ALBUMIN 4.2 GM/DL (3.2-4.5); BILIRUBIN,TOTAL 0.5 MG/DL (0.1-1.0); CALCIUM 9.7 MG/DL (8.5-10.1); CREATININE SERUM 1.22 MG/DL (0.60-1.30); POTASSIUM 4.3 MMOL/L (3.6-5.0); TOTAL PROTEIN 7.2 GM/DL (6.4-8.2)
== END ==
LOC: RAD 11:47
PROVIDERS: ATTEND Nurse Practitioner Family
DX: R91.8 Other nonspecific abnormal finding of lung field (principal); R06.02 Shortness of breath; R05 Cough
CPT/HCPCS: 36415; 71046; 80053; 85027; 85379

== ENCOUNTER → 2020-01-09 | Outpatient (CLI) | payer MEDICARE, OTHER ==
--- NOTE | 2020-01-09 11:28 | Diagnostic Imaging Report ---
Indication: Shortness of air. Time of exam 11:15 AM Correlation is made with prior chest from 01/02/2020. There is some density noted posteriorly on the lateral view which could represent some minimal residual infiltrate. Otherwise lungs are clear. No effusion or pneumothorax is seen. Pulmonary vascularity is normal. Heart is enlarged but stable. IMPRESSION: Questionable minimal residual density in the base on the lateral view. This study is otherwise unremarkable. Dictated by: Dictated on workstation # [id number]
== END ==
LOC: RAD 10:57
PROVIDERS: ATTEND Nurse Practitioner Family
DX: R06.02 Shortness of breath (principal); Z86.19 Personal history of other infectious and parasitic diseases
CPT/HCPCS: 71046

== ENCOUNTER 2020-07-16 08:00 | Outpatient (RCR) | payer MEDICARE, OTHER ==
[~2020-07-16 08:00] MED LIST changes: -MONT10TA26 PO; +MONT10TA32 PO; +SERT-414 PO; -SERT100T8 PO
== END 2020-08-02 | disposition home or self-care (01) ==
LOC: CR3 08:00
PROVIDERS: ATTEND Family Medicine
DX: Z29.8 Encounter for other specified prophylactic measures (principal)

== ENCOUNTER → 2020-07-21 | Outpatient (CLI) | payer MEDICARE, OTHER | LOC: LABNPT 06:33 | PROVIDERS: ATTEND Emergency Medicine | DX: Z01.812 Encounter for preprocedural laboratory examination (principal); Z20.822 Contact with and (suspected) exposure to COVID-19 | CPT/HCPCS: 87635 ==

== ENCOUNTER → 2020-09-02 | Outpatient (RCR) | payer MEDICARE, OTHER | END | disposition home or self-care (01) | LOC: CR3 08-03 15:08 | PROVIDERS: ATTEND Family Medicine | DX: Z29.8 Encounter for other specified prophylactic measures (principal) ==

== ENCOUNTER → 2020-09-29 | Outpatient (CLI) | payer MEDICARE, OTHER ==
[~2020-09-29] MED LIST changes: +CATHETER FLUSH 10 ML SYR IV PRN; +REGADENOSON 0.4 MG/5 ML SYR (LEXISCAN) IV ONE
[2020-09-29 13:25] VITALS: BP 180/96
--- NOTE | 2020-09-29 19:50 | STRESS TEST ---
DATE OF SERVICE: 09/29/2020 RESTING AND POST REGADENOSON TECHNETIUM-99M TETROFOSMIN SPECT CT IMAGING ORDERING PHYSICIAN: Dr. Eduardo. PRIMARY PHYSICIAN: Dr. Sahu. CLINICAL DIAGNOSIS: Shortness of breath. Baseline images were carried out after injection of 10.4 mCi of technetium-99m Tetrofosmin. This was followed by 0.4 mg regadenoson and 31.8 mCi of technetium-99m Tetrofosmin for stress imaging. The electrocardiogram showed sinus rhythm at baseline and did not change significantly with the regadenoson infusion. The patient tolerated the procedure well. Image acquisition was suboptimal because the patient had to keep her arm down for image acquisition. Review of images at rest and following stress indicates a somewhat patchy tracer uptake, but there does not appear to be any distinct evidence of significant myocardial ischemia or infarction. Gated images showed lyzyhy-kb-aydztjjmloix left ventricular systolic function. Left ventricular ejection fraction is calculated to be 76%. CONCLUSIONS: 1. No evidence of significant myocardial ischemia or infarction on this study. 2. Normal to hyperdynamic left ventricular systolic function without regional wall motion abnormality and with a calculated ejection fraction 76%. Job ID: [id number] DocumentID: [id number] Dictated Date: 09/29/2020 17:51:37 Senior Packaging Engineer Date: 09/29/2020 19:49:47 Dictated By: MAYA EDUARDO MD, MA, FACP, FACC,
== END ==
LOC: CARD 10:30
PROVIDERS: ATTEND Internal Medicine Cardiovascular Disease
DX: I08.0 Rheumatic disorders of both mitral and aortic valves (principal)
CPT/HCPCS: 78452; 93017; 93306; A9502

== ENCOUNTER 2020-10-02 13:28 | Outpatient (RCR) | payer MEDICARE, OTHER ==
[~2020-10-02 13:28] MED LIST changes: -CATHETER FLUSH 10 ML SYR IV PRN; -REGADENOSON 0.4 MG/5 ML SYR (LEXISCAN) IV ONE
== END 2020-10-04 | disposition home or self-care (01) ==
LOC: CR3 13:28
PROVIDERS: ATTEND Family Medicine
DX: Z29.8 Encounter for other specified prophylactic measures (principal)

== ENCOUNTER → 2020-11-04 | Outpatient (RCR) | payer MEDICARE, OTHER | END | disposition home or self-care (01) | LOC: CR3 10-05 16:13 | PROVIDERS: ATTEND Family Medicine | DX: Z29.8 Encounter for other specified prophylactic measures (principal) ==

== ENCOUNTER 2020-11-30 13:10 | Outpatient (RCR) | payer MEDICARE, OTHER | END 2020-12-11 | disposition home or self-care (01) | LOC: CR3 13:10 | PROVIDERS: ATTEND Family Medicine | DX: Z29.8 Encounter for other specified prophylactic measures (principal) ==

== ENCOUNTER → 2020-12-04 | Outpatient (CLI) | payer MEDICARE, OTHER | LOC: LABNPT 06:31 | PROVIDERS: ATTEND Podiatrist | DX: Z20.822 Contact with and (suspected) exposure to COVID-19 (principal) | CPT/HCPCS: 87635 ==

== ENCOUNTER → 2021-01-07 | Outpatient (CLI) | payer MEDICARE, OTHER ==
--- NOTE | 2021-01-07 17:15 | Diagnostic Imaging Report ---
PROCEDURE: US Thyroid. TECHNIQUE: Multiple real-time grayscale images were obtained of the thyroid in various projections. INDICATION: Followup fullness under jaw. FINDINGS: The right lobe measures 4.1 x 1.8 x 1.8 cm. The left lobe measures 5.2 x 1.6 x 1 cm. Lobes are mildly heterogeneous. There is a small clustered group of calcifications demonstrated inferiorly and medially in the right lobe measuring approximately 4 mm. No abnormal lymph nodes were demonstrated. IMPRESSION: 1. Small group of calcifications inferiorly and medially without associated mass. TI-RADS 2 Dictated by: Dictated on workstation # [id number]
== END ==
LOC: RAD 15:45
PROVIDERS: ATTEND Otolaryngology Otolaryngology/Facial Plastic Surgery
DX: R22.0 Localized swelling, mass and lump, head (principal)
CPT/HCPCS: 76536

== ENCOUNTER → 2021-01-19 | Outpatient (CLI) | payer MEDICARE, OTHER ==
[~2021-01-19] MED LIST changes: +CATHETER FLUSH 10 ML SYR IV PRN; +HOLD METFORMIN - RECEIVED CONTRAST 20 ML VIAL IV SCH; +IOHEXOL 350 MG/ML 100 ML (OMNIPAQUE 350) VIAL IV ONE; +MONT-40 PO; -MONT10TA32 PO; +MULT-1054 PO; -MULT-985 PO; +NS 100 ML (IVPB) BAG IV ONE
--- NOTE | 2021-01-19 14:36 | Diagnostic Imaging Report ---
PROCEDURE: CT neck soft tissue with contrast. TECHNIQUE: Multiple contiguous axial images were obtained through the neck after the administration of contrast. Auto Exposure Controls were utilized during the CT exam to meet ALARA standards for radiation dose reduction. INDICATION: Lump under the right jaw. Growing in size. COMPARISON: None. FINDINGS: The area marked with the external BB in the right neck is visualized. No corresponding mass or fluid collection is seen in this area. This is in the region of the normal-appearing right submandibular gland and a normal somewhat superficial vein which appears asymmetrically prominent compared to the left side. The posterior nasopharynx and oropharynx demonstrate appropriate symmetry. Tonsilloliths are seen in the bilateral palatine tonsils. There is no displacement of the parapharyngeal fat planes. There is no abnormal process evident within the prevertebral or retropharyngeal space. There is no evidence of abnormal thickening of the epiglottis or aryepiglottic folds. The vocal folds appear symmetric. The parotid, submandibular and thyroid gland are unremarkable. No pathologically enlarged cervical lymph nodes are evident. No focal inflammatory changes are demonstrated. No soft tissue mass or fluid collection demonstrated. The vascular structures the neck demonstrate no evidence of high-grade stenosis on this nondedicated exam. The visualized lung apices are clear. The visualized intracranial contents demonstrate no evidence of pathologic intracranial enhancement or intracranial mass effect. Visualized orbital contents are unremarkable. The visualized paranasal sinuses are clear. The mastoids and middle ears are clear. No acute osseous abnormality in the cervical spine. There is reversal of the normal lordotic curvature of the cervical spine centered at the C4 level. IMPRESSION: 1. No evidence of mass or fluid collection in the area marked with the external BB in the right submandibular region. This corresponds to normal-appearing submandibular gland and a somewhat asymmetrically prominent vein in the right neck. 2. No pathologically enlarged lymphadenopathy in the neck. 3. Bilateral tonsilloliths. No evidence of acute tonsillitis. No airway compromise. Dictated by: Dictated on workstation # [id number]
== END ==
LOC: RAD 11:45
PROVIDERS: ATTEND Otolaryngology Otolaryngology/Facial Plastic Surgery
DX: J35.8 Other chronic diseases of tonsils and adenoids (principal)
CPT/HCPCS: 70491

== ENCOUNTER 2021-06-09 15:11 | Outpatient (RCR) | payer MEDICARE, OTHER ==
[~2021-06-09 15:11] MED LIST changes: -CATHETER FLUSH 10 ML SYR IV PRN; -HOLD METFORMIN - RECEIVED CONTRAST 20 ML VIAL IV SCH; -IOHEXOL 350 MG/ML 100 ML (OMNIPAQUE 350) VIAL IV ONE; -NS 100 ML (IVPB) BAG IV ONE
== END 2021-06-19 | disposition home or self-care (01) ==
LOC: CR3 15:11
PROVIDERS: ATTEND Family Medicine
DX: Z29.8 Encounter for other specified prophylactic measures (principal)

== ENCOUNTER → 2021-10-26 | Outpatient (CLI) | payer MEDICARE, OTHER | LOC: CARD 13:08 | PROVIDERS: ATTEND Nurse Practitioner Family | DX: R00.1 Bradycardia, unspecified (principal) | CPT/HCPCS: 93225; 93226 ==

== ENCOUNTER 2021-11-02 08:00 | Day surgery (SDC) | payer MEDICARE, OTHER ==
[2021-11-02] VITALS (9 sets, daily range): BP systolic 101–161; BP diastolic 62–77
[~2021-11-02] VITALS: Ht 162.6 cm; Wt 90.6 kg
[2021-11-02 07:40] LABS: HEMATOCRIT 37 % (35-52); HEMOGLOBIN 12.4 g/dL (11.5-16.0); MEAN CORPUSCULAR HEMOGLOBIN 33 pg (25-34); MEAN CORPUSCULAR HGB CONC 33 g/dL (32-36); MEAN CORPUSCULAR VOLUME 100 fL (80-99); MEAN PLATELET VOLUME 10.4 fL (9.0-12.2); PLATELET COUNT 234 10^3/uL (130-400); WHITE BLOOD COUNT 8.3 10^3/uL (4.3-11.0)
[2021-11-02 07:53] LABS: PROTHROMBIN TIME PATIENT 13.8 SEC (12.2-14.7)
[~2021-11-02 08:00] MED LIST changes: +HEParin (CATH LAB) 2,000 ML IV ONE; +LIDOCAINE 1% INJ 20 ML VIAL ONE; +MIDAZOLAM 2 MG/2 ML (VERSED) VIAL ONE; +NS IV 1000 ML 1,000 ML ONE; +fentaNYL INJ 100 MCG/2 ML AMP ONE
[2021-11-02 08:08] LABS: ALANINE AMINOTRANSFERASE 24 U/L (0-55); ALBUMIN 4.6 GM/DL (3.2-4.5); ALKALINE PHOSPHATASE 77 U/L (40-136); BILIRUBIN,TOTAL 0.7 MG/DL (0.1-1.0); BUN/CREATININE RATIO 16; CALCIUM 9.5 MG/DL (8.5-10.1); CARBON DIOXIDE 22 MMOL/L (21-32); CHLORIDE 105 MMOL/L (98-107); CHOLESTEROL 259 MG/DL (< 200); CREATININE SERUM 1.47 MG/DL (0.60-1.30); GFR ESTIMATED 37; GLUCOSE 107 MG/DL (70-105); HDL CHOLESTEROL 81 MG/DL (40-60); SODIUM 142 MMOL/L (135-145); TOTAL PROTEIN 7.2 GM/DL (6.4-8.2); TRIGLYCERIDES 96 MG/DL (<150); VLDL CHOLESTEROL 19 MG/DL (5-40)
[2021-11-02] MEDS ORDERED: FLUT1BLS3 IH (08:09)
[2021-11-02] MEDS ORDERED: [UNRECOGNIZED DRUG - CODE] TP (08:09)
[2021-11-02] MEDS ORDERED: BETA15CR3 TP (08:09)
[2021-11-02] MEDS ORDERED: AZEL23SP2 NS (08:09)
[2021-11-02] MEDS ORDERED: cpap (08:09)
[2021-11-02] MEDS ORDERED: FAMO20TA3 PO (08:09)
[2021-11-02] MEDS ORDERED: LEVO75TA97 PO (08:09)
[2021-11-02] MEDS ORDERED: ALBU8.5H9 IH (08:09)
[2021-11-02] MEDS ORDERED: LIDOCAINE 1% INJ 20 ML VIAL ONE (09:00)
[2021-11-02] MEDS: NS IV 1000 ML 1,000 ML IV SCH ×2 (09:49→09:54)
[2021-11-02] MEDS ORDERED: MIDAZOLAM 2 MG/2 ML (VERSED) VIAL ONE (09:51)
[2021-11-02] MEDS ORDERED: NS IV 1000 ML 1,000 ML ONE (09:52)
--- NOTE | 2021-11-02 10:02 | Cardiac Procedure Note-CS/ASA ---
Pre-Procedure Note Pre-Op Procedure Note Date of Available H&P: Oct 27, 2021 Date H&P Reviewed: Nov 02, 2021 Time H&P Reviewed: 08:40 History & Physical: No changes noted Conscious Sedation Pre-Proced Time 08:40 ASA Score 3 For ASA 3 and 4: Consider anesthesia and medical clearance. Also, for patients with a history of failed moderate sedation consider anesthesia. Airway Lungs Heart ASA score ASA 1: a normal healthy patient ASA 2: a patient with a mild systemic disease (mid diabetes, controlled hypertension, obesity ASA 3: a patient with a severe systemic disease that limits activity (angina, COPD, prior Myocardial infarction) ASA 4: a patient with an incapacitating disease that is a constant threat to life (CHF, renal failure) ASA 5: a moribund patient not expected to survive 24 hrs. (ruptured aneurysm) ASA 6: a declared brain- patient whose organs are being harvested. For emergent operations, add the letter E after the classification Mallampati Classification Grade 2 Sedation Plan Analgesia, Amnesia, Plan communicated to team members The patient is an appropriate candidate to undergo the planned procedure, sedation, and anesthesia. The patient immediately re-assessed prior to indication. MAYA MUNSON MD FACP FAC CCDS Nov 02, 2021 10:02
[2021-11-02] MEDS ORDERED: POTA-177 PO (10:07)
[2021-11-02] MEDS ORDERED: FURO40TA4 PO (10:07)
--- NOTE | 2021-11-02 10:08 | Discharge Inst-Cardiology ---
Discharge Inst-Cardiac Discharge Medications New Medications: Furosemide (Furosemide) 40 Mg Tablet 40 MG PO DAILY for 30 Days, #30 TAB 3 Refills Potassium Chloride (Potassium Chloride) 10 Meq Tab.er.prt 10 MEQ PO DAILY, #30 TAB 3 Refills Continued Medications: Albuterol Sulfate (Proair Hfa) 90 Mcg Hfa.aer.ad 2 PUFF IH QID PRN for AIR HUNGER, GM Azelastine/Fluticasone (Azelastin-Flutic 137-50Mcg Spr) 137 Mcg-50 Mcg/[place].pump 1 INHALER NS BID, ML Betamethasone Valerate (Betamethasone Valerate) 0.1 % Cream..g. 1 GM TP DAILY PRN for ITCHING, EA [cpap] () 1 with 02 2l wear nightly Famotidine (Acid Critical Care Unit Nurse (FAMOTIDINE)) 20 Mg Tablet 20 MG PO DAILY PRN for STOMACH UPSET, TAB Fluorouracil (Fluorouracil) 5 % Solution 10 ML TP BID, EA Fluticasone/Umeclidin/Vilanter (Trelegy Ellipta 100-62.5-25) 100-62.5 Blst.w.dev 1 PUFF IH DAILY Levothyroxine Sodium (Euthyrox) 75 Mcg Tablet 75 MCG PO DAILY, TAB Losartan Potassium (Losartan Potassium) 100 Mg Tablet 100 MG PO DAILY, TAB Montelukast Sodium (Montelukast Sodium) 10 Mg Tablet 10 MG PO DAILY, TAB Multivitamin with Minerals (Hair, Skin & Nails) 1 Each Tablet 1 EACH PO DAILY, TAB Sertraline HCl (Sertraline HCl) 100 Mg Tablet 150 MG PO DAILY, TAB take 1 1/2 tabs for needed dose MAYA MUNSON MD FACP FAC CCDS Nov 02, 2021 10:08
--- NOTE | 2021-11-02 10:09 | Discharge Inst-Post CATH ---
Discharge Inst-CATH/EP Post Cardiac Cath/EP D/C Inst Follow Up/Plan F/u with Dr Eduardo next week Have labs drawn a day prior to f/u with Dr Eduardo ACTIVITY * Go Home directly and rest. * Limit activity of the leg (or wrist if it was used) for 7 days including aerobics, swimming, jogging, bicycling, etc. * Restrict stair-climbing for 7 days if possible, if not, climb up with your non-cath leg, then bring together on the same step. * Avoid lifting, pushing, pulling or excessive movement of the affected extremity for 7 days. * Customary sexual activity may be resumed after 2 days-use caution not to use a position that strains or causes pain to the affected extremity. * No driving for 24 hours. * NO SMOKING. * Avoid straining for bowel movements for 7 days. * Gentle walking on level ground is allowed. * Returning to work will depend on the type of procedure and the results. Your doctor will discuss this with you. CALL YOUR DOCTOR FOR ANY OF THE FOLLOWING: *If bleeding from the puncture site occurs- Apply gentle pressure to site with clean cloth and call your doctor or EMS. * If a knot or lump forms under the skin, increases in size, or causes pain. * If bruising appears to be worsening or moving further down your leg instead of disappearing. * Temperature above 101 F. CARE OF YOUR GROIN INCISION; * Bruising or purple discoloration of the skin near the puncture site is common. * You may shower only, no bathtub bathing for 5 days. Be careful to avoid slipping as your leg may feel stiff. * If a closure device was used on your femoral artery, please see the attached guide regarding care of the device and your leg. * Leave dressing on FOR 24 hours. CARE OF YOUR WRIST INCISION; * Bruising or purple discoloration of the skin near the puncture site is common. * You may shower. * DO NOT submerge wrist. * Leave dressing on FOR 24 hours. MAYA EDUARDO MD FACP [facility] CCDS Nov 02, 2021 10:09
[2021-11-02] MEDS ORDERED: NS IV 1000 ML 1,000 ML IV SCH (10:15)
[2021-11-02] MEDS ORDERED: PATIENT MAY USE OWN MEDS, ALL PO SCH ×2 (10:15→12:30)
--- NOTE | 2021-11-02 11:00 | CARDIAC CATHETERIZATION ---
DATE OF SERVICE: 11/02/2021 CARDIAC CATHETERIZATION REPORT The patient is a 76-year-old lady, who has been experiencing increasing fatigue and shortness of breath and generalized weakness. Symptoms have been progressive for several months. Complete heart catheterization was carried out today after having obtained an informed consent. DESCRIPTION OF PROCEDURE: She was brought to the cardiac catheterization laboratory in a fasting state. Right groin was prepared and draped in the usual sterile fashion. Lidocaine 1% was used for local anesthesia. Because of baseline renal insufficiency, vigorous perioperative hydration was carried out. She received a total of 1 liter of normal saline before and during the procedure. Vigorous postoperative hydration was also then continued. We used a Modified Seldinger technique to advance a 16-[place] sheath into the right femoral vein and a 5-[place] sheath into the right femoral artery. We used a 7-[place] Fallon-Hernandez catheter to carry out right heart catheterization and to measure oxygen saturations in the various chambers of the heart. We then used a 5-[place] pigtail catheter to carry out left heart catheterization. We did not perform left ventricular angiography. This was to conserve contrast because of the patient's renal insufficiency. We used a 5-[place] JL4 catheter for left coronary angiography. We tried various catheters to carry out selective angiography of the right coronary. 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 We were not able to selectively engage it, but we got good views with a 5-[place] JR4 diagnostic catheter. Manual pressure was used to achieve hemostasis following sheath removal. She tolerated the procedure well. HEMODYNAMICS: Pulmonary artery pressure is 52/19 with a mean of 32 mmHg. Mean pulmonary capillary wedge pressure is 17 mmHg. Right ventricular pressure is 58/19. Mean right atrial pressure is 14 mmHg. Left ventricular pressure is 164/30. Ascending aortic pressure is 161/74 with a mean of 108 mmHg. Cardiac output by thermodilution is 5.23 liters per minute. There was no significant oxygen saturation differences in the right heart chambers. Pulmonary vascular resistance is measured at 3.69 Wood units. CORONARY ANGIOGRAPHY: Left main coronary artery is free of significant disease. Left anterior descending and left circumflex artery do not exhibit significant disease. Right coronary artery is dominant. 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 The right coronary artery is codominant and does not exhibit significant disease. CONCLUSIONS: 1. Moderate pulmonary hypertension, which appears to be due to chronic diastolic heart failure. 2. No significant coronary artery disease. DISCUSSION AND RECOMMENDATIONS: Diuretics are being added to the regimen. Close outpatient followup is advised. Sleep studies are advised. Treatment and diagnostic plan will be adjusted on an outpatient basis. Job ID: [id number] DocumentID: [id number] Dictated Date: 11/02/2021 10:19:09 Rehab Office Coordinator Date: 11/02/2021 10:59:51 Dictated By: MAYA MUNSON MD, MA, FACP, FACC,
== END 2021-11-02 15:05 | disposition home or self-care (01) ==
LOC: CATH 08:00
PROVIDERS: ATTEND Internal Medicine Cardiovascular Disease
DX: I27.20 Pulmonary hypertension, unspecified (principal); Z79.899 Other long term (current) drug therapy; E66.9 Obesity, unspecified; Z68.34 Body mass index [BMI] 34.0-34.9, adult; Z87.891 Personal history of nicotine dependence; J45.909 Unspecified asthma, uncomplicated; G47.33 Obstructive sleep apnea (adult) (pediatric); E03.9 Hypothyroidism, unspecified; Q21.1 Atrial septal defect; I08.0 Rheumatic disorders of both mitral and aortic valves
CPT/HCPCS: 80053; 80061; 85027; 85610; 85730; 87081; 93005; 93460; C1769; C1894 ×2; 36415

== ENCOUNTER → 2021-11-09 | Outpatient (CLI) | payer MEDICARE, OTHER ==
[~2021-11-09] MED LIST changes: +ALBU8.5H9 IH; +AZEL23SP2 NS; +BETA15CR3 TP; +FAMO20TA3 PO; +FLUT1BLS3 IH; +FURO40TA4 PO; -HEParin (CATH LAB) 2,000 ML IV ONE; +LEVO75TA97 PO; -LIDOCAINE 1% INJ 20 ML VIAL ONE; -MIDAZOLAM 2 MG/2 ML (VERSED) VIAL ONE; -NS IV 1000 ML 1,000 ML ONE; +POTA-177 PO; +[UNRECOGNIZED DRUG - CODE] TP; +cpap; -fentaNYL INJ 100 MCG/2 ML AMP ONE
[2021-11-09 10:12] LABS: CALCIUM 9.5 MG/DL (8.5-10.1); CREATININE SERUM 1.57 MG/DL (0.60-1.30); MAGNESIUM 2.2 MG/DL (1.6-2.4); POTASSIUM 4.9 MMOL/L (3.6-5.0)
== END ==
LOC: LAB 09:42
PROVIDERS: ATTEND Internal Medicine Cardiovascular Disease
DX: R06.09 Other forms of dyspnea (principal)
CPT/HCPCS: 36415; 80048; 83735

== ENCOUNTER → 2021-11-30 | Outpatient (CLI) | payer MEDICARE, OTHER ==
[2021-11-30 09:38] LABS: HEMATOCRIT 36 % (35-52); HEMOGLOBIN 12.2 g/dL (11.5-16.0); MEAN CORPUSCULAR HEMOGLOBIN 33 pg (25-34); MEAN CORPUSCULAR HGB CONC 34 g/dL (32-36); MEAN CORPUSCULAR VOLUME 99 fL (80-99); MEAN PLATELET VOLUME 10.1 fL (9.0-12.2); PLATELET COUNT 248 10^3/uL (130-400); WHITE BLOOD COUNT 6.6 10^3/uL (4.3-11.0)
[2021-11-30 09:48] LABS: POTASSIUM 4.5 MMOL/L (3.6-5.0)
[2021-11-30 09:49] LABS: CALCIUM 9.5 MG/DL (8.5-10.1)
[2021-11-30 09:54] LABS: CREATININE SERUM 1.62 MG/DL (0.60-1.30)
== END ==
LOC: LAB 09:13
PROVIDERS: ATTEND Internal Medicine Cardiovascular Disease
DX: I08.0 Rheumatic disorders of both mitral and aortic valves (principal); G47.33 Obstructive sleep apnea (adult) (pediatric); I50.32 Chronic diastolic (congestive) heart failure; Q21.10 Atrial septal defect, unspecified
CPT/HCPCS: 36415; 80048; 85027

== ENCOUNTER 2022-08-24 08:51 | Outpatient (CLI) | payer MEDICARE, OTHER ==
[~2022-08-24] VITALS: Ht 162 cm; Wt 89.0 kg
[~2022-08-24 08:51] MED LIST changes: -LOSA100T57 PO; +LOSA100T58 PO
[2022-08-25] MEDS ORDERED: ALBU8.5H6 INH (09:29)
[2022-08-25] MEDS ORDERED: FLUT1BLS15 IH (09:29)
[2022-08-25] MEDS ORDERED: LORA10CA PO (09:30)
== END 2022-08-25 09:36 | disposition home or self-care (01) ==
LOC: PREOP 08:51
PROVIDERS: ATTEND Internal Medicine
DX: Z01.818 Encounter for other preprocedural examination (principal)

== ENCOUNTER 2022-09-02 10:06 | Day surgery (SDC) | payer MEDICARE, OTHER ==
--- NOTE | 2022-08-25 08:48 | HISTORY AND PHYSICAL ---
PANENDOSCOPY HISTORY AND PHYSICAL HISTORY OF PRESENT ILLNESS: The patient is a 77-year-old white female referred by [facility] for diagnostic panendoscopy. She has noted about several year history of diarrhea, but has gotten worse over the past several months. She reports that is nonbloody, most often occurs in the morning after breakfast, has had urgency associated with this and occasional fecal incontinence without bright red blood per rectum or melena. On average, she will go 3 or 4 times predominantly in the morning. Does not have any nocturnal stool. She is not aware of any family history for colon cancer. There have been no associated medication changes and no one that she has been associated with has been ill in the family or otherwise she is aware of. She denies any associated travel history. She had been on omeprazole, but discontinued the medication, thought that short-term, it may have help a little, but then has had recurrence of symptoms. She has intermittent dysphagia to solids and liquids, which is very unpredictable with no associated weight loss, melena or bright red blood per rectum. PAST MEDICAL HISTORY: Significant for depression, hypertension and asthma with a distant past smoking history that she can tell approximately 10 pack years, but quit over 30 years ago. She reports no significant alcohol consumption. She has a history of obstructive sleep apnea, wears 2 liters of oxygen at night with no reported daytime hypoxia and is compliant with CPAP. PAST SURGICAL HISTORY: She had bilateral total knee replacement, cataract extraction, hammertoe repair. FAMILY HISTORY: She is not aware of any family history for GI tract malignancy or inflammatory bowel disease. REVIEW OF SYSTEMS: CONSTITUTIONAL: Denies night sweats, chills, fever or change in weight. GASTROINTESTINAL: As noted in the HPI. PULMONARY: Denies any current significant problems with cough or wheezing. Stable dyspnea on exertion. No dyspnea at rest. CARDIOVASCULAR: Denies chest pain, orthopnea, PND, or pedal edema. PHYSICAL EXAMINATION: GENERAL: Reveals a white female, appeared to be in no acute distress. VITAL SIGNS: O2 saturation 96% on room air, weight 199 pounds, blood pressure 116/72. HEENT: Unremarkable. Sclerae nonicteric. CHEST: Clear to auscultation. HEART: Reveals regular rate and rhythm without murmur, S3, or S4. ABDOMEN: Soft, supple without mass, organomegaly, or tenderness. EXTREMITIES: No cyanosis, clubbing or edema. ASSESSMENT AND PLAN: For further investigation of dysphagia as well as diarrhea, the patient is being set up for panendoscopy. We will need biopsies for microscopic colitis if there is no obvious evidence for inflammation and we will attempt terminal ileal intubation as well. Prep instructions were given and questions were answered. I thank you for the referral of this pleasant lady. Job ID: [id number] DocumentID: [id number] Dictated Date: 08/22/2022 16:24:14 Manager Of Project Management Date: 08/22/2022 16:47:00 Dictated By: ELIO NOEL MD
[~2022-09-02] VITALS: Ht 162 cm; Wt 89.0 kg
[~2022-09-02 10:06] MED LIST changes: +ALBU8.5H6 INH; +FLUT1BLS15 IH; +LORA10CA PO
[2022-09-02] MEDS ORDERED: LACTATED RINGERS 1,000 ML IV STA (10:13)
[2022-09-02] MEDS ORDERED: HURRICAINE EXT TUBE (BENZOCAINE) XX PRN (10:15)
[2022-09-02 10:30] VITALS: BP 143/63
--- NOTE | 2022-09-02 10:59 | Pre-Op Note & Conscious Sedat ---
Pre-Operative Progress Note Date H&P Reviewed: Sep 02, 2022 Time H&P Reviewed: 10:58 History & Physical: H&P Reviewed, Patient Examed, No changes noted Pre-Op Diagnosis: screening colon dysphagia Moderate Sedation PreProcedure ASA Score 2 Airway Lungs Heart ASA score ASA 1: a normal healthy patient ASA 2: a patient with a mild systemic disease (mid diabetes, controlled hypertension, obesity ASA 3: a patient with a severe systemic disease that limits activity (angina, COPD, prior Myocardial infarction) ASA 4: a patient with an incapacitating disease that is a constant threat to life (CHF, renal failure) ASA 5: a moribund patient not expected to survive 24 hrs. (ruptured aneurysm) ASA 6: a declared brain- patient whose organs are being harvested. For emergent operations, add the letter E after the classification Mallampati Classification Grade 2 Sedation Plan Analgesia, Amnesia, Plan communicated to team members, Discussed options with patient/fam, Discussed risks with patient/fam The patient is an appropriate candidate to undergo the planned procedure, sedation, and anesthesia. The patient immediately re-assessed prior to indication. ELIO NOEL MD Sep 02, 2022 10:59
[2022-09-02] MEDS ORDERED: PROPOFOL INJECTION 50 ML IV ONE (11:00)
[2022-09-02 11:35] VITALS: BP 110/55
--- NOTE | 2022-09-02 11:35 | Anesthesia-General Post-Op ---
MAC Patient Condition Mental Status/LOC: Same as Preop Cardiovascular: Satisfactory Nausea/Vomiting: Absent Respiratory: Satisfactory Pain: Controlled Complications: Absent Post Op Complications Complications None Follow Up Care/Instructions Patient Instructions None needed. Anesthesiology Discharge Order Discharge Order Patient is doing well, no complaints, stable vital signs, no apparent adverse anesthesia problems. No complications reported per nursing. POLI FABIAN CRNA Sep 02, 2022 11:35
--- NOTE | 2022-09-02 11:43 | Progress Note-Post Operative ---
Post-Procedure Note Physician (s)/Pesticide Use Medical Coordinator (s) Physician ELIO NOEL MD Pre-Procedure Diagnosis Pre-Procedure Diagnosis: screening colon dysphagia Post-Procedure Diagnosis Post-operative diagnosis: The patient was placed in the left lateral decubitus position. The endoscope inserted in the oral cavity and under direct visualization the esophagus is intubated. The scope was passed down esophagus to stomach and the second portion of the duodenum. A careful inspection was made as the endoscope was withdrawn. Findings The posterior pharynx epiglottis arytenoid aperture and true and false vocal folds were unremarkable to gross inspection. The proximal mid and distal esophagus are unremarkable there are no evidence for rings webs strictures Dimas's change or extrinsic compression no evidence for erosive esophagitis. Biopsies obtained from the Z-line as well as the midesophagus to evaluate for underlying eosinophilic esophagitis. The cardia and the fundus of the stomach are unremarkable. There is some linear erythematous streaking of the antrum a biopsy was obtained and submitted for histopathology and Helicobacter evaluation. The pylorus the pyloric channel duodenal bulb and second portion of the duodenum were unremarkable with normal-appearing villous architecture. Considering diarrhea however a biopsy was obtained and submitted to rule out villous atrophy. No evidence for duodenitis was noted. A/P 1. Mild antral gastritis is present with an otherwise unremarkable EGD evaluation biopsies were obtained from the mid and distal esophagus to rule out eosinophilic esophagitis antral biopsy was obtained for Helicobacter evaluation and second portion of the duodenum was biopsied To evaluate for underlying villous atrophy although on gross inspection villous architecture. Unremarkable. We then proceeded with colonoscopy. Prior to undergoing colonoscopy digital rectal evaluation was performed. Anal sphincter tone was normal and the perianal reflexes intact. No abnormalities noted on digital inspection anal canal or distal rectal vault. The colonoscope was then inserted into the rectum and under direct visitation advanced the cecum. The terminal ileum was intubated and distal 5 to 10 cm of terminal ileum were inspected as well. A careful inspection was made as the colonoscope was withdrawn. Quality the prep was good. Findings there are no evidence for internal or external hemorrhoids and the rectum was unremarkable mild diverticular disease confined to the sigmoid colon was present without evidence for diverticulitis. The descending colon splenic flexure transverse colon hepatic flexure ascending colon and distal terminal ileum were unremarkable with no evidence for ileitis or colitis. Biopsies from the ascending colon and rectum were obtained to evaluate for underlying microscopic colitis. A/P 1. Other than mild diverticular disease confined to the sigmoid colon this was a normal-appearing colonoscopy to the cecum including distal 5 to 10 cm of terminal ileum. Biopsies are pending for evaluation for underlying microscopic colitis with further recommendations pending histopathology evaluation. I thank you for the furl this pleasant lady sincerely Elio Noel MD. CC: Dr. Michaela JACOBS MD. ELIO NOEL MD Sep 02, 2022 11:43
[2022-09-02 11:50] VITALS: BP 122/61
[2022-09-02 11:59] VITALS: BP 122/61
== END 2022-09-02 12:17 | disposition home or self-care (01) ==
LOC: ENDO 10:06
PROVIDERS: ATTEND Internal Medicine
DX: K29.60 Other gastritis without bleeding (principal); K21.00 Gastro-esophageal reflux disease with esophagitis, without bleeding; R13.10 Dysphagia, unspecified; K31.89 Other diseases of stomach and duodenum; K57.30 Diverticulosis of large intestine without perforation or abscess without bleeding; K63.89 Other specified diseases of intestine; R19.7 Diarrhea, unspecified; G47.33 Obstructive sleep apnea (adult) (pediatric); Z99.81 Dependence on supplemental oxygen; Z87.891 Personal history of nicotine dependence; Z79.899 Other long term (current) drug therapy